=== PATIENT | male | born 1950 | race Caucasian/White ===

== ENCOUNTER 2016-11-30 13:07 | Inpatient (IN) | payer MEDICARE, OTHER ==
[~2016-11-30] VITALS: Ht 180.3 cm; Wt 185.7 kg
[~2016-11-30 13:07] MED LIST: CYCL10TA2 PO; HYDR-2680 PO; LEVO175T5 PO; LEVO200T5 PO; TRAM50TA PO
[2016-11-30 13:43] LABS: BASE EXCESS COOX 5 mmol/L (-3-3); CARBON MONOXIDE 0.2 % (0.0-1.9); HCO3 COOX 26 mmol/L (21-28); METHEMOGLOBIN 0.3 % (0.0-1.9); OXYHEMOGLOBIN 94.1 %; PCO2 COOX 29 mmHg (35-46); PO2 COOX 69 mmHg (65-108); SAT O2 COOX 95 % (92-99)
--- NOTE | 2016-11-30 14:03 | RAD ---
Portable chest, 2017: History: Shortness of breath, hypoxia The heart size and pulmonary vascularity are normal. The lungs are clear. There is no evidence of pleural fluid. IMPRESSION: No acute cardiopulmonary abnormality is detected.
[2016-11-30] MEDS ORDERED: fentaNYL PF VIAL 100 MCG/2 ML VIAL IV PRN ×2 (14:15→18:00)
[2016-11-30 14:27] LABS: PH COOX 7.57 (7.35-7.45)
[2016-11-30 14:28] LABS: FIO2 COOX 40
[2016-11-30 14:44] LABS: BASO % 0 % (0-3); EOS % 1 % (0-3); HEMATOCRIT 45.5 % (39.0-53.0); HEMOGLOBIN 15.1 g/dL (13.0-17.5); LYMPH # 1.4 x10^3/uL (1.0-4.8); LYMPH % 15 % (24-48); MEAN CORPUSCULAR HEMOGLOBIN 32 pg (25-35); MEAN CORPUSCULAR HGB CONC 33 g/dL (31-37); MEAN CORPUSCULAR VOLUME 97 fL (79-100); MONO % 7 % (0-9); NEUT % 77 % (31-73); PLATELET COUNT 182 x10^3/uL (140-400); RED BLOOD COUNT 4.67 x10^6/uL (4.30-5.70); RED CELL DISTRIBUTION WIDTH 14.4 % (11.5-14.5); WHITE BLOOD COUNT 8.8 x10^3/uL (4.0-11.0)
[2016-11-30 14:46] LABS: CALCIUM 9.2 mg/dL (8.5-10.1); CREATININE 1.4 mg/dL (0.7-1.3); GFR 50.9; POTASSIUM 3.5 mmol/L (3.5-5.1)
[2016-11-30 14:52] LABS: ALBUMIN/GLOBULIN RATIO 0.8 (1.0-1.7); TOTAL BILIRUBIN 0.4 mg/dL (0.2-1.0); TOTAL PROTEIN 6.8 g/dL (6.4-8.2)
[2016-11-30 14:57] LABS: INR 1.2 (0.8-1.1); PROTHROMBIN TIME PATIENT 14.5 SEC (11.7-14.0)
[2016-11-30] MEDS ORDERED: CONTRAST GIVEN MC PRN (15:00)
[2016-11-30] MEDS ORDERED: IOHEXOL 300 MG/ML 75 ML VIAL IV ONE (15:00)
--- NOTE | 2016-11-30 15:47 | EKG ---
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
--- NOTE | 2016-11-30 17:09 | RAD ---
Bilateral lower extremity venous ultrasound, 11/30/2016: History: Shortness of breath, leg swelling Duplex evaluation of the deep veins in the lower extremities was performed including grayscale, color-flow and spectral Doppler analysis. This study was partially compromised by the patient's body habitus with suboptimal delineation of the distal superficial femoral veins and the calf veins. The femoral and popliteal veins demonstrate normal compressibility and normal responses to distal augmentation maneuvers. Color imaging of those vessels shows no evidence of intraluminal clot. The visualized deep veins in both calves are patent. IMPRESSION: There is no sonographic evidence of deep vein thrombosis in either lower extremity.
[2016-11-30] MEDS ORDERED: SULFUR HEXAFLUORIDE MICROSPHR 25 MG VIAL. IVP ONE (17:12)
[2016-11-30] MEDS ORDERED: FUROSEMIDE 40 MG/4 ML VIAL. IVP ONE (17:15)
[2016-11-30] MEDS ORDERED: ASPIRIN 325 MG TABLET PO ONE (17:15)
--- NOTE | 2016-11-30 17:19 | PDOC2 ---
JF LARA RESEARCH AND DEVELOPMENT ENGINEER 11/30/16 1719: CARDIAC CONSULT DATE OF CONSULT Date of Consult DATE: 11/30/16 TIME: 16:54 REASON FOR CONSULT Reason for Consult: Shortness of breath REFERRING PHYSICIAN Referring Physician: Dr. Leonard SOURCE Source: Chart review, Patient HISTORY OF PRESENT ILLNESS HISTORY OF PRESENT ILLNESS This is a 66 yo male who presented with complaints of shortness of breath. Began approximately week ago. Saw PCP this past . Diagnosed with bronchitis and started on Cipro. SOA significantly worse over the past two day. Associated with orthopnea. Called EMS. Oxygen saturation noted to be in the 70' s upon their arrival. Placed on BiPAP, which he was unable to tolerate. Presently on NC with mild distress. Denies any chest pain, palpitations, dizziness, diaphoresis, or nausea/vomiting. CXR without vascular congestion. Initial labs notable for trop 0.11 and NT Pro BNP 3286. D-dimer 11.26. Has h/o chronic AFIB not on anticoagulation therapy/ ASA. States he was previously placed on warfarin but did not tolerate \\; experienced nausea/vomiting and bleeding. Does not recall ASA being recommended. PCP is Dr. Alarcon. No h/o CHF or previous cardiac workup to his knowledge. PAST MEDICAL HISTORY Cardiovascular: AFIB, Other (chronic bi LE lympedema ) Pulmonary: No pertinent hx GI: GERD Heme/Onc: No pertinent hx Hepatobiliary: No pertinent hx Psych: No pertinent hx Musculoskeletal: Osteoarthritis Infectious disease: No pertinent hx ENT: No pertinent hx Renal/: No pertinent hx Endocrine: Diabetes ("pre"), Hypothyroidism, Other (obesity ) Dermatology: No pertinent hx PAST SURGICAL HISTORY Past Surgical History: No pertinent history FAMILY HISTORY Family History: Coronary Artery Disease, Heart Disease, Hypertension SOCIAL HISTORY Smoke: No ALCOHOL: rare Drugs: None Lives: with Family ALLERGIES ALLERGIES: Coded Allergies: No Known Drug Allergies (Unverified , 11/08/13) ROS Review of System 14 point ROS conducted with pertinent positives noted above in HPI PHYSICAL EXAM General: Alert, Oriented X3, Cooperative, mild distress HEENT: Atraumatic, Mucous membr. moist/pink Lungs: Other (diminished throughout. ) Heart: Normal S1, Normal S2, Other (IRRR: AFIB) Abdomen: Soft, No tenderness, Other (obese ) Extremities: Normal pulses, Other (significant bi LE lymphedema ) Skin: No breakdown, No significant lesion Neuro: Normal speech, Sensation intact Psych/Mental Status: Mental status NL, Mood NL MUSCULOSKELETAL: Osteoarthritic changes both hands VITALS VITALS Vital Signs Date Time Temp Pulse Resp B/P (MAP) Pulse Ox O2 Delivery O2 Flow Rate FiO2 11/30/16 14:34 110 24 103/83 (90) 98 NonRebreather Mask 15.0 LABS Lab: Laboratory Tests Test 11/30/16 13:35 11/30/16 14:25 O2 Saturation 95 % (92-99) Arterial Blood pH 7.57 (7.35-7.45) Arterial Blood pCO2 at Patient Temp 29 mmHg (35-46) Arterial Blood pO2 at Patient Temp 69 mmHg (65-108) Arterial Blood HCO3 26 mmol/L (21-28) Arterial Blood Base Excess 5 mmol/L (-3-3) Oxyhemoglobin 94.1 % Methemoglobin 0.3 % (0.0-1.9) Carbon Monoxide, Quantitative 0.2 % (0.0-1.9) FiO2 40 White Blood Count 8.8 x10^3/uL (4.0-11.0) Red Blood Count 4.67 x10^6/uL (4.30-5.70) Hemoglobin 15.1 g/dL (13.0-17.5) Hematocrit 45.5 % (39.0-53.0) Mean Corpuscular Volume 97 fL (79-100) Mean Corpuscular Hemoglobin 32 pg (25-35) Mean Corpuscular Hemoglobin Concent 33 g/dL (31-37) Red Cell Distribution Width 14.4 % (11.5-14.5) Platelet Count 182 x10^3/uL (140-400) Neutrophils (%) (Auto) 77 % (31-73) Lymphocytes (%) (Auto) 15 % (24-48) Monocytes (%) (Auto) 7 % (0-9) Eosinophils (%) (Auto) 1 % (0-3) Basophils (%) (Auto) 0 % (0-3) Neutrophils # (Auto) 6.8 x10^3uL (1.8-7.7) Lymphocytes # (Auto) 1.4 x10^3/uL (1.0-4.8) Monocytes # (Auto) 0.6 x10^3/uL (0.0-1.1) Eosinophils # (Auto) 0.1 x10^3/uL (0.0-0.7) Basophils # (Auto) 0.0 x10^3/uL (0.0-0.2) Prothrombin Time 14.5 SEC (11.7-14.0) Prothromb Time International Ratio 1.2 (0.8-1.1) Activated Partial Thromboplast Time 29 SEC (24-38) D-Dimer (Chela) 11.27 ug/mlFEU (0.00-0.50) Sodium Level 138 mmol/L (136-145) Potassium Level 3.5 mmol/L (3.5-5.1) Chloride Level 99 mmol/L (98-107) Carbon Dioxide Level 28 mmol/L (21-32) Anion Gap 11 (6-14) Blood Urea Nitrogen 28 mg/dL (8-26) Creatinine 1.4 mg/dL (0.7-1.3) Estimated GFR (Cockcroft-Gault) 50.9 BUN/Creatinine Ratio 20 (6-20) Glucose Level 169 mg/dL (70-99) Lactic Acid Level 2.3 mmol/L (0.4-2.0) Calcium Level 9.2 mg/dL (8.5-10.1) Total Bilirubin 0.4 mg/dL (0.2-1.0) Aspartate Amino Transf (AST/SGOT) 25 U/L (15-37) Alanine Aminotransferase (ALT/SGPT) 23 U/L (16-63) Alkaline Phosphatase 47 U/L (46-116) Troponin I Quantitative 0.110 ng/mL (0.000-0.055) OI-Rxt-O-Type Natriuretic Peptide 3286 pg/mL (0-124) Total Protein 6.8 g/dL (6.4-8.2) Albumin 3.0 g/dL (3.4-5.0) Albumin/Globulin Ratio 0.8 (1.0-1.7) ASSESSMENT/PLAN ASSESSMENT/PLAN 1. Acute hypoxic respiratory failure 2. Acute suspected diastolic heart failure 3. Mild troponin elevation 4. Chronic AFIB 5. FIGUEROA 6. Elevated d-dimer 7. Hypothyroidism 8. Chronic LE lymphedema Recommendations Check echo to evaluate LV function. ? chronic diastolic HF Diuresis with monitoring of renal function Trend troponin although suspect mild elevation is type II, demand ischemia secondary to hypoxia Check lipids [id number] score 2 correlating with a 2.2% risk for stroke. Consider OAC. Add ASA for now Further recommendations pending diagnostics. Problems: ROGER CURRIE MD 11/30/162030: CARDIAC CONSULT ALLERGIES ALLERGIES: Coded Allergies: No Known Drug Allergies (Unverified , 11/08/13) ASSESSMENT/PLAN ASSESSMENT/PLAN Pt. seen and examined. 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 66 y.o morbidly obese man presenting for acute on chronic diastolic HF. On exam he has tachypnea, severe bilateral 4+ pitting edema. Needs aggressive diuresis. May need cardioversion. Supportive care. Poor prognosis. Discussed with . Problems: JF LARA APRN Nov 30, 2016 17:19 ROGER CURRIE MD Nov 30, 2016 20:31
--- NOTE | 2016-11-30 17:35 | ED.ADGEN ---
Past Medical History Past Medical History: A-Fib, Hypothyroid Additional Past Medical Histor: lymphedema Past Surgical History: Other Additional Past Surgical Histo: jaw Alcohol Use: Occasionally Drug Use: None Adult General Chief Complaint Chief Complaint: SHORTNESS OF BREATH HPI HPI Patient is a 66 year old woman, history of atrial fibrillation, lymphedema, who presents to the emergency department via EMS in respiratory failure. Patient states that he was seen by his primary care provider earlier this week, was diagnosed with bronchitis. States worsening shortness breath the past 2 days , acutely worsened today, EMS was contacted and found the patient to be hypoxic with an oxygen saturation of 76%, respiratory rate in the 30s. Patient noted to be in respiratory failure upon arrival to the emergency department, oxygen saturation in the mid 90s on nonrebreather. Patient was transitioned to BiPAP. Patient denies any chest pain, denies any change in his lymphedema and chronic wounds, any fevers or chills, any recent travel or surgery, and history of DVT or PE, any nausea or vomiting. States that he has not been coughing over the past several days. Denies any travel, any focal weakness, numbness, tingling, headache or other complaints. Review of Systems Review of Systems Constitutional: Denies fever or chills. [] Eyes: Denies change in visual acuity. [] HENT: Denies nasal congestion or sore throat. [] Respiratory: Worsening shortness of breath, nonproductive cough for the past several days. Cardiovascular: Denies chest pain, has unchanged chronic lymphedema. GI: Denies abdominal pain, nausea, vomiting, bloody stools or diarrhea. [] : Denies dysuria. [] Musculoskeletal: Denies back pain or joint pain. [] Integument: Denies rash. [] Neurologic: Denies headache, focal weakness or sensory changes. [] Endocrine: Denies polyuria or polydipsia. [] Lymphatic: Denies swollen glands. [] Psychiatric: Denies depression or anxiety. [] Current Medications Current Medications Current Medications Medications (Trade) Dose Ordered Sig/Melyssa Start Time Stop Time Status Last Admin Dose Admin Fentanyl Citrate (Fentanyl 2ml Vial) 25 mcg PRN Q15MIN PRN 11/30/16 14:15 12/01/16 14:14 Info (Do NOT chart on this entry -- for MONITORING) 1 each PRN DAILY PRN 11/30/16 15:00 12/02/16 14:59 Iohexol (Omnipaque 300 Mg/ml) 75 ml 1X ONCE 11/30/16 15:00 11/30/16 15:03 DC Allergies Allergies Allergies Coded Allergies Type Severity Reaction Last Updated Verified No Known Drug Allergies 11/08/13 No Physical Exam Physical Exam Constitutional: Well developed, well nourished, significant respiratory distress , non-toxic appearance. [] HENT: Normocephalic, atraumatic, bilateral external ears normal, oropharynx moist, no oral exudates, nose normal. [] Eyes: PERRLA, EOMI, conjunctiva normal, no discharge. [] Neck: Normal range of motion, no tenderness, supple, no stridor. [] Cardiovascular: Tachycardic, regular, S1, S2, no rubs or gallops. [] Lungs & Thorax: Diminished breath sounds based bilaterally, limited secondary to body habitus and patient compliance. No significant rales or rhonchi identified, no lesions, no tenderness to palpation. [] Abdomen: Bowel sounds normal, obese, soft, no tenderness, no masses, no pulsatile masses. [] Skin: Warm, dry, no erythema, no rash. [] Back: No tenderness, no CVA tenderness. [] Extremities: No tenderness, no cyanosis, no clubbing, ROM intact, patient with chronic and severe lymphedema, with chronic skin changes noted, mild tenderness throughout bilateral lower extremities, area of chronic wounds, but no evidence of active infection or inflammation, no evidence of abscess formation or induration. No acute injuries identified. Neurologic: Alert and oriented X 3, normal motor function, normal sensory function, no focal deficits noted. [] Psychologic: Affect normal, judgement normal, mood normal. [] Current Patient Data Vital Signs Vital Signs Date Time Temp Pulse Resp B/P (MAP) Pulse Ox O2 Delivery O2 Flow Rate FiO2 11/30/16 16:14 110 20 140/95 (110) 94 Nasal Cannula 3.0 Lab Values Laboratory Tests Test 11/30/16 13:35 11/30/16 14:25 O2 Saturation 95 % (92-99) Arterial Blood pH 7.57 (7.35-7.45) *H Arterial Blood pCO2 at Patient Temp 29 mmHg (35-46) L Arterial Blood pO2 at Patient Temp 69 mmHg (65-108) Arterial Blood HCO3 26 mmol/L (21-28) Arterial Blood Base Excess 5 mmol/L (-3-3) H Oxyhemoglobin 94.1 % Methemoglobin 0.3 % (0.0-1.9) Carbon Monoxide, Quantitative 0.2 % (0.0-1.9) FiO2 40 White Blood Count 8.8 x10^3/uL (4.0-11.0) Red Blood Count 4.67 x10^6/uL (4.30-5.70) Hemoglobin 15.1 g/dL (13.0-17.5) Hematocrit 45.5 % (39.0-53.0) Mean Corpuscular Volume 97 fL (79-100) Mean Corpuscular Hemoglobin 32 pg (25-35) Mean Corpuscular Hemoglobin Concent 33 g/dL (31-37) Red Cell Distribution Width 14.4 % (11.5-14.5) Platelet Count 182 x10^3/uL (140-400) Neutrophils (%) (Auto) 77 % (31-73) H Lymphocytes (%) (Auto) 15 % (24-48) L Monocytes (%) (Auto) 7 % (0-9) Eosinophils (%) (Auto) 1 % (0-3) Basophils (%) (Auto) 0 % (0-3) Neutrophils # (Auto) 6.8 x10^3uL (1.8-7.7) Lymphocytes # (Auto) 1.4 x10^3/uL (1.0-4.8) Monocytes # (Auto) 0.6 x10^3/uL (0.0-1.1) Eosinophils # (Auto) 0.1 x10^3/uL (0.0-0.7) Basophils # (Auto) 0.0 x10^3/uL (0.0-0.2) Prothrombin Time 14.5 SEC (11.7-14.0) H Prothrombin Time INR 1.2 (0.8-1.1) H PTT 29 SEC (24-38) D-Dimer (Chela) 11.27 ug/mlFEU (0.00-0.50) H Sodium Level 138 mmol/L (136-145) Potassium Level 3.5 mmol/L (3.5-5.1) Chloride Level 99 mmol/L (98-107) Carbon Dioxide Level 28 mmol/L (21-32) Anion Gap 11 (6-14) Blood Urea Nitrogen 28 mg/dL (8-26) H Creatinine 1.4 mg/dL (0.7-1.3) H Estimated GFR (Cockcroft-Gault) 50.9 BUN/Creatinine Ratio 20 (6-20) Glucose Level 169 mg/dL (70-99) H Lactic Acid Level 2.3 mmol/L (0.4-2.0) H Calcium Level 9.2 mg/dL (8.5-10.1) Total Bilirubin 0.4 mg/dL (0.2-1.0) Aspartate Amino Transferase (AST) 25 U/L (15-37) Alanine Aminotransferase (ALT) 23 U/L (16-63) Alkaline Phosphatase 47 U/L (46-116) Troponin I Quantitative 0.110 ng/mL (0.000-0.055) ZO-Uzm-M-Type Natriuretic Peptide 3286 pg/mL (0-124) H Total Protein 6.8 g/dL (6.4-8.2) Albumin 3.0 g/dL (3.4-5.0) L Albumin/Globulin Ratio 0.8 (1.0-1.7) L Laboratory Tests 11/30/16 14:25 Laboratory Tests 11/30/16 14:25 EKG EKG ECG: Irregular rhythm, atrial fibrillation, heart rate 113 bpm, no ST elevations or depressions, abnormal ECG, does not meet STEMI criteria. As interpreted by me. [] Radiology/Procedures Radiology/Procedures [][facility] [address] [place], [place] [id number] IMAGING REPORT Signed PATIENT: TELMA EID ACCOUNT: [id number] : 1950 LOCATION: ER AGE: 66 SEX: M EXAM STATUS: REG ER ORD. PHYSICIAN: EVELINA MARIE DO REASON: SOB/Hypoxia PROCEDURE: PORTABLE CHEST 1V Portable chest, 2016: History: Shortness of breath, hypoxia The heart size and pulmonary vascularity are normal. The lungs are clear. There is no evidence of pleural fluid. IMPRESSION: No acute cardiopulmonary abnormality is detected. DICTATED and SIGNED BY: ANIL RETANA MD DATE: 11/30/16 1400 CC: EVELINA MARIE DO; ANALIA NANCE MD ~ Impressions: [facility] [address] [place] [address] IMAGING REPORT Signed PATIENT: TELMA EID ACCOUNT: [id number] : 1950 LOCATION: ER AGE: 66 SEX: M EXAM STATUS: REG ER ORD. PHYSICIAN: EVELINA MARIE DO REASON: Swelling b/l, SOB PROCEDURE: VENOUS LOWER EXT BILATERAL Bilateral lower extremity venous ultrasound, 11/30/2016: History: Shortness of breath, leg swelling Duplex evaluation of the deep veins in the lower extremities was performed including grayscale, color-flow and spectral Doppler analysis. This study was partially compromised by the patient's body habitus with suboptimal delineation of the distal superficial femoral veins and the calf veins. The femoral and popliteal veins demonstrate normal compressibility and normal responses to distal augmentation maneuvers. Color imaging of those vessels shows no evidence of intraluminal clot. The visualized deep veins in both calves are patent. IMPRESSION: There is no sonographic evidence of deep vein thrombosis in either lower extremity. DICTATED and SIGNED BY: ANIL RETANA MD DATE: 11/30/16 1705 CC: EVELINA MARIE DO; ANALIA NANCE MD ~ Course & Med Decision Making Course & Med Decision Making Pertinent Labs and Imaging studies reviewed. (See chart for details) Patient placed on BiPAP, oxygen saturations improved 100%, with improvement of work of breathing, however patient wasn't able tolerate BiPAP after initial improvement and was transitioned to 3 L nasal cannula, oxygen saturations are in the low to mid 90s, he had still some increased work of breathing but is tolerating this much better than BiPAP. Initial ABG was consistent with patient' s presentation of hyperventilation, with a pH of 7.57, PCO2 of 28, PO2 of 68, and bicarbonate of 26. Patient's troponin positive at 0.110, with a proBNP just over 3000, chest x-ray does not reveal evidence of vascular congestion or other concerning findings. O2 saturation as stated is improved, as is his work of breathing, I did attempt to obtain CT of the patient's chest for further evaluation of his symptoms, however the patient was unable to lie flat after multiple attempts. I did speak with Dr. Kidd of pulmonary critical care, who requested that a stat echo the patient's heart be obtained to rule out pericardial effusion as expiration for patient's symptoms, patient was evaluated at bedside by Dr. Moe santos of cardiology, with stat echo obtained, does not reveal evidence of large pleural effusion other concerning findings. Ultrasound of the patient's lower extremities reveal no evidence of DVT, d-dimer was positive at 11.26. Dr. Kidd updated, a V/Q study ordered after discussion, it is pending at this time, but with hypoxia, history of atrial fibrillation, without any contraindications, he requests the patient is fully anticoagulated with heparin. I did discuss this with patient and at bedside , patient is more comfortable at this time, blood pressure remains 1 teens over 80s, patient remains in atrial fibrillation heart rate between 90s to 1 teens, oxygen saturation 92% on 3 L nasal cannula, with work of breathing significantly improved. Again he states he has no contraindication to receiving heparin, is agreeable plan to receive heparin full dose for potential PE, and understands the implications of the positive troponin, although I believe this is likely positive secondary to hypoxia as opposed to an obstructive lesion. Patient receiving Lasix for diuresis. Patient will have further evaluation with cardiology as stated, serial enzymes ordered. All questions answered to patient and family satisfaction at this time. Dragon Disclaimer Dragon Disclaimer This electronic medical record was generated, in whole or in part, using a voice recognition dictation system. Departure Impression: Primary Impression: Hypoxia Additional Impression: Congestive heart failure Disposition: ADMITTED INPATIENT Admitting Physician: Other Condition: IMPROVED Critical Care Time Critical care time was 20 minutes exclusive of procedures. Problem Qualifiers EVELINA MARIE DO Nov 30, 2016 17:35
[2016-11-30] MEDS ORDERED: HEPARIN for IV BOLUS 10,000 UNIT/10 ML VIAL. IV ONE (17:45)
[2016-11-30] MEDS ORDERED: HEPARIN for IV BOLUS 10,000 UNIT/10 ML VIAL. IV PRN ×2 (17:45)
[2016-11-30] MEDS ORDERED: NITROGLYCERIN SUBLINGUAL 0.4 MG BOTTLE OF 25. SL PRN (18:00)
[2016-11-30] MEDS ORDERED: ACETAMINOPHEN 325 MG TABLET. PO PRN (18:00)
[2016-11-30] MEDS ORDERED: ONDANSETRON PF 4 MG/2 ML VIAL. IV PRN (18:00)
[2016-11-30] MEDS: HEPARIN 25,000UTS/500ML PREMIX 500 ML IV PRN (18:25)
--- NOTE | 2016-11-30 18:38 | PDOC1 ---
History and Physical Date of Admission Date of Admission DATE: 11/30/16 TIME: 18:37 Identification/Chief Complaint Chief Complaint SOB Problems: Source Source: Patient History of Present Illness History of Present Illness Mr Coto is a 66 yo male who presented to [facility] ER with shortness of breath. He states that he started having breathing difficulties when he "dislocated a rib" Wednesday 1 week ago. He went to his chiropractor who took care of the rib, but his breathing did not improve, on the contrary, he became worse, with mostly unproductive cough. With beginning to have sx as well, they both went to their PCP and were diagnosed with bronchitis and received cipro. She improved, he got worse, to the point where this AM he was unable to get up and EMS were called. He was found with pOx in he 70s. He denied any CP, palpitations, diaphoresis or GI symptoms. He has no significant heart history except an episode of Afib which apparently was attributed to a central catheter being advanced into [facility]. In the ER, he was started on BiPAP, which he only tolerated for a brief period. CXR was clear, but troponin was elevated at 0.11 , proBNP at 3286 and DDimer at 11.26. VQ scan is pending. He is admitted to the [facility] for further monitoring and work up. Past Medical History Cardiovascular: AFIB, Other (chronic bi LE lympedema ) Pulmonary: No pertinent hx GI: GERD Heme/Onc: No pertinent hx Musculoskeletal: Osteoarthritis, Other (chronic LE lymphedema x8+ years) Endocrine: Diabetes ("pre"), Hypothyroidism, Other (obesity ) Past Surgical History Past Surgical History: No pertinent history Family History Family History: Coronary Artery Disease, Heart Disease, Hypertension Social History Smoke: No ALCOHOL: rare Drugs: None Current Medications Current Medications Current Medications Fentanyl Citrate (Fentanyl 2ml Vial) 25 mcg PRN Q15MIN PRN IV PAIN GREATER THAN 3/10; Start 11/30/16 at 14:15; Stop 12/01/16 at 14:14 Iohexol (Omnipaque 300 Mg/ml) 75 ml 1X ONCE IV ; Start 11/30/16 at 15:00; Stop 11/30/16 at 15:03; Status DC Info (Do NOT chart on this entry -- for MONITORING) 1 each PRN DAILY PRN MC SEE COMMENTS; Start 11/30/16 at 15:00; Stop 12/02/16 at 14:59 Furosemide (Lasix) 40 mg 1X ONCE IVP Last administered on 11/30/16 17:39; Start 11/30/16 at 17:15; Stop 11/30/16 at 17:16; Status DC Sulfur Hexafluoride Microspheres (Lumason) 25 mg STK-MED ONCE IVP ; Start at 17:12; Stop 11/30/16 at 17:13; Status DC Aspirin (Georgette Aspirin) 325 mg 1X ONCE PO Last administered on 11/30/16 17:38 ; Start 11/30/16 at 17:15; Stop 11/30/16 at 17:17; Status DC Aspirin (Ecotrin) 325 mg DAILYWBKFT PO ; Start 12/01/16 at 08:00 Heparin Sodium (Porcine) (Heparin Sodium) 10,000 unit 1X ONCE IV Last administered on 11/30/16 18:20; Start 11/30/16 at 17:45; Stop 11/30/16 at 17:46 ; Status DC Heparin Sodium/ Dextrose 500 ml @ 0 mls/hr CONT PRN IV SEE I/O RECORD Last administered on 11/30/16 18:25; Start 11/30/16 at 17:45 Heparin Sodium (Porcine) (Heparin Sodium) 5,500 unit PRN Q6HRS PRN IV FOR UFH LEVEL LESS THAN 0.2; Start 11/30/16 at 17:45 Heparin Sodium (Porcine) (Heparin Sodium) 2,750 unit PRN Q6HRS PRN IV FOR UFH LEVEL 0.2 - 0.29; Start 11/30/16 at 17:45 Ondansetron HCl (Zofran) 4 mg PRN Q8HRS PRN IV NAUSEA/VOMITING; Start 11/30/16 at 18:00; Stop 12/01/16 at 17:59 Fentanyl Citrate (Fentanyl 2ml Vial) 50 mcg PRN Q1HR PRN IV PAIN; Start at 18:00; Stop 12/01/16 at 17:59 Acetaminophen (Tylenol) 650 mg PRN Q4HRS PRN PO FEVER; Start 11/30/16 at 18:00 ; Stop 12/01/16 at 17:59 Nitroglycerin (Nitrostat) 0.4 mg PRN Q5MIN PRN SL CHEST PAIN; Start 11/30/16 at 18:00; Stop 12/01/16 at 17:59 Active Scripts Active Cyclobenzaprine Hcl 10 Mg Tablet 10 Mg PO TID PRN 30 Days Reported Tramadol Hcl 50 Mg Tablet 50 Mg PO Q6H PRN Lortab 10-325 mg Tablet (Hydrocodone/Acetaminophen) 1 Each Tablet 1 Tab PO PRN Q4HRS PRN Levothyroxine Sodium 200 Mcg Tablet 225 Mcg PO DAILYAC Levothyroxine Sodium 175 Mcg Tablet 175 Mcg PO DAILYAC Allergies Allergies: Coded Allergies: No Known Drug Allergies (Unverified , 11/08/13) ROS General: No: Chills PSYCHOLOGICAL ROS: No: Anxiety Eyes: No Blurry vision HEENT: No: Heacaches ALLERGY AND IMMUNOLOGY: No: Nasal Congestion Hematological and Lymphatic: No: Bleeding Problems Respiratory: YES: Shortness of breath, SOB with excertion, No: Hemoptysis, Orthopnea, Pleuritic Pain Cardiovascular: No Chest Pain, No Palpitations Gastrointestinal: No Nausea Genitourinary: No Dysuria Musculoskeletal: Yes Joint Pain Neurological: No Headaches Skin: Yes Dry Skin Physical Exam General: Alert, Oriented X3, Cooperative, No acute distress HEENT: Atraumatic Lungs: Clear to auscultation Heart: RRR Abdomen: Normal bowel sounds, Soft, No tenderness Extremities: Other (massive woody and pitting edema bilat LE) Skin: No rashes Neuro: Normal speech Psych/Mental Status: Mood NL Vitals Vitals Vital Signs Date Time Temp Pulse Resp B/P (MAP) Pulse Ox O2 Delivery O2 Flow Rate FiO2 11/30/16 16:44 104 18 106/64 (78) 94 Nasal Cannula 3.0 Labs Labs Laboratory Tests Test 11/30/16 13:35 11/30/16 14:25 O2 Saturation 95 % (92-99) Arterial Blood pH 7.57 (7.35-7.45) Arterial Blood pCO2 at Patient Temp 29 mmHg (35-46) Arterial Blood pO2 at Patient Temp 69 mmHg (65-108) Arterial Blood HCO3 26 mmol/L (21-28) Arterial Blood Base Excess 5 mmol/L (-3-3) Oxyhemoglobin 94.1 % Methemoglobin 0.3 % (0.0-1.9) Carbon Monoxide, Quantitative 0.2 % (0.0-1.9) FiO2 40 White Blood Count 8.8 x10^3/uL (4.0-11.0) Red Blood Count 4.67 x10^6/uL (4.30-5.70) Hemoglobin 15.1 g/dL (13.0-17.5) Hematocrit 45.5 % (39.0-53.0) Mean Corpuscular Volume 97 fL (79-100) Mean Corpuscular Hemoglobin 32 pg (25-35) Mean Corpuscular Hemoglobin Concent 33 g/dL (31-37) Red Cell Distribution Width 14.4 % (11.5-14.5) Platelet Count 182 x10^3/uL (140-400) Neutrophils (%) (Auto) 77 % (31-73) Lymphocytes (%) (Auto) 15 % (24-48) Monocytes (%) (Auto) 7 % (0-9) Eosinophils (%) (Auto) 1 % (0-3) Basophils (%) (Auto) 0 % (0-3) Neutrophils # (Auto) 6.8 x10^3uL (1.8-7.7) Lymphocytes # (Auto) 1.4 x10^3/uL (1.0-4.8) Monocytes # (Auto) 0.6 x10^3/uL (0.0-1.1) Eosinophils # (Auto) 0.1 x10^3/uL (0.0-0.7) Basophils # (Auto) 0.0 x10^3/uL (0.0-0.2) Prothrombin Time 14.5 SEC (11.7-14.0) Prothromb Time International Ratio 1.2 (0.8-1.1) Activated Partial Thromboplast Time 29 SEC (24-38) D-Dimer (Chela) 11.27 ug/mlFEU (0.00-0.50) Sodium Level 138 mmol/L (136-145) Potassium Level 3.5 mmol/L (3.5-5.1) Chloride Level 99 mmol/L (98-107) Carbon Dioxide Level 28 mmol/L (21-32) Anion Gap 11 (6-14) Blood Urea Nitrogen 28 mg/dL (8-26) Creatinine 1.4 mg/dL (0.7-1.3) Estimated GFR (Cockcroft-Gault) 50.9 BUN/Creatinine Ratio 20 (6-20) Glucose Level 169 mg/dL (70-99) Lactic Acid Level 2.3 mmol/L (0.4-2.0) Calcium Level 9.2 mg/dL (8.5-10.1) Total Bilirubin 0.4 mg/dL (0.2-1.0) Aspartate Amino Transf (AST/SGOT) 25 U/L (15-37) Alanine Aminotransferase (ALT/SGPT) 23 U/L (16-63) Alkaline Phosphatase 47 U/L (46-116) Troponin I Quantitative 0.110 ng/mL (0.000-0.055) NK-Qwk-X-Type Natriuretic Peptide 3286 pg/mL (0-124) Total Protein 6.8 g/dL (6.4-8.2) Albumin 3.0 g/dL (3.4-5.0) Albumin/Globulin Ratio 0.8 (1.0-1.7) Laboratory Tests Test 11/30/16 13:35 11/30/16 14:25 O2 Saturation 95 % (92-99) Arterial Blood pH 7.57 (7.35-7.45) Arterial Blood pCO2 at Patient Temp 29 mmHg (35-46) Arterial Blood pO2 at Patient Temp 69 mmHg (65-108) Arterial Blood HCO3 26 mmol/L (21-28) Arterial Blood Base Excess 5 mmol/L (-3-3) Oxyhemoglobin 94.1 % Methemoglobin 0.3 % (0.0-1.9) Carbon Monoxide, Quantitative 0.2 % (0.0-1.9) FiO2 40 White Blood Count 8.8 x10^3/uL (4.0-11.0) Red Blood Count 4.67 x10^6/uL (4.30-5.70) Hemoglobin 15.1 g/dL (13.0-17.5) Hematocrit 45.5 % (39.0-53.0) Mean Corpuscular Volume 97 fL (79-100) Mean Corpuscular Hemoglobin 32 pg (25-35) Mean Corpuscular Hemoglobin Concent 33 g/dL (31-37) Red Cell Distribution Width 14.4 % (11.5-14.5) Platelet Count 182 x10^3/uL (140-400) Neutrophils (%) (Auto) 77 % (31-73) Lymphocytes (%) (Auto) 15 % (24-48) Monocytes (%) (Auto) 7 % (0-9) Eosinophils (%) (Auto) 1 % (0-3) Basophils (%) (Auto) 0 % (0-3) Neutrophils # (Auto) 6.8 x10^3uL (1.8-7.7) Lymphocytes # (Auto) 1.4 x10^3/uL (1.0-4.8) Monocytes # (Auto) 0.6 x10^3/uL (0.0-1.1) Eosinophils # (Auto) 0.1 x10^3/uL (0.0-0.7) Basophils # (Auto) 0.0 x10^3/uL (0.0-0.2) Prothrombin Time 14.5 SEC (11.7-14.0) Prothromb Time International Ratio 1.2 (0.8-1.1) Activated Partial Thromboplast Time 29 SEC (24-38) D-Dimer (Chela) 11.27 ug/mlFEU (0.00-0.50) Sodium Level 138 mmol/L (136-145) Potassium Level 3.5 mmol/L (3.5-5.1) Chloride Level 99 mmol/L (98-107) Carbon Dioxide Level 28 mmol/L (21-32) Anion Gap 11 (6-14) Blood Urea Nitrogen 28 mg/dL (8-26) Creatinine 1.4 mg/dL (0.7-1.3) Estimated GFR (Cockcroft-Gault) 50.9 BUN/Creatinine Ratio 20 (6-20) Glucose Level 169 mg/dL (70-99) Lactic Acid Level 2.3 mmol/L (0.4-2.0) Calcium Level 9.2 mg/dL (8.5-10.1) Total Bilirubin 0.4 mg/dL (0.2-1.0) Aspartate Amino Transf (AST/SGOT) 25 U/L (15-37) Alanine Aminotransferase (ALT/SGPT) 23 U/L (16-63) Alkaline Phosphatase 47 U/L (46-116) Troponin I Quantitative 0.110 ng/mL (0.000-0.055) AU-Tuf-Z-Type Natriuretic Peptide 3286 pg/mL (0-124) Total Protein 6.8 g/dL (6.4-8.2) Albumin 3.0 g/dL (3.4-5.0) Albumin/Globulin Ratio 0.8 (1.0-1.7) VTE Prophylaxis Ordered VTE Prophylaxis Devices: No VTE Pharmacological Prophylaxi: Yes Assessment/Plan Assessment/Plan Mr Coto is a 66 y/o morbidly obese man with worsening SOB over the past week and signs and symptoms of CHF exacerbation. He is admitted to the [facility] for further observation and work up. His breathing currently is fairly stable. continue suppl O2 by nasal cannula. VQ scan is pending to rule out PE, given the significantly elevated DDimer. IV heparin has beens started. Cardiology has been consulted already and echo has been obtained, with results pending. will await further recommendations. The suspected diagnosis was discussed with him and his family. all questions were answered. Cardiac enzymes and tele will be obtained to rule out ACS. He will undergo further testing for other cardiac risk factor testing, incl HgbA1c and lipid profile. Home medications have been reviewed and restarted. WAQAR IBANEZ MD Nov 30, 2016 18:38
[2016-11-30 19:25] VITALS: BP 102/67
[2016-11-30 19:47] LABS: BILIRUBIN,URINE NEGATIVE (NEG); GLUCOSE,URINE NEGATIVE (NEG); NITRITE,URINE NEGATIVE (NEG); PH,URINE 5.5; PROTEIN,URINE NEGATIVE (NEG-TRACE); UROBILINOGEN,URINE 0.2 mg/dL (0.2 mg/dL)
[2016-11-30 19:55] LABS: BACTERIA,URINE 0 /HPF (0-FEW); RBC,URINE 0 /HPF (0-2); WBC,URINE OCC /HPF (0-4)
[2016-11-30 19:56] LABS: SQUAMOUS EPITHELIAL CELL,UR OCC /LPF
[2016-11-30] MEDS ORDERED: traMADol 50 MG TABLET PO PRN (20:15)
[2016-11-30] MEDS ORDERED: CYCLOBENZAPRINE 10 MG TABLET. PO PRN (20:15)
[2016-11-30 23:53] VITALS: BP 109/67
--- NOTE | 2016-12-01 00:03 | ACF ---
Admission Forms Criteria HEART FAILURE: COMMON COMPLICATIONS (Place 'X' for any and all applicable criteria): Ongoing inpatient care may be indicated for heart failure with 1 or more of the following (1)(2)(3)(4)(5)(6)(7)(8): [ ]I. New-onset heart failure [ ]II. Acute cardiac ischemia causing or associated with failure [ ]III. Ongoing need for care for primary condition requiring frequent therapy adjustments because of changes in cardiac function (eg, drug dosage changes for drugs that are renally metabolized) [X]IV. Complications of heart failure, including 1 or more of the following: [ ]a) Hemodynamic instability [ ]b) Pericardial effusion [ ]c) Symptomatic pleural effusion [ ]d) Hypoxemia [ ]e) Tachypnea [X]f) Dyspnea [ ]g) Syncope [ ]h) Altered mental status [ ]i) Acute renal insufficiency that is severe (reduction of more than 50% in estimated glomerular filtration rate from baseline) or progressive reduction of more than 25% in estimated glomerular filtration rate from baseline, with creatinine continuing to rise) [ ]j) Debilitating anasarca (eg tissue breakdown with infection, inability to void due to edema) (E) [ ]k) Clinically significant metabolic abnormalities due to heart failure (eg, new-onset metabolic acidosis) Extended stay may be needed until ALL of the following are present (1)(3)(18)(41 )(55) [ ]a) Hemodynamic stability [ ]b) Stable and effective diuretic regimen established (or patient on stable dialysis regimen if in chronic renal failure) [ ]c) Volume status acceptable on oral medication [ ]d) Breathing comfortably at rest [ ]e) Saturation of arterial oxygen greater than 90% or at acceptable baseline [ ]f) Pulmonary edema absent or improved [ ]g) Peripheral or sacral edema absent or improved [ ]h) Renal function stable and manageable at a lower level of care [ ]i) Complications (eg, pleural effusion) resolved or manageable at a lower level of care [ ]g) Patient or caregiver has received written discharge instructions or educational material addressing activity level, diet, discharge medications, follow-up appointment, weight monitoring, and what to do if symptoms worsen.(25)(26) The original [facility] [employer] content created by [employer] has been revised. The portions of the content which have been revised are identified through the use of italic text, and [facility] has neither reviewed nor approved the modified material.All other unmodified content is copyright [facility]. Please see references footnoted in the original [facility] edition 2015 Admission Criteria Met?: Yes ROSS DAVIS Dec 01, 2016 00:03
[2016-12-01 00:33] LABS: BASO # 0.1 x10^3/uL (0.0-0.2); BASO % 1 % (0-3); EOS % 1 % (0-3); HEMATOCRIT 45.6 % (39.0-53.0); HEMOGLOBIN 15.3 g/dL (13.0-17.5); LYMPH # 2.7 x10^3/uL (1.0-4.8); LYMPH % 30 % (24-48); MEAN CORPUSCULAR HEMOGLOBIN 33 pg (25-35); MEAN CORPUSCULAR HGB CONC 34 g/dL (31-37); MEAN CORPUSCULAR VOLUME 97 fL (79-100); MONO % 9 % (0-9); NEUT % 60 % (31-73); PLATELET COUNT 188 x10^3/uL (140-400); RED BLOOD COUNT 4.69 x10^6/uL (4.30-5.70); RED CELL DISTRIBUTION WIDTH 14.2 % (11.5-14.5); WHITE BLOOD COUNT 9.1 x10^3/uL (4.0-11.0)
[2016-12-01 00:47] LABS: CREATININE 1.2 mg/dL (0.7-1.3); GFR 60.8; POTASSIUM 3.2 mmol/L (3.5-5.1)
[2016-12-01 01:18] LABS: CHOLESTEROL/HDL RATIO 5.1
[2016-12-01 02:40] VITALS: BP 105/72
[2016-12-01] MEDS: HEPARIN 25,000UTS/500ML PREMIX 500 ML IV PRN ×3 (02:43→17:00)
[2016-12-01] MEDS: HYDROcodone/APAP 10/325 1 TAB TABLET PO PRN ×3 (02:47→21:31)
[2016-12-01 07:00] VITALS: BP 103/77
--- NOTE | 2016-12-01 09:01 | PDOC2 ---
CONSULT Date of Consult Date of Consult DATE: 12/01/16 TIME: 08:51 Reason for Consult Reason for Consult: RF/HYPOXIA Identification/Chief Complaint Chief Complaint soa Problems: History of Present Illness Reason for Visit: Patient is a 66 year old woman, history of atrial fibrillation, lymphedema, who presents to the emergency department via EMS in respiratory failure. Patient states that he was seen by his primary care provider earlier this week, was diagnosed with bronchitis. States worsening shortness breath the past 2 days , acutely worsened yesterday, EMS was contacted and found the patient to be hypoxic with an oxygen saturation of 76%, respiratory rate in the 30s. Patient noted to be in respiratory failure upon arrival to the emergency department, oxygen saturation in the mid 90s on nonrebreather. Patient was transitioned to BiPAP. Patient denies any chest pain, denies any change in his lymphedema and chronic wounds, any fevers or chills, any recent travel or surgery, and history of DVT or PE, any nausea or vomiting. States that he has not been coughing over the past several days.His had similar symptoms. Denies any travel, any focal weakness, numbness, tingling, headache or other complaints. He says his left rib was dislocated recently and chiropracter popped it back. no imaging studies done.He has been deny V/Q or CTA chest as he cannot lay flat and insist that its his bronchitis that's causing all symptoms Past Medical History Cardiovascular: AFIB, Other (chronic bi LE lympedema ) Pulmonary: No pertinent hx GI: GERD Heme/Onc: No pertinent hx Musculoskeletal: Osteoarthritis, Other (chronic LE lymphedema x8+ years) Endocrine: Diabetes ("pre"), Hypothyroidism, Other (obesity ) Past Surgical History Past Surgical History: No pertinent history Family History Family History: Coronary Artery Disease, Heart Disease, Hypertension, Other ( no h/o PE/DVT) Social History No ALCOHOL: rare Drugs: None Lives: with Family Current Problem List Problem List Problems Medical Problems: (1) Congestive heart failure Status: Acute (2) Hypoxia Status: Acute Current Medications Current Medications Current Medications Fentanyl Citrate (Fentanyl 2ml Vial) 25 mcg PRN Q15MIN PRN IV PAIN GREATER THAN 3/10; Start 11/30/16 at 14:15; Stop 11/30/16 at 20:05; Status DC Iohexol (Omnipaque 300 Mg/ml) 75 ml 1X ONCE IV ; Start 11/30/16 at 15:00; Stop 11/30/16 at 15:03; Status DC Info (Do NOT chart on this entry -- for MONITORING) 1 each PRN DAILY PRN MC SEE COMMENTS; Start 11/30/16 at 15:00; Stop 12/02/16 at 14:59 Furosemide (Lasix) 40 mg 1X ONCE IVP Last administered on 11/30/16 17:39; Start 11/30/16 at 17:15; Stop 11/30/16 at 17:16; Status DC Sulfur Hexafluoride Microspheres (Lumason) 25 mg STK-MED ONCE IVP ; Start at 17:12; Stop 11/30/16 at 17:13; Status DC Aspirin (Georgette Aspirin) 325 mg 1X ONCE PO Last administered on 11/30/16 17:38 ; Start 11/30/16 at 17:15; Stop 11/30/16 at 17:17; Status DC Aspirin (Ecotrin) 325 mg DAILYWBKFT PO ; Start 12/01/16 at 08:00 Heparin Sodium (Porcine) (Heparin Sodium) 10,000 unit 1X ONCE IV Last administered on 11/30/16 18:20; Start 11/30/16 at 17:45; Stop 11/30/16 at 17:46 ; Status DC Heparin Sodium/ Dextrose 500 ml @ 0 mls/hr CONT PRN IV SEE I/O RECORD Last administered on 12/01/16 02:43; Start 11/30/16 at 17:45 Heparin Sodium (Porcine) (Heparin Sodium) 5,500 unit PRN Q6HRS PRN IV FOR UFH LEVEL LESS THAN 0.2; Start 11/30/16 at 17:45 Heparin Sodium (Porcine) (Heparin Sodium) 2,750 unit PRN Q6HRS PRN IV FOR UFH LEVEL 0.2 - 0.29; Start 11/30/16 at 17:45 Ondansetron HCl (Zofran) 4 mg PRN Q8HRS PRN IV NAUSEA/VOMITING; Start 11/30/16 at 18:00; Stop 12/01/16 at 17:59 Fentanyl Citrate (Fentanyl 2ml Vial) 50 mcg PRN Q1HR PRN IV PAIN; Start at 18:00; Stop 11/30/16 at 20:05; Status DC Acetaminophen (Tylenol) 650 mg PRN Q4HRS PRN PO FEVER; Start 11/30/16 at 18:00 ; Stop 12/01/16 at 17:59 Nitroglycerin (Nitrostat) 0.4 mg PRN Q5MIN PRN SL CHEST PAIN; Start 11/30/16 at 18:00; Stop 12/01/16 at 17:59 Cyclobenzaprine HCl (Flexeril) 10 mg PRN TID PRN PO BREAKTHROUGH MUSCLE PAIN; Start 11/30/16 at 20:15 Acetaminophen/ Hydrocodone Bitart (Lortab 10/325) 1 tab PRN Q4HRS PRN PO PAIN Last administered on 12/01/16t 02:47; Start 11/30/16 at 20:15 Levothyroxine Sodium (Synthroid) 175 mcg DAILYAC PO ; Start 12/01/16 at 07:30 Tramadol HCl (Ultram) 50 mg PRN Q6HRS PRN PO PAIN; Start 11/30/16 at 20:15 Active Scripts Active Cyclobenzaprine Hcl 10 Mg Tablet 10 Mg PO TID PRN 30 Days Reported Tramadol Hcl 50 Mg Tablet 50 Mg PO Q6H PRN Lortab 10-325 mg Tablet (Hydrocodone/Acetaminophen) 1 Each Tablet 1 Tab PO PRN Q4HRS PRN Levothyroxine Sodium 200 Mcg Tablet 225 Mcg PO DAILYAC Levothyroxine Sodium 175 Mcg Tablet 175 Mcg PO DAILYAC Allergies Allergies: Coded Allergies: No Known Drug Allergies (Unverified , 11/08/13) ROS Review of System Review of Systems Review of Systems Constitutional: Denies fever or chills. [] Eyes: Denies change in visual acuity. [] HENT: Denies nasal congestion or sore throat. [] Respiratory: Worsening shortness of breath, nonproductive cough for the past several days. Cardiovascular: Denies chest pain, has unchanged chronic lymphedema. GI: Denies abdominal pain, nausea, vomiting, bloody stools or diarrhea. [] : Denies dysuria. [] Musculoskeletal: Denies back pain or joint pain. [] Integument: Denies rash. [] Neurologic: Denies headache, focal weakness or sensory changes. [] Endocrine: Denies polyuria or polydipsia. [] Lymphatic: Denies swollen glands. [] Psychiatric: Denies depression or anxiety. [] Physical Exam General: Alert, Oriented X3 HEENT: Atraumatic Lungs: Clear to auscultation Heart: Other (Irregular) Abdomen: Normal bowel sounds, Soft, No tenderness, No hepatosplenomegaly, No masses, Other (obese) Extremities: Other (lymphedema) Psych/Mental Status: Mental status NL, Mood NL Vitals VITALS Vital Signs Date Time Temp Pulse Resp B/P (MAP) Pulse Ox O2 Delivery O2 Flow Rate FiO2 12/01/16 07:00 97.8 84 22 103/77 (86) 92 Nasal Cannula 3.0 97.8 Labs Labs Laboratory Tests Test 11/30/16 13:35 11/30/16 14:25 11/30/16 19:10 11/30/16 19:30 O2 Saturation 95 % (92-99) Arterial Blood pH 7.57 (7.35-7.45) Arterial Blood pCO2 at Patient Temp 29 mmHg (35-46) Arterial Blood pO2 at Patient Temp 69 mmHg (65-108) Arterial Blood HCO3 26 mmol/L (21-28) Arterial Blood Base Excess 5 mmol/L (-3-3) Oxyhemoglobin 94.1 % Methemoglobin 0.3 % (0.0-1.9) Carbon Monoxide, Quantitative 0.2 % (0.0-1.9) FiO2 40 White Blood Count 8.8 x10^3/uL (4.0-11.0) Red Blood Count 4.67 x10^6/uL (4.30-5.70) Hemoglobin 15.1 g/dL (13.0-17.5) Hematocrit 45.5 % (39.0-53.0) Mean Corpuscular Volume 97 fL (79-100) Mean Corpuscular Hemoglobin 32 pg (25-35) Mean Corpuscular Hemoglobin Concent 33 g/dL (31-37) Red Cell Distribution Width 14.4 % (11.5-14.5) Platelet Count 182 x10^3/uL (140-400) Neutrophils (%) (Auto) 77 % (31-73) Lymphocytes (%) (Auto) 15 % (24-48) Monocytes (%) (Auto) 7 % (0-9) Eosinophils (%) (Auto) 1 % (0-3) Basophils (%) (Auto) 0 % (0-3) Neutrophils # (Auto) 6.8 x10^3uL (1.8-7.7) Lymphocytes # (Auto) 1.4 x10^3/uL (1.0-4.8) Monocytes # (Auto) 0.6 x10^3/uL (0.0-1.1) Eosinophils # (Auto) 0.1 x10^3/uL (0.0-0.7) Basophils # (Auto) 0.0 x10^3/uL (0.0-0.2) Prothrombin Time 14.5 SEC (11.7-14.0) Prothromb Time International Ratio 1.2 (0.8-1.1) Activated Partial Thromboplast Time 29 SEC (24-38) D-Dimer (Chela) 11.27 ug/mlFEU (0.00-0.50) Sodium Level 138 mmol/L (136-145) Potassium Level 3.5 mmol/L (3.5-5.1) Chloride Level 99 mmol/L (98-107) Carbon Dioxide Level 28 mmol/L (21-32) Anion Gap 11 (6-14) Blood Urea Nitrogen 28 mg/dL (8-26) Creatinine 1.4 mg/dL (0.7-1.3) Estimated GFR (Cockcroft-Gault) 50.9 BUN/Creatinine Ratio 20 (6-20) Glucose Level 169 mg/dL (70-99) Lactic Acid Level 2.3 mmol/L (0.4-2.0) 1.8 mmol/L (0.4-2.0) Calcium Level 9.2 mg/dL (8.5-10.1) Total Bilirubin 0.4 mg/dL (0.2-1.0) Aspartate Amino Transf (AST/SGOT) 25 U/L (15-37) Alanine Aminotransferase (ALT/SGPT) 23 U/L (16-63) Alkaline Phosphatase 47 U/L (46-116) Troponin I Quantitative 0.110 ng/mL (0.000-0.055) 0.188 ng/mL (0.000-0.055) AO-Vnz-L-Type Natriuretic Peptide 3286 pg/mL (0-124) Total Protein 6.8 g/dL (6.4-8.2) Albumin 3.0 g/dL (3.4-5.0) Albumin/Globulin Ratio 0.8 (1.0-1.7) Urine Color Yellow Urine Clarity Clear Urine pH 5.5 Urine Specific [place] 1.010 Urine Protein Negative mg/dL (NEG-TRACE) Urine Glucose (UA) Negative mg/dL (NEG) Urine Ketones (Stick) Negative mg/dL (NEG) Urine Blood Negative (NEG) Urine Nitrite Negative (NEG) Urine Bilirubin Negative (NEG) Urine Urobilinogen Dipstick 0.2 mg/dL (0.2 mg/dL) Urine Leukocyte Esterase Negative (NEG) Urine RBC 0 /HPF (0-2) Urine WBC Occ /HPF (0-4) Urine Squamous Epithelial Cells Occ /LPF Urine Bacteria 0 /HPF (0-FEW) Urine Hyaline Casts Occasional /HPF Urine Mucus Slight /LPF Test 11/30/16 23:05 12/01/16 00:30 Heparin Anti-Xa Act, Unfractionated 1.06 IU/mL (0.30-0.70) White Blood Count 9.1 x10^3/uL (4.0-11.0) Red Blood Count 4.69 x10^6/uL (4.30-5.70) Hemoglobin 15.3 g/dL (13.0-17.5) Hematocrit 45.6 % (39.0-53.0) Mean Corpuscular Volume 97 fL (79-100) Mean Corpuscular Hemoglobin 33 pg (25-35) Mean Corpuscular Hemoglobin Concent 34 g/dL (31-37) Red Cell Distribution Width 14.2 % (11.5-14.5) Platelet Count 188 x10^3/uL (140-400) Neutrophils (%) (Auto) 60 % (31-73) Lymphocytes (%) (Auto) 30 % (24-48) Monocytes (%) (Auto) 9 % (0-9) Eosinophils (%) (Auto) 1 % (0-3) Basophils (%) (Auto) 1 % (0-3) Neutrophils # (Auto) 5.4 x10^3uL (1.8-7.7) Lymphocytes # (Auto) 2.7 x10^3/uL (1.0-4.8) Monocytes # (Auto) 0.8 x10^3/uL (0.0-1.1) Eosinophils # (Auto) 0.1 x10^3/uL (0.0-0.7) Basophils # (Auto) 0.1 x10^3/uL (0.0-0.2) Sodium Level 139 mmol/L (136-145) Potassium Level 3.2 mmol/L (3.5-5.1) Chloride Level 98 mmol/L (98-107) Carbon Dioxide Level 32 mmol/L (21-32) Anion Gap 9 (6-14) Blood Urea Nitrogen 26 mg/dL (8-26) Creatinine 1.2 mg/dL (0.7-1.3) Estimated GFR (Cockcroft-Gault) 60.8 Glucose Level 129 mg/dL (70-99) Calcium Level 9.0 mg/dL (8.5-10.1) Troponin I Quantitative 0.106 ng/mL (0.000-0.055) Triglycerides Level 99 mg/dL (0-150) Cholesterol Level 185 mg/dL (0-200) LDL Cholesterol, Calculated 129 mg/dL (0-100) VLDL Cholesterol, Calculated 20 mg/dL (0-40) Non-HDL Cholesterol Calculated 149 mg/dL (0-129) HDL Cholesterol 36 mg/dL (40-60) Cholesterol/HDL Ratio 5.1 Laboratory Tests Test 11/30/16 13:35 11/30/16 14:25 11/30/16 19:10 11/30/16 19:30 O2 Saturation 95 % (92-99) Arterial Blood pH 7.57 (7.35-7.45) Arterial Blood pCO2 at Patient Temp 29 mmHg (35-46) Arterial Blood pO2 at Patient Temp 69 mmHg (65-108) Arterial Blood HCO3 26 mmol/L (21-28) Arterial Blood Base Excess 5 mmol/L (-3-3) Oxyhemoglobin 94.1 % Methemoglobin 0.3 % (0.0-1.9) Carbon Monoxide, Quantitative 0.2 % (0.0-1.9) FiO2 40 White Blood Count 8.8 x10^3/uL (4.0-11.0) Red Blood Count 4.67 x10^6/uL (4.30-5.70) Hemoglobin 15.1 g/dL (13.0-17.5) Hematocrit 45.5 % (39.0-53.0) Mean Corpuscular Volume 97 fL (79-100) Mean Corpuscular Hemoglobin 32 pg (25-35) Mean Corpuscular Hemoglobin Concent 33 g/dL (31-37) Red Cell Distribution Width 14.4 % (11.5-14.5) Platelet Count 182 x10^3/uL (140-400) Neutrophils (%) (Auto) 77 % (31-73) Lymphocytes (%) (Auto) 15 % (24-48) Monocytes (%) (Auto) 7 % (0-9) Eosinophils (%) (Auto) 1 % (0-3) Basophils (%) (Auto) 0 % (0-3) Neutrophils # (Auto) 6.8 x10^3uL (1.8-7.7) Lymphocytes # (Auto) 1.4 x10^3/uL (1.0-4.8) Monocytes # (Auto) 0.6 x10^3/uL (0.0-1.1) Eosinophils # (Auto) 0.1 x10^3/uL (0.0-0.7) Basophils # (Auto) 0.0 x10^3/uL (0.0-0.2) Prothrombin Time 14.5 SEC (11.7-14.0) Prothromb Time International Ratio 1.2 (0.8-1.1) Activated Partial Thromboplast Time 29 SEC (24-38) D-Dimer (Chela) 11.27 ug/mlFEU (0.00-0.50) Sodium Level 138 mmol/L (136-145) Potassium Level 3.5 mmol/L (3.5-5.1) Chloride Level 99 mmol/L (98-107) Carbon Dioxide Level 28 mmol/L (21-32) Anion Gap 11 (6-14) Blood Urea Nitrogen 28 mg/dL (8-26) Creatinine 1.4 mg/dL (0.7-1.3) Estimated GFR (Cockcroft-Gault) 50.9 BUN/Creatinine Ratio 20 (6-20) Glucose Level 169 mg/dL (70-99) Lactic Acid Level 2.3 mmol/L (0.4-2.0) 1.8 mmol/L (0.4-2.0) Calcium Level 9.2 mg/dL (8.5-10.1) Total Bilirubin 0.4 mg/dL (0.2-1.0) Aspartate Amino Transf (AST/SGOT) 25 U/L (15-37) Alanine Aminotransferase (ALT/SGPT) 23 U/L (16-63) Alkaline Phosphatase 47 U/L (46-116) Troponin I Quantitative 0.110 ng/mL (0.000-0.055) 0.188 ng/mL (0.000-0.055) FB-Omv-B-Type Natriuretic Peptide 3286 pg/mL (0-124) Total Protein 6.8 g/dL (6.4-8.2) Albumin 3.0 g/dL (3.4-5.0) Albumin/Globulin Ratio 0.8 (1.0-1.7) Urine Color Yellow Urine Clarity Clear Urine pH 5.5 Urine Specific [place] 1.010 Urine Protein Negative mg/dL (NEG-TRACE) Urine Glucose (UA) Negative mg/dL (NEG) Urine Ketones (Stick) Negative mg/dL (NEG) Urine Blood Negative (NEG) Urine Nitrite Negative (NEG) Urine Bilirubin Negative (NEG) Urine Urobilinogen Dipstick 0.2 mg/dL (0.2 mg/dL) Urine Leukocyte Esterase Negative (NEG) Urine RBC 0 /HPF (0-2) Urine WBC Occ /HPF (0-4) Urine Squamous Epithelial Cells Occ /LPF Urine Bacteria 0 /HPF (0-FEW) Urine Hyaline Casts Occasional /HPF Urine Mucus Slight /LPF Test 11/30/16 23:05 12/01/16 00:30 Heparin Anti-Xa Act, Unfractionated 1.06 IU/mL (0.30-0.70) White Blood Count 9.1 x10^3/uL (4.0-11.0) Red Blood Count 4.69 x10^6/uL (4.30-5.70) Hemoglobin 15.3 g/dL (13.0-17.5) Hematocrit 45.6 % (39.0-53.0) Mean Corpuscular Volume 97 fL (79-100) Mean Corpuscular Hemoglobin 33 pg (25-35) Mean Corpuscular Hemoglobin Concent 34 g/dL (31-37) Red Cell Distribution Width 14.2 % (11.5-14.5) Platelet Count 188 x10^3/uL (140-400) Neutrophils (%) (Auto) 60 % (31-73) Lymphocytes (%) (Auto) 30 % (24-48) Monocytes (%) (Auto) 9 % (0-9) Eosinophils (%) (Auto) 1 % (0-3) Basophils (%) (Auto) 1 % (0-3) Neutrophils # (Auto) 5.4 x10^3uL (1.8-7.7) Lymphocytes # (Auto) 2.7 x10^3/uL (1.0-4.8) Monocytes # (Auto) 0.8 x10^3/uL (0.0-1.1) Eosinophils # (Auto) 0.1 x10^3/uL (0.0-0.7) Basophils # (Auto) 0.1 x10^3/uL (0.0-0.2) Sodium Level 139 mmol/L (136-145) Potassium Level 3.2 mmol/L (3.5-5.1) Chloride Level 98 mmol/L (98-107) Carbon Dioxide Level 32 mmol/L (21-32) Anion Gap 9 (6-14) Blood Urea Nitrogen 26 mg/dL (8-26) Creatinine 1.2 mg/dL (0.7-1.3) Estimated GFR (Cockcroft-Gault) 60.8 Glucose Level 129 mg/dL (70-99) Calcium Level 9.0 mg/dL (8.5-10.1) Troponin I Quantitative 0.106 ng/mL (0.000-0.055) Triglycerides Level 99 mg/dL (0-150) Cholesterol Level 185 mg/dL (0-200) LDL Cholesterol, Calculated 129 mg/dL (0-100) VLDL Cholesterol, Calculated 20 mg/dL (0-40) Non-HDL Cholesterol Calculated 149 mg/dL (0-129) HDL Cholesterol 36 mg/dL (40-60) Cholesterol/HDL Ratio 5.1 Assessment/Plan Assessment/Plan 1. Acute hypoxic RF in a patient who is obese and had recent left rib sprain vs ? PE and URI, now presents with worsening hypoxic RF with markedly elevated D- Dimer. Highly suspect PE 2. Recent Acute Bronchitis 3. Recent left rib sprain/ suspect may had a PE and was mistaken as rib pain. 4. Morbid obesity, denies s/ of SKYE 5. A-fib PLAN. 1. Continue with empiric heparin for suspect PE until ruled out( patient has refused it this am) 2. Obtain CTA chest. I had to convince him that we need that test. 3. Dopplers negative 4. A-Fib per cardiology 5. Further recommendations to follow Addend: Pt continues to decline imaging study to r/o PE. Very difficult to treat and diagnose underlying cause for hypoxia. Cannot leave him on AC for unclear reason. D-Dimer can be non-specific.He also understands that he can if PE is not diagnosed and treated. d/w PCP. ABDI SMITH MD Dec 01, 2016 09:01
[2016-12-01] MEDS ORDERED: IOHEXOL 350 MG/ML 100 ML VIAL. IV ONE (09:30)
--- NOTE | 2016-12-01 10:39 | CARD ---
APPROVED REPORT EXAM: LIMITED Two-dimensional echocardiogram. Other Information Quality : Technically Limited Rhythm : Atrial FibrillationTechnically limited study due to body habitus. INDICATION hypoxia, elevated troponin level LEFT VENTRICLE The left ventricle is normal size. There is normal left ventricular wall thickness. The left ventricu lar systolic function is normal and the ejection fraction is within normal range. The Ejection Fracti on is 50-55%. Septal motion consistent with conduction abnormality. RIGHT VENTRICLE The right ventricle appears dilated. Systolic function appears grossly normal. ATRIA The left atrium size is normal. The right atrium appears dilated. GREAT VESSELS Not well visualized. PERICARDIAL EFFUSION There is no evidence of significant pericardial effusion. Critical Notification Critical Value: No <Conclusion> The left ventricular systolic function is normal and the ejection fraction is within normal range. Th e Ejection Fraction is 50-55%. The right ventricle appears dilated. Systolic function appears grossly normal. There is no evidence of significant pericardial effusion. Technically very difficult study due to morbid obesity.
--- NOTE | 2016-12-01 10:54 | PDOC ---
JF LARA [employer] 12/01/16 1053: CARDIO Progress Notes Date and Time Date of Service 12/01/16 Time of Evaluation 1015 Subjective Subjective: No Chest Pain, No Palpitations, No Dizziness, Other (c/o SOA) Comments: angry- wanting antibiotic for bronchitis so he can go home. Vitals Vitals Vital Signs Date Time Temp Pulse Resp B/P (MAP) Pulse Ox O2 Delivery O2 Flow Rate FiO2 12/01/16 07:00 97.8 84 22 103/77 (86) 92 Nasal Cannula 3.0 97.8 Weight Weight [ ] Input and Output Intake and Output Intake and Output 12/01/16 07:00 Intake Total 1379.94 ml Output Total 1075 ml Balance 304.94 ml Intake Oral 800 ml IV Total 579.94 ml Output Urine Total 1075 ml Laboratory Labs Laboratory Tests Test 11/30/16 13:35 11/30/16 14:25 11/30/16 19:10 11/30/16 19:30 O2 Saturation 95 % (92-99) Arterial Blood pH 7.57 (7.35-7.45) Arterial Blood pCO2 at Patient Temp 29 mmHg (35-46) Arterial Blood pO2 at Patient Temp 69 mmHg (65-108) Arterial Blood HCO3 26 mmol/L (21-28) Arterial Blood Base Excess 5 mmol/L (-3-3) Oxyhemoglobin 94.1 % Methemoglobin 0.3 % (0.0-1.9) Carbon Monoxide, Quantitative 0.2 % (0.0-1.9) FiO2 40 White Blood Count 8.8 x10^3/uL (4.0-11.0) Red Blood Count 4.67 x10^6/uL (4.30-5.70) Hemoglobin 15.1 g/dL (13.0-17.5) Hematocrit 45.5 % (39.0-53.0) Mean Corpuscular Volume 97 fL (79-100) Mean Corpuscular Hemoglobin 32 pg (25-35) Mean Corpuscular Hemoglobin Concent 33 g/dL (31-37) Red Cell Distribution Width 14.4 % (11.5-14.5) Platelet Count 182 x10^3/uL (140-400) Neutrophils (%) (Auto) 77 % (31-73) Lymphocytes (%) (Auto) 15 % (24-48) Monocytes (%) (Auto) 7 % (0-9) Eosinophils (%) (Auto) 1 % (0-3) Basophils (%) (Auto) 0 % (0-3) Neutrophils # (Auto) 6.8 x10^3uL (1.8-7.7) Lymphocytes # (Auto) 1.4 x10^3/uL (1.0-4.8) Monocytes # (Auto) 0.6 x10^3/uL (0.0-1.1) Eosinophils # (Auto) 0.1 x10^3/uL (0.0-0.7) Basophils # (Auto) 0.0 x10^3/uL (0.0-0.2) Prothrombin Time 14.5 SEC (11.7-14.0) Prothromb Time International Ratio 1.2 (0.8-1.1) Activated Partial Thromboplast Time 29 SEC (24-38) D-Dimer (Chela) 11.27 ug/mlFEU (0.00-0.50) Sodium Level 138 mmol/L (136-145) Potassium Level 3.5 mmol/L (3.5-5.1) Chloride Level 99 mmol/L (98-107) Carbon Dioxide Level 28 mmol/L (21-32) Anion Gap 11 (6-14) Blood Urea Nitrogen 28 mg/dL (8-26) Creatinine 1.4 mg/dL (0.7-1.3) Estimated GFR (Cockcroft-Gault) 50.9 BUN/Creatinine Ratio 20 (6-20) Glucose Level 169 mg/dL (70-99) Lactic Acid Level 2.3 mmol/L (0.4-2.0) 1.8 mmol/L (0.4-2.0) Calcium Level 9.2 mg/dL (8.5-10.1) Total Bilirubin 0.4 mg/dL (0.2-1.0) Aspartate Amino Transf (AST/SGOT) 25 U/L (15-37) Alanine Aminotransferase (ALT/SGPT) 23 U/L (16-63) Alkaline Phosphatase 47 U/L (46-116) Troponin I Quantitative 0.110 ng/mL (0.000-0.055) 0.188 ng/mL (0.000-0.055) LV-Ckr-L-Type Natriuretic Peptide 3286 pg/mL (0-124) Total Protein 6.8 g/dL (6.4-8.2) Albumin 3.0 g/dL (3.4-5.0) Albumin/Globulin Ratio 0.8 (1.0-1.7) Urine Color Yellow Urine Clarity Clear Urine pH 5.5 Urine Specific [place] 1.010 Urine Protein Negative mg/dL (NEG-TRACE) Urine Glucose (UA) Negative mg/dL (NEG) Urine Ketones (Stick) Negative mg/dL (NEG) Urine Blood Negative (NEG) Urine Nitrite Negative (NEG) Urine Bilirubin Negative (NEG) Urine Urobilinogen Dipstick 0.2 mg/dL (0.2 mg/dL) Urine Leukocyte Esterase Negative (NEG) Urine RBC 0 /HPF (0-2) Urine WBC Occ /HPF (0-4) Urine Squamous Epithelial Cells Occ /LPF Urine Bacteria 0 /HPF (0-FEW) Urine Hyaline Casts Occasional /HPF Urine Mucus Slight /LPF Test 11/30/16 23:05 12/01/16 00:30 Heparin Anti-Xa Act, Unfractionated 1.06 IU/mL (0.30-0.70) White Blood Count 9.1 x10^3/uL (4.0-11.0) Red Blood Count 4.69 x10^6/uL (4.30-5.70) Hemoglobin 15.3 g/dL (13.0-17.5) Hematocrit 45.6 % (39.0-53.0) Mean Corpuscular Volume 97 fL (79-100) Mean Corpuscular Hemoglobin 33 pg (25-35) Mean Corpuscular Hemoglobin Concent 34 g/dL (31-37) Red Cell Distribution Width 14.2 % (11.5-14.5) Platelet Count 188 x10^3/uL (140-400) Neutrophils (%) (Auto) 60 % (31-73) Lymphocytes (%) (Auto) 30 % (24-48) Monocytes (%) (Auto) 9 % (0-9) Eosinophils (%) (Auto) 1 % (0-3) Basophils (%) (Auto) 1 % (0-3) Neutrophils # (Auto) 5.4 x10^3uL (1.8-7.7) Lymphocytes # (Auto) 2.7 x10^3/uL (1.0-4.8) Monocytes # (Auto) 0.8 x10^3/uL (0.0-1.1) Eosinophils # (Auto) 0.1 x10^3/uL (0.0-0.7) Basophils # (Auto) 0.1 x10^3/uL (0.0-0.2) Sodium Level 139 mmol/L (136-145) Potassium Level 3.2 mmol/L (3.5-5.1) Chloride Level 98 mmol/L (98-107) Carbon Dioxide Level 32 mmol/L (21-32) Anion Gap 9 (6-14) Blood Urea Nitrogen 26 mg/dL (8-26) Creatinine 1.2 mg/dL (0.7-1.3) Estimated GFR (Cockcroft-Gault) 60.8 Glucose Level 129 mg/dL (70-99) Calcium Level 9.0 mg/dL (8.5-10.1) Troponin I Quantitative 0.106 ng/mL (0.000-0.055) Triglycerides Level 99 mg/dL (0-150) Cholesterol Level 185 mg/dL (0-200) LDL Cholesterol, Calculated 129 mg/dL (0-100) VLDL Cholesterol, Calculated 20 mg/dL (0-40) Non-HDL Cholesterol Calculated 149 mg/dL (0-129) HDL Cholesterol 36 mg/dL (40-60) Cholesterol/HDL Ratio 5.1 Physical Exam HEENT: Neck Supple W Full Motion Chest: Symmetric LUNGS: Other (diminished bases) Heart: RRR, irregularly irregular (tele: AFIB) Abdomen: Other (obese ) Extremities: Other (4+ bilateral LE edema ) Neurology: alert, oriented, follow commands Assessment Assessment 1. Acute hypoxic respiratory failure; ?PE 2. Acute and chronic diastolic heart failure 3. Mild troponin elevation; peal 0.188 4. Chronic AFIB 5. FIGUEROA 6. Elevated d-dimer 7. Hypothyroidism 8. Chronic LE lymphedema Recommendations Continue aggressive diuresis as patient will allow- refusing multiple therapies. Refusing CTA. On heparin due to PE concern Recommend long-term OAC- d/w patient, not interested at this time. Discussed possibility of cardioversion- patient declined any further cardiac workup/treatment as he has had AFIB for 10 years and is doing "just fine" Supportive care ROGER CURRIE MD 12/01/16 2139: CARDIO Progress Notes Plan Plan Pt. seen and examined. Agree with above PL SQL DEVELOPER note. No acute events overnight. Good diuresis. Feels better. Getting abx. He is in denial of his cardiac issues. Continue diuresis. He agrees to lasix. Will follow along. JF LARA APRN Dec 01, 2016 10:53 ROGER CURRIE MD Dec 01, 2016 21:39
[2016-12-01 11:00] VITALS: BP 118/72
[2016-12-01] MEDS ORDERED: METO2.5T PO (11:23)
[2016-12-01] MEDS: FUROSEMIDE 40 MG/4 ML VIAL. IVP SCH ×2 (12:12→16:51)
[2016-12-01] MEDS: ASPIRIN ENTERIC COATED 325 MG TABLET.DR. PO SCH (12:12)
[2016-12-01] MEDS: LEVOTHYROXINE 175 MCG TABLET PO SCH (12:12)
--- NOTE | 2016-12-01 13:40 | PDOC ---
PROGRESS NOTES Chief Complaint Chief Complaint SOB ASSESSMENT AND PLAN: 1. acute respir failure: stable; on suppl O2. etiology is unclear and pt is declining appropriate W/U: 2. ? PE: high suspicion with D/Dimer and focal pain of "dislocated rib" and severe hypoxia. empirically on IV heparin now, but he declines V/Q scan or CTA 3. CHF: mild diastolic dysfxn on technically difficult study due to body habitus. 4. NSTEMI: mild troponin leak prob 2/2 above. according to pt, his "heart is fine". declines further W/U 5. Afib: chronic. declines cardioversion as d/w cardiology 6. OAC: has been on warferin in the past, but stopped himself (causes him to feel unwell and weak). 8. Hyperlipidemia: mild abn. statin would be useful, but with him declining life-saving meds and interventions... 9. Chronic lymphedema: declines lymphedema treatment or wraps 10. Morbid obesity: BMI 57.5 11. Dispo: He is very high risk for having had a PE and thus further thromboembolic dz. He is tolerating IV heparin for now. will try and convince him to have scan done RONALD; however, negative scan after 24h of anticoagulation may be meaningless. Discussed the issue with him, and he is willing to take oral OAC for suspected PE...as long as he gets his cipro for his "tracheal bronchitis", which had been dx.ed empirically by his PCP last . plan for D/C on eliquis in AM History of Present Illness History of Present Illness no c/o, but is tired of having to "argue with every single doctor who came in this morning" Vitals Vitals Vital Signs Date Time Temp Pulse Resp B/P (MAP) Pulse Ox O2 Delivery O2 Flow Rate FiO2 12/01/16 11:00 97.4 97 20 118/72 (87) 94 Nasal Cannula 3.0 97.4 Physical Exam General: Alert, Oriented X3 Heart: Other (Irregular) Lungs: Clear Abdomen: Normal bowel sounds, Soft, No tenderness, No hepatosplenomegaly, No masses, Other (obese) Extremities: Other (lymphedema) Skin: No rashes Labs LABS Laboratory Tests Test 11/30/16 13:35 11/30/16 14:25 11/30/16 19:10 11/30/16 19:30 O2 Saturation 95 % (92-99) Arterial Blood pH 7.57 (7.35-7.45) Arterial Blood pCO2 at Patient Temp 29 mmHg (35-46) Arterial Blood pO2 at Patient Temp 69 mmHg (65-108) Arterial Blood HCO3 26 mmol/L (21-28) Arterial Blood Base Excess 5 mmol/L (-3-3) Oxyhemoglobin 94.1 % Methemoglobin 0.3 % (0.0-1.9) Carbon Monoxide, Quantitative 0.2 % (0.0-1.9) FiO2 40 White Blood Count 8.8 x10^3/uL (4.0-11.0) Red Blood Count 4.67 x10^6/uL (4.30-5.70) Hemoglobin 15.1 g/dL (13.0-17.5) Hematocrit 45.5 % (39.0-53.0) Mean Corpuscular Volume 97 fL (79-100) Mean Corpuscular Hemoglobin 32 pg (25-35) Mean Corpuscular Hemoglobin Concent 33 g/dL (31-37) Red Cell Distribution Width 14.4 % (11.5-14.5) Platelet Count 182 x10^3/uL (140-400) Neutrophils (%) (Auto) 77 % (31-73) Lymphocytes (%) (Auto) 15 % (24-48) Monocytes (%) (Auto) 7 % (0-9) Eosinophils (%) (Auto) 1 % (0-3) Basophils (%) (Auto) 0 % (0-3) Neutrophils # (Auto) 6.8 x10^3uL (1.8-7.7) Lymphocytes # (Auto) 1.4 x10^3/uL (1.0-4.8) Monocytes # (Auto) 0.6 x10^3/uL (0.0-1.1) Eosinophils # (Auto) 0.1 x10^3/uL (0.0-0.7) Basophils # (Auto) 0.0 x10^3/uL (0.0-0.2) Prothrombin Time 14.5 SEC (11.7-14.0) Prothromb Time International Ratio 1.2 (0.8-1.1) Activated Partial Thromboplast Time 29 SEC (24-38) D-Dimer (Chela) 11.27 ug/mlFEU (0.00-0.50) Sodium Level 138 mmol/L (136-145) Potassium Level 3.5 mmol/L (3.5-5.1) Chloride Level 99 mmol/L (98-107) Carbon Dioxide Level 28 mmol/L (21-32) Anion Gap 11 (6-14) Blood Urea Nitrogen 28 mg/dL (8-26) Creatinine 1.4 mg/dL (0.7-1.3) Estimated GFR (Cockcroft-Gault) 50.9 BUN/Creatinine Ratio 20 (6-20) Glucose Level 169 mg/dL (70-99) Lactic Acid Level 2.3 mmol/L (0.4-2.0) 1.8 mmol/L (0.4-2.0) Calcium Level 9.2 mg/dL (8.5-10.1) Total Bilirubin 0.4 mg/dL (0.2-1.0) Aspartate Amino Transf (AST/SGOT) 25 U/L (15-37) Alanine Aminotransferase (ALT/SGPT) 23 U/L (16-63) Alkaline Phosphatase 47 U/L (46-116) Troponin I Quantitative 0.110 ng/mL (0.000-0.055) 0.188 ng/mL (0.000-0.055) ZE-Ooz-J-Type Natriuretic Peptide 3286 pg/mL (0-124) Total Protein 6.8 g/dL (6.4-8.2) Albumin 3.0 g/dL (3.4-5.0) Albumin/Globulin Ratio 0.8 (1.0-1.7) Urine Color Yellow Urine Clarity Clear Urine pH 5.5 Urine Specific [place] 1.010 Urine Protein Negative mg/dL (NEG-TRACE) Urine Glucose (UA) Negative mg/dL (NEG) Urine Ketones (Stick) Negative mg/dL (NEG) Urine Blood Negative (NEG) Urine Nitrite Negative (NEG) Urine Bilirubin Negative (NEG) Urine Urobilinogen Dipstick 0.2 mg/dL (0.2 mg/dL) Urine Leukocyte Esterase Negative (NEG) Urine RBC 0 /HPF (0-2) Urine WBC Occ /HPF (0-4) Urine Squamous Epithelial Cells Occ /LPF Urine Bacteria 0 /HPF (0-FEW) Urine Hyaline Casts Occasional /HPF Urine Mucus Slight /LPF Test 11/30/16 23:05 12/01/16 00:30 Heparin Anti-Xa Act, Unfractionated 1.06 IU/mL (0.30-0.70) White Blood Count 9.1 x10^3/uL (4.0-11.0) Red Blood Count 4.69 x10^6/uL (4.30-5.70) Hemoglobin 15.3 g/dL (13.0-17.5) Hematocrit 45.6 % (39.0-53.0) Mean Corpuscular Volume 97 fL (79-100) Mean Corpuscular Hemoglobin 33 pg (25-35) Mean Corpuscular Hemoglobin Concent 34 g/dL (31-37) Red Cell Distribution Width 14.2 % (11.5-14.5) Platelet Count 188 x10^3/uL (140-400) Neutrophils (%) (Auto) 60 % (31-73) Lymphocytes (%) (Auto) 30 % (24-48) Monocytes (%) (Auto) 9 % (0-9) Eosinophils (%) (Auto) 1 % (0-3) Basophils (%) (Auto) 1 % (0-3) Neutrophils # (Auto) 5.4 x10^3uL (1.8-7.7) Lymphocytes # (Auto) 2.7 x10^3/uL (1.0-4.8) Monocytes # (Auto) 0.8 x10^3/uL (0.0-1.1) Eosinophils # (Auto) 0.1 x10^3/uL (0.0-0.7) Basophils # (Auto) 0.1 x10^3/uL (0.0-0.2) Sodium Level 139 mmol/L (136-145) Potassium Level 3.2 mmol/L (3.5-5.1) Chloride Level 98 mmol/L (98-107) Carbon Dioxide Level 32 mmol/L (21-32) Anion Gap 9 (6-14) Blood Urea Nitrogen 26 mg/dL (8-26) Creatinine 1.2 mg/dL (0.7-1.3) Estimated GFR (Cockcroft-Gault) 60.8 Glucose Level 129 mg/dL (70-99) Calcium Level 9.0 mg/dL (8.5-10.1) Troponin I Quantitative 0.106 ng/mL (0.000-0.055) Triglycerides Level 99 mg/dL (0-150) Cholesterol Level 185 mg/dL (0-200) LDL Cholesterol, Calculated 129 mg/dL (0-100) VLDL Cholesterol, Calculated 20 mg/dL (0-40) Non-HDL Cholesterol Calculated 149 mg/dL (0-129) HDL Cholesterol 36 mg/dL (40-60) Cholesterol/HDL Ratio 5.1 WAQAR IBANEZ MD Dec 01, 2016 13:40
[2016-12-01 15:00] VITALS: BP 109/75
[2016-12-01 19:21] VITALS: BP 96/66
[2016-12-01 23:07] VITALS: BP 125/72
[2016-12-02] MEDS: HEPARIN 25,000UTS/500ML PREMIX 500 ML IV PRN ×3 (02:12→23:51)
[2016-12-02 02:43] VITALS: BP 113/85
[2016-12-02 07:00] VITALS: BP 115/79
[2016-12-02] MEDS: FUROSEMIDE 40 MG/4 ML VIAL. IVP SCH ×2 (08:51→16:30)
[2016-12-02] MEDS: ASPIRIN ENTERIC COATED 325 MG TABLET.DR. PO SCH (08:52)
[2016-12-02] MEDS: HYDROcodone/APAP 10/325 1 TAB TABLET PO PRN ×2 (08:52→21:34)
[2016-12-02] MEDS: LEVOTHYROXINE 175 MCG TABLET PO SCH (08:52)
[2016-12-02] MEDS ORDERED: POTASSIUM CHLORIDE 20 MEQ TABLET.ER. PO SCH (10:00)
[2016-12-02 11:00] VITALS: BP 125/70
--- NOTE | 2016-12-02 11:55 | PDOC ---
PULMONARY PROGRESS NOTES Subjective feels better Vitals Vital Signs Date Time Temp Pulse Resp B/P (MAP) Pulse Ox O2 Delivery O2 Flow Rate FiO2 12/02/16 09:50 20 96 Room Air 3.0 12/02/16 07:00 97.4 105 115/79 (91) 97.4 General: Alert, No acute distress Lungs: Clear Cardiovascular: S1 Abdomen: Soft, Other (obese) Neuro Exam: Alert Extremities: Other (lymphedema) Skin: Warm Labs Laboratory Tests Test 11/30/16 13:35 11/30/16 14:25 11/30/16 19:10 11/30/16 19:30 O2 Saturation 95 % (92-99) Arterial Blood pH 7.57 (7.35-7.45) Arterial Blood pCO2 at Patient Temp 29 mmHg (35-46) Arterial Blood pO2 at Patient Temp 69 mmHg (65-108) Arterial Blood HCO3 26 mmol/L (21-28) Arterial Blood Base Excess 5 mmol/L (-3-3) Oxyhemoglobin 94.1 % Methemoglobin 0.3 % (0.0-1.9) Carbon Monoxide, Quantitative 0.2 % (0.0-1.9) FiO2 40 White Blood Count 8.8 x10^3/uL (4.0-11.0) Red Blood Count 4.67 x10^6/uL (4.30-5.70) Hemoglobin 15.1 g/dL (13.0-17.5) Hematocrit 45.5 % (39.0-53.0) Mean Corpuscular Volume 97 fL (79-100) Mean Corpuscular Hemoglobin 32 pg (25-35) Mean Corpuscular Hemoglobin Concent 33 g/dL (31-37) Red Cell Distribution Width 14.4 % (11.5-14.5) Platelet Count 182 x10^3/uL (140-400) Neutrophils (%) (Auto) 77 % (31-73) Lymphocytes (%) (Auto) 15 % (24-48) Monocytes (%) (Auto) 7 % (0-9) Eosinophils (%) (Auto) 1 % (0-3) Basophils (%) (Auto) 0 % (0-3) Neutrophils # (Auto) 6.8 x10^3uL (1.8-7.7) Lymphocytes # (Auto) 1.4 x10^3/uL (1.0-4.8) Monocytes # (Auto) 0.6 x10^3/uL (0.0-1.1) Eosinophils # (Auto) 0.1 x10^3/uL (0.0-0.7) Basophils # (Auto) 0.0 x10^3/uL (0.0-0.2) Prothrombin Time 14.5 SEC (11.7-14.0) Prothromb Time International Ratio 1.2 (0.8-1.1) Activated Partial Thromboplast Time 29 SEC (24-38) D-Dimer (Chela) 11.27 ug/mlFEU (0.00-0.50) Sodium Level 138 mmol/L (136-145) Potassium Level 3.5 mmol/L (3.5-5.1) Chloride Level 99 mmol/L (98-107) Carbon Dioxide Level 28 mmol/L (21-32) Anion Gap 11 (6-14) Blood Urea Nitrogen 28 mg/dL (8-26) Creatinine 1.4 mg/dL (0.7-1.3) Estimated GFR (Cockcroft-Gault) 50.9 BUN/Creatinine Ratio 20 (6-20) Glucose Level 169 mg/dL (70-99) Lactic Acid Level 2.3 mmol/L (0.4-2.0) 1.8 mmol/L (0.4-2.0) Calcium Level 9.2 mg/dL (8.5-10.1) Total Bilirubin 0.4 mg/dL (0.2-1.0) Aspartate Amino Transf (AST/SGOT) 25 U/L (15-37) Alanine Aminotransferase (ALT/SGPT) 23 U/L (16-63) Alkaline Phosphatase 47 U/L (46-116) Troponin I Quantitative 0.110 ng/mL (0.000-0.055) 0.188 ng/mL (0.000-0.055) OT-Qrw-G-Type Natriuretic Peptide 3286 pg/mL (0-124) Total Protein 6.8 g/dL (6.4-8.2) Albumin 3.0 g/dL (3.4-5.0) Albumin/Globulin Ratio 0.8 (1.0-1.7) Urine Color Yellow Urine Clarity Clear Urine pH 5.5 Urine Specific [place] 1.010 Urine Protein Negative mg/dL (NEG-TRACE) Urine Glucose (UA) Negative mg/dL (NEG) Urine Ketones (Stick) Negative mg/dL (NEG) Urine Blood Negative (NEG) Urine Nitrite Negative (NEG) Urine Bilirubin Negative (NEG) Urine Urobilinogen Dipstick 0.2 mg/dL (0.2 mg/dL) Urine Leukocyte Esterase Negative (NEG) Urine RBC 0 /HPF (0-2) Urine WBC Occ /HPF (0-4) Urine Squamous Epithelial Cells Occ /LPF Urine Bacteria 0 /HPF (0-FEW) Urine Hyaline Casts Occasional /HPF Urine Mucus Slight /LPF Test 11/30/16 23:05 12/01/16 00:30 12/01/16 14:15 12/01/16 21:00 Heparin Anti-Xa Act, Unfractionated 1.06 IU/mL (0.30-0.70) 0.36 IU/mL (0.30-0.70) 0.36 IU/mL (0.30-0.70) White Blood Count 9.1 x10^3/uL (4.0-11.0) Red Blood Count 4.69 x10^6/uL (4.30-5.70) Hemoglobin 15.3 g/dL (13.0-17.5) Hematocrit 45.6 % (39.0-53.0) Mean Corpuscular Volume 97 fL (79-100) Mean Corpuscular Hemoglobin 33 pg (25-35) Mean Corpuscular Hemoglobin Concent 34 g/dL (31-37) Red Cell Distribution Width 14.2 % (11.5-14.5) Platelet Count 188 x10^3/uL (140-400) Neutrophils (%) (Auto) 60 % (31-73) Lymphocytes (%) (Auto) 30 % (24-48) Monocytes (%) (Auto) 9 % (0-9) Eosinophils (%) (Auto) 1 % (0-3) Basophils (%) (Auto) 1 % (0-3) Neutrophils # (Auto) 5.4 x10^3uL (1.8-7.7) Lymphocytes # (Auto) 2.7 x10^3/uL (1.0-4.8) Monocytes # (Auto) 0.8 x10^3/uL (0.0-1.1) Eosinophils # (Auto) 0.1 x10^3/uL (0.0-0.7) Basophils # (Auto) 0.1 x10^3/uL (0.0-0.2) Sodium Level 139 mmol/L (136-145) Potassium Level 3.2 mmol/L (3.5-5.1) Chloride Level 98 mmol/L (98-107) Carbon Dioxide Level 32 mmol/L (21-32) Anion Gap 9 (6-14) Blood Urea Nitrogen 26 mg/dL (8-26) Creatinine 1.2 mg/dL (0.7-1.3) Estimated GFR (Cockcroft-Gault) 60.8 Glucose Level 129 mg/dL (70-99) Calcium Level 9.0 mg/dL (8.5-10.1) Troponin I Quantitative 0.106 ng/mL (0.000-0.055) Triglycerides Level 99 mg/dL (0-150) Cholesterol Level 185 mg/dL (0-200) LDL Cholesterol, Calculated 129 mg/dL (0-100) VLDL Cholesterol, Calculated 20 mg/dL (0-40) Non-HDL Cholesterol Calculated 149 mg/dL (0-129) HDL Cholesterol 36 mg/dL (40-60) Cholesterol/HDL Ratio 5.1 Test 12/02/16 05:00 Heparin Anti-Xa Act, Unfractionated 0.52 IU/mL (0.30-0.70) Laboratory Tests Test 12/01/16 14:15 12/01/16 21:00 12/02/16 05:00 Heparin Anti-Xa Act, Unfractionated 0.36 IU/mL (0.30-0.70) 0.36 IU/mL (0.30-0.70) 0.52 IU/mL (0.30-0.70) Medications Active Scripts Medications Dose Route/Sig Max Daily Dose Days Date Category Metolazone 2.5 Mg Tablet 2.5 Mg PO QODAY 12/01/16 Reported Cyclobenzaprine Hcl 10 Mg Tablet 10 Mg PO TID PRN 30 11/09/13 Rx Tramadol Hcl 50 Mg Tablet 50 Mg PO Q6H PRN 11/09/13 Reported Lortab 10-325 mg Tablet (Hydrocodone/Acetaminophen) 1 Each Tablet 1 Tab PO PRN Q4HRS PRN 11/09/13 Reported Levothyroxine Sodium 200 Mcg Tablet 225 Mcg PO DAILYAC 11/09/13 Reported Levothyroxine Sodium 175 Mcg Tablet 175 Mcg PO DAILYAC 11/09/13 Reported Impression . 1. Acute hypoxic RF in a patient who is obese and had recent left rib sprain vs ? PE and URI, now presents with worsening hypoxic RF with markedly elevated D- Dimer. Highly suspect PE 2. Recent Acute Bronchitis 3. Recent left rib sprain/ suspect may had a PE and was mistaken as rib pain. 4. Morbid obesity, denies s/s of SKYE 5. A-fib, previously stopped coumadin due to SE Plan . 1. Continue with empiric heparin for suspect PE until ruled out( patient has refused it this am) 2. Obtain CTA chest. I had to convince him again with a long discussion of the need for CTA chest. d/w as well 3. Dopplers negative 4. A-Fib per cardiology 5. Further recommendations to follow after ct chest 6. d/w as well. she agrees for CTA ABDI SMITH MD Dec 02, 2016 11:55
[2016-12-02] MEDS ORDERED: IOHEXOL 300 MG/ML 75 ML VIAL IV ONE (12:30)
--- NOTE | 2016-12-02 13:13 | PDOC ---
CARDIO Progress Notes Date and Time Date of Service 12/02/16 Time of Evaluation 1040 Subjective Subjective: No Chest Pain, No Palpitations, No Dizziness, Other (more cooperative/pleasant today. concerned; wants to know if he has PE) Vitals Vitals Vital Signs Date Time Temp Pulse Resp B/P (MAP) Pulse Ox O2 Delivery O2 Flow Rate FiO2 12/02/16 11:00 98.2 103 17 125/70 (88) 94 Nasal Cannula 3.0 98.2 Weight Weight [ ] Input and Output Intake and Output Intake and Output 12/02/16 07:00 Intake Total 1910 ml Output Total 2325 ml Balance -415 ml Intake Oral 1360 ml IV Total 550 ml Output Urine Total 2325 ml Laboratory Labs Laboratory Tests Test 12/01/16 14:15 12/01/16 21:00 12/02/16 05:00 Heparin Anti-Xa Act, Unfractionated 0.36 IU/mL (0.30-0.70) 0.36 IU/mL (0.30-0.70) 0.52 IU/mL (0.30-0.70) Microbiology Micro Microbiology 11/30/16 Blood Culture - Preliminary, Resulted NO GROWTH AFTER 1 DAY Physical Exam HEENT: Neck Supple W Full Motion Chest: Symmetric LUNGS: Other (diminished bases) Heart: RRR, irregularly irregular (tele: AFIB) Abdomen: Other (obese ) Extremities: Other (4+ bilateral LE edema/lymphedema ) Neurology: alert, oriented, follow commands Assessment Assessment 1. Acute hypoxic respiratory failure; ?PE. per pulm 2. Acute and chronic diastolic heart failure; LVEF 50-55%. Improved with diuresis 3. Mild troponin elevation; peak 0.188 4. Chronic AFIB; presently heparinized. Rate intermittently elevated. 5. FIGUEROA- improved 6. Elevated d-dimer 7. Hypothyroidism 8. Chronic LE lymphedema 9. Dyslipidemia Recommendations Good UOP overnight; Continue diuresis Replace K, check Mg and replace as warranted Rate intermittent elevated. Will add low-dose BB for rate control On heparin due to concern/high risk for PE Given chronic AFIB and [id number] of 2, recommend OAC with Eliquis upon discharge from stroke prophylaxis Supportive care JF LARA APRN Dec 02, 2016 13:13
--- NOTE | 2016-12-02 13:22 | PDOC ---
PROGRESS NOTES Chief Complaint Chief Complaint SOB ASSESSMENT AND PLAN: 1. acute hypoxic resp failure: stable; on suppl O2. etiology is unclear and pt is declining appropriate W/U: 2. ? PE: high suspicion with D/Dimer and focal pain of "dislocated rib" and severe hypoxia. empirically on IV heparin now, but he declines V/Q scan or CTA 3. CHF: mild diastolic dysfxn on technically difficult study due to body habitus. 4. NSTEMI: mild troponin leak prob 2/2 above. according to pt, his "heart is fine". declines further W/U 5. Afib: chronic. declines cardioversion as d/w cardiology 6. OAC: has been on warferin in the past, but stopped himself (causes him to feel unwell and weak). 8. Hyperlipidemia: mild abn. statin would be useful, but with him declining life-saving meds and interventions... 9. Chronic lymphedema: declines lymphedema treatment or wraps 10. Morbid obesity: BMI 57.5 hypokalemia plan: fu with card, pulm will try CTA today to rule out PE on NC 3 L on heparin drip, need eliquis when dc for afib on lasix iv bid, add K po discussed with pt and at bedside. discussed with pulm. History of Present Illness History of Present Illness c/o more sob and chest pain, chest pain is pleuritic said cannot do CTA with sob lying down but ok to try if on mask, denies copd or smoking history Vitals Vitals Vital Signs Date Time Temp Pulse Resp B/P (MAP) Pulse Ox O2 Delivery O2 Flow Rate FiO2 12/02/16 11:00 98.2 103 17 125/70 (88) 94 Nasal Cannula 3.0 98.2 Physical Exam General: Alert, Oriented X3 Heart: Regular rate, Normal S1, Other (Irregular) Lungs: Clear Abdomen: Normal bowel sounds, Soft, No tenderness, No hepatosplenomegaly, No masses, Other (obese) Extremities: Other (lymphedema) Skin: No rashes Labs LABS Laboratory Tests Test 12/01/16 14:15 12/01/16 21:00 12/02/16 05:00 Heparin Anti-Xa Act, Unfractionated 0.36 IU/mL (0.30-0.70) 0.36 IU/mL (0.30-0.70) 0.52 IU/mL (0.30-0.70) Review of Systems Review of Systems no fever, chills, n/v Assessment and Plan Assessmemt and Plan Problems Medical Problems: (1) Congestive heart failure Status: Acute (2) Hypoxia Status: Acute Problems: Comment Review of Relevant I have reviewed the following items yuriy (where applicable) has been applied. Labs Laboratory Tests Test 11/30/16 13:35 11/30/16 14:25 11/30/16 19:10 11/30/16 19:30 O2 Saturation 95 % (92-99) Arterial Blood pH 7.57 (7.35-7.45) Arterial Blood pCO2 at Patient Temp 29 mmHg (35-46) Arterial Blood pO2 at Patient Temp 69 mmHg (65-108) Arterial Blood HCO3 26 mmol/L (21-28) Arterial Blood Base Excess 5 mmol/L (-3-3) Oxyhemoglobin 94.1 % Methemoglobin 0.3 % (0.0-1.9) Carbon Monoxide, Quantitative 0.2 % (0.0-1.9) FiO2 40 White Blood Count 8.8 x10^3/uL (4.0-11.0) Red Blood Count 4.67 x10^6/uL (4.30-5.70) Hemoglobin 15.1 g/dL (13.0-17.5) Hematocrit 45.5 % (39.0-53.0) Mean Corpuscular Volume 97 fL (79-100) Mean Corpuscular Hemoglobin 32 pg (25-35) Mean Corpuscular Hemoglobin Concent 33 g/dL (31-37) Red Cell Distribution Width 14.4 % (11.5-14.5) Platelet Count 182 x10^3/uL (140-400) Neutrophils (%) (Auto) 77 % (31-73) Lymphocytes (%) (Auto) 15 % (24-48) Monocytes (%) (Auto) 7 % (0-9) Eosinophils (%) (Auto) 1 % (0-3) Basophils (%) (Auto) 0 % (0-3) Neutrophils # (Auto) 6.8 x10^3uL (1.8-7.7) Lymphocytes # (Auto) 1.4 x10^3/uL (1.0-4.8) Monocytes # (Auto) 0.6 x10^3/uL (0.0-1.1) Eosinophils # (Auto) 0.1 x10^3/uL (0.0-0.7) Basophils # (Auto) 0.0 x10^3/uL (0.0-0.2) Prothrombin Time 14.5 SEC (11.7-14.0) Prothromb Time International Ratio 1.2 (0.8-1.1) Activated Partial Thromboplast Time 29 SEC (24-38) D-Dimer (Chela) 11.27 ug/mlFEU (0.00-0.50) Sodium Level 138 mmol/L (136-145) Potassium Level 3.5 mmol/L (3.5-5.1) Chloride Level 99 mmol/L (98-107) Carbon Dioxide Level 28 mmol/L (21-32) Anion Gap 11 (6-14) Blood Urea Nitrogen 28 mg/dL (8-26) Creatinine 1.4 mg/dL (0.7-1.3) Estimated GFR (Cockcroft-Gault) 50.9 BUN/Creatinine Ratio 20 (6-20) Glucose Level 169 mg/dL (70-99) Lactic Acid Level 2.3 mmol/L (0.4-2.0) 1.8 mmol/L (0.4-2.0) Calcium Level 9.2 mg/dL (8.5-10.1) Total Bilirubin 0.4 mg/dL (0.2-1.0) Aspartate Amino Transf (AST/SGOT) 25 U/L (15-37) Alanine Aminotransferase (ALT/SGPT) 23 U/L (16-63) Alkaline Phosphatase 47 U/L (46-116) Troponin I Quantitative 0.110 ng/mL (0.000-0.055) 0.188 ng/mL (0.000-0.055) BG-Baw-W-Type Natriuretic Peptide 3286 pg/mL (0-124) Total Protein 6.8 g/dL (6.4-8.2) Albumin 3.0 g/dL (3.4-5.0) Albumin/Globulin Ratio 0.8 (1.0-1.7) Urine Color Yellow Urine Clarity Clear Urine pH 5.5 Urine Specific [place] 1.010 Urine Protein Negative mg/dL (NEG-TRACE) Urine Glucose (UA) Negative mg/dL (NEG) Urine Ketones (Stick) Negative mg/dL (NEG) Urine Blood Negative (NEG) Urine Nitrite Negative (NEG) Urine Bilirubin Negative (NEG) Urine Urobilinogen Dipstick 0.2 mg/dL (0.2 mg/dL) Urine Leukocyte Esterase Negative (NEG) Urine RBC 0 /HPF (0-2) Urine WBC Occ /HPF (0-4) Urine Squamous Epithelial Cells Occ /LPF Urine Bacteria 0 /HPF (0-FEW) Urine Hyaline Casts Occasional /HPF Urine Mucus Slight /LPF Test 11/30/16 23:05 12/01/16 00:30 12/01/16 14:15 12/01/16 21:00 Heparin Anti-Xa Act, Unfractionated 1.06 IU/mL (0.30-0.70) 0.36 IU/mL (0.30-0.70) 0.36 IU/mL (0.30-0.70) White Blood Count 9.1 x10^3/uL (4.0-11.0) Red Blood Count 4.69 x10^6/uL (4.30-5.70) Hemoglobin 15.3 g/dL (13.0-17.5) Hematocrit 45.6 % (39.0-53.0) Mean Corpuscular Volume 97 fL (79-100) Mean Corpuscular Hemoglobin 33 pg (25-35) Mean Corpuscular Hemoglobin Concent 34 g/dL (31-37) Red Cell Distribution Width 14.2 % (11.5-14.5) Platelet Count 188 x10^3/uL (140-400) Neutrophils (%) (Auto) 60 % (31-73) Lymphocytes (%) (Auto) 30 % (24-48) Monocytes (%) (Auto) 9 % (0-9) Eosinophils (%) (Auto) 1 % (0-3) Basophils (%) (Auto) 1 % (0-3) Neutrophils # (Auto) 5.4 x10^3uL (1.8-7.7) Lymphocytes # (Auto) 2.7 x10^3/uL (1.0-4.8) Monocytes # (Auto) 0.8 x10^3/uL (0.0-1.1) Eosinophils # (Auto) 0.1 x10^3/uL (0.0-0.7) Basophils # (Auto) 0.1 x10^3/uL (0.0-0.2) Sodium Level 139 mmol/L (136-145) Potassium Level 3.2 mmol/L (3.5-5.1) Chloride Level 98 mmol/L (98-107) Carbon Dioxide Level 32 mmol/L (21-32) Anion Gap 9 (6-14) Blood Urea Nitrogen 26 mg/dL (8-26) Creatinine 1.2 mg/dL (0.7-1.3) Estimated GFR (Cockcroft-Gault) 60.8 Glucose Level 129 mg/dL (70-99) Calcium Level 9.0 mg/dL (8.5-10.1) Troponin I Quantitative 0.106 ng/mL (0.000-0.055) Triglycerides Level 99 mg/dL (0-150) Cholesterol Level 185 mg/dL (0-200) LDL Cholesterol, Calculated 129 mg/dL (0-100) VLDL Cholesterol, Calculated 20 mg/dL (0-40) Non-HDL Cholesterol Calculated 149 mg/dL (0-129) HDL Cholesterol 36 mg/dL (40-60) Cholesterol/HDL Ratio 5.1 Test 12/02/16 05:00 Heparin Anti-Xa Act, Unfractionated 0.52 IU/mL (0.30-0.70) Laboratory Tests Test 12/01/16 14:15 12/01/16 21:00 12/02/16 05:00 Heparin Anti-Xa Act, Unfractionated 0.36 IU/mL (0.30-0.70) 0.36 IU/mL (0.30-0.70) 0.52 IU/mL (0.30-0.70) Microbiology 11/30/16 Blood Culture - Preliminary, Resulted NO GROWTH AFTER 1 DAY Medications Current Medications Fentanyl Citrate (Fentanyl 2ml Vial) 25 mcg PRN Q15MIN PRN IV PAIN GREATER THAN 3/10; Start 11/30/16 at 14:15; Stop 11/30/16 at 20:05; Status DC Iohexol (Omnipaque 300 Mg/ml) 75 ml 1X ONCE IV ; Start 11/30/16 at 15:00; Stop 11/30/16 at 15:03; Status DC Info (Do NOT chart on this entry -- for MONITORING) 1 each PRN DAILY PRN MC SEE COMMENTS; Start 11/30/16 at 15:00; Stop 12/02/16 at 14:59 Furosemide (Lasix) 40 mg 1X ONCE IVP Last administered on 11/30/16 17:39; Start 11/30/16 at 17:15; Stop 11/30/16 at 17:16; Status DC Sulfur Hexafluoride Microspheres (Lumason) 25 mg STK-MED ONCE IVP ; Start at 17:12; Stop 11/30/16 at 17:13; Status DC Aspirin (Georgette Aspirin) 325 mg 1X ONCE PO Last administered on 11/30/16 17:38 ; Start 11/30/16 at 17:15; Stop 11/30/16 at 17:17; Status DC Aspirin (Ecotrin) 325 mg DAILYWBKFT PO Last administered on 12/02/16 08:52; Start 12/01/16 at 08:00 Heparin Sodium (Porcine) (Heparin Sodium) 10,000 unit 1X ONCE IV Last administered on 11/30/16 18:20; Start 11/30/16 at 17:45; Stop 11/30/16 at 17:46 ; Status DC Heparin Sodium/ Dextrose 500 ml @ 0 mls/hr CONT PRN IV SEE I/O RECORD Last administered on 12/02/16 02:12; Start 11/30/16 at 17:45 Heparin Sodium (Porcine) (Heparin Sodium) 5,500 unit PRN Q6HRS PRN IV FOR UFH LEVEL LESS THAN 0.2; Start 11/30/16 at 17:45 Heparin Sodium (Porcine) (Heparin Sodium) 2,750 unit PRN Q6HRS PRN IV FOR UFH LEVEL 0.2 - 0.29; Start 11/30/16 at 17:45 Ondansetron HCl (Zofran) 4 mg PRN Q8HRS PRN IV NAUSEA/VOMITING; Start 11/30/16 at 18:00; Stop 12/01/16 at 17:59; Status DC Fentanyl Citrate (Fentanyl 2ml Vial) 50 mcg PRN Q1HR PRN IV PAIN; Start at 18:00; Stop 11/30/16 at 20:05; Status DC Acetaminophen (Tylenol) 650 mg PRN Q4HRS PRN PO FEVER; Start 11/30/16 at 18:00 ; Stop 12/01/16 at 17:59; Status DC Nitroglycerin (Nitrostat) 0.4 mg PRN Q5MIN PRN SL CHEST PAIN; Start 11/30/16 at 18:00; Stop 12/01/16 at 17:59; Status DC Cyclobenzaprine HCl (Flexeril) 10 mg PRN TID PRN PO BREAKTHROUGH MUSCLE PAIN; Start 11/30/16 at 20:15 Acetaminophen/ Hydrocodone Bitart (Lortab 10/325) 1 tab PRN Q4HRS PRN PO PAIN Last administered on 12/02/16 08:52; Start 11/30/16 at 20:15 Levothyroxine Sodium (Synthroid) 175 mcg DAILYAC PO Last administered on 08:52; Start 12/01/16 at 07:30 Tramadol HCl (Ultram) 50 mg PRN Q6HRS PRN PO PAIN; Start 11/30/16 at 20:15 Ceftriaxone Sodium 1 gm/ Sodium Chloride 50 ml @ 100 mls/hr Q24H IV Last administered on 12/02/16 10:25; Start 12/01/16 at 09:00 Iohexol (Omnipaque 350 Mg/ml) 75 ml 1X ONCE IV ; Start 12/01/16 at 09:30; Stop 12/01/16 at 09:35; Status DC Furosemide (Lasix) 40 mg [id number] IVP Last administered on 12/02/16 08:51; Start 12/01/16 at 11:00 Potassium Chloride (Klor-Con) 20 meq DAILYWBKFT PO Last administered on 10:26; Start 12/02/16 at 10:00; Stop 12/02/16 at 13:16; Status DC Iohexol (Omnipaque 300 Mg/ml) 75 ml 1X ONCE IV ; Start 12/02/16 at 12:30; Stop 12/02/16 at 12:33; Status DC Metoprolol Tartrate (Lopressor) 25 mg BID PO ; Start 12/02/16 at 13:30 Potassium Chloride (Klor-Con) 20 meq BID PO ; Start 12/02/16 at 21:00; Status UNV Potassium Chloride (Klor-Con) 20 meq 1X ONCE PO ; Start 12/02/16 at 13:15; Stop 12/02/16 at 13:16; Status UNV Active Scripts Active Cyclobenzaprine Hcl 10 Mg Tablet 10 Mg PO TID PRN 30 Days Reported Metolazone 2.5 Mg Tablet 2.5 Mg PO QODAY Tramadol Hcl 50 Mg Tablet 50 Mg PO Q6H PRN Lortab 10-325 mg Tablet (Hydrocodone/Acetaminophen) 1 Each Tablet 1 Tab PO PRN Q4HRS PRN Levothyroxine Sodium 200 Mcg Tablet 225 Mcg PO DAILYAC Levothyroxine Sodium 175 Mcg Tablet 175 Mcg PO DAILYAC Vitals/I & O Vital Sign - Last 24 Hours 12/01/16 12/01/16 12/01/16 12/01/16 15:00 19:21 19:45 21:31 Temp 97.5 98.0 97.5 98.0 Pulse 104 104 Resp 18 18 B/P (MAP) 109/75 (86) 96/66 (76) Pulse Ox 91 91 96 O2 Delivery Room Air Nasal Cannula Room Air Nasal Cannula O2 Flow Rate 3.0 3.0 12/01/16 12/02/16 12/02/16 12/02/16 23:07 02:43 07:00 08:00 Temp 98.8 97.6 97.4 98.8 97.6 97.4 Pulse 63 99 105 Resp B/P (MAP) 125/72 (89) 113/85 (94) 115/79 (91) Pulse Ox 94 95 92 O2 Delivery Room Air Nasal Cannula Nasal Cannula Room Air O2 Flow Rate 3.0 3.0 3.0 12/02/16 12/02/16 12/02/16 12/02/16 08:52 09:27 09:50 11:00 Temp 98.2 98.2 Pulse 103 Resp B/P (MAP) 125/70 (88) Pulse Ox 92 96 96 94 O2 Delivery Room Air Nasal Cannula Room Air Nasal Cannula O2 Flow Rate 3.0 3.0 3.0 3.0 Intake and Output 12/01/16 12/01/16 12/02/16 15:00 23:00 07:00 Intake Total 120 ml 1290 ml 500 ml Output Total 2325 ml Balance 120 ml -1035 ml 500 ml VERONICA MCELROY MD Dec 02, 2016 13:22
[2016-12-02] MEDS ORDERED: POTASSIUM CHLORIDE 20 MEQ TABLET.ER. PO ONE (13:30)
[2016-12-02] MEDS: METOPROLOL TART IMMED RELEASE 25 MG TABLET. PO SCH ×2 (13:44→21:33)
[2016-12-02 15:00] VITALS: BP 99/75
--- NOTE | 2016-12-02 16:08 | RAD ---
CTA of the chest with contrast, 12/02/2016: History: Shortness of breath, chest pain Multidetector CT imaging was performed following an IV bolus injection of iodinated contrast material. Multiplanar reconstructions were produced including coronal MIP images. There are extensive filling defects in the pulmonary arteries bilaterally. On the right there is clot in the lateral aspect of the right pulmonary artery extending into the lobar and segmental branches in all 3 lobes. Many of the right lower lobe filling defects appear to be occlusive. On the left there is also thrombus in the lateral aspect of the left pulmonary artery extending into lobar and segmental branches in the upper and lower lobes. There is mild calcific plaquing of the thoracic aorta without evidence of aneurysm. Moderate coronary artery calcifications are present. No mediastinal adenopathy is seen. There is a calcified granuloma in the left upper lobe anteriorly. There are mild streaky linear opacities in both lung bases compatible with atelectasis. No consolidating infiltrate is seen. No significant volume of pleural fluid is evident. IMPRESSION: 1. Extensive bilateral pulmonary emboli. 2. Moderate coronary artery calcifications. Note: This critical result was called to the patient's nurse on the floor 4:00 PM on 12/02/2016. PQRS Compliance Statement: One or more of the following individualized dose reduction techniques were utilized for this examination: 1. Automated exposure control 2. Adjustment of the mA and/or kV according to patient size 3. Use of iterative reconstruction technique
[2016-12-02] MEDS: POTASSIUM CHLORIDE 20 MEQ TABLET.ER. PO SCH (18:34)
[2016-12-02 19:45] VITALS: BP 121/63
[2016-12-02] MEDS: ATORVASTATIN CALCIUM 10 MG TABLET. PO SCH (21:32)
[2016-12-02 23:00] VITALS: BP 115/70
[2016-12-03 03:40] VITALS: BP 106/70
[2016-12-03 05:25] LABS: BASO # 0.1 x10^3/uL (0.0-0.2); BASO % 1 % (0-3); EOS % 2 % (0-3); HEMATOCRIT 45.8 % (39.0-53.0); HEMOGLOBIN 15.2 g/dL (13.0-17.5); LYMPH # 2.4 x10^3/uL (1.0-4.8); LYMPH % 26 % (24-48); MEAN CORPUSCULAR HEMOGLOBIN 32 pg (25-35); MEAN CORPUSCULAR HGB CONC 33 g/dL (31-37); MEAN CORPUSCULAR VOLUME 98 fL (79-100); MONO % 9 % (0-9); NEUT % 63 % (31-73); PLATELET COUNT 215 x10^3/uL (140-400); RED BLOOD COUNT 4.69 x10^6/uL (4.30-5.70); RED CELL DISTRIBUTION WIDTH 14.7 % (11.5-14.5); WHITE BLOOD COUNT 9.2 x10^3/uL (4.0-11.0)
[2016-12-03 05:57] LABS: CALCIUM 7.8 mg/dL (8.5-10.1); CREATININE 1.1 mg/dL (0.7-1.3); GFR 67.2
[2016-12-03 05:59] LABS: POTASSIUM 2.9 mmol/L (3.5-5.1)
[2016-12-03] MEDS ORDERED: POTASSIUM CHLORIDE 20 MEQ TABLET.ER. PO ONE (06:45)
[2016-12-03] MEDS: LEVOTHYROXINE 175 MCG TABLET PO SCH (06:48)
[2016-12-03 07:04] VITALS: BP 101/67
[2016-12-03] MEDS: HYDROcodone/APAP 10/325 1 TAB TABLET PO PRN ×2 (08:02→11:57)
[2016-12-03] MEDS: ASPIRIN ENTERIC COATED 325 MG TABLET.DR. PO SCH (08:03)
[2016-12-03] MEDS: METOPROLOL TART IMMED RELEASE 25 MG TABLET. PO SCH ×2 (08:04→20:41)
[2016-12-03] MEDS: POTASSIUM CHLORIDE 20 MEQ TABLET.ER. PO SCH ×2 (08:06→18:46)
[2016-12-03] MEDS: FUROSEMIDE 40 MG/4 ML VIAL. IVP SCH ×2 (08:41→15:00)
[2016-12-03 11:00] VITALS: BP 110/73
--- NOTE | 2016-12-03 11:30 | PDOC ---
PULMONARY PROGRESS NOTES Subjective C/O RIGHT CP CT CHEST C/W EXTENSIVE BILATERAL PE Vitals Vital Signs Date Time Temp Pulse Resp B/P (MAP) Pulse Ox O2 Delivery O2 Flow Rate FiO2 12/03/16 09:04 18 95 Nasal Cannula 3.0 12/03/16 08:04 86 101/67 12/03/16 07:04 98.2 98.2 General: Alert, No acute distress Lungs: Clear Cardiovascular: S1 Abdomen: Soft, Other (obese) Neuro Exam: Alert Extremities: Other (lymphedema) Skin: Warm Labs Laboratory Tests Test 12/01/16 14:15 12/01/16 21:00 12/02/16 05:00 12/03/16 05:04 Heparin Anti-Xa Act, Unfractionated 0.36 IU/mL (0.30-0.70) 0.36 IU/mL (0.30-0.70) 0.52 IU/mL (0.30-0.70) 0.39 IU/mL (0.30-0.70) Magnesium Level 2.1 mg/dL (1.8-2.4) White Blood Count 9.2 x10^3/uL (4.0-11.0) Red Blood Count 4.69 x10^6/uL (4.30-5.70) Hemoglobin 15.2 g/dL (13.0-17.5) Hematocrit 45.8 % (39.0-53.0) Mean Corpuscular Volume 98 fL (79-100) Mean Corpuscular Hemoglobin 32 pg (25-35) Mean Corpuscular Hemoglobin Concent 33 g/dL (31-37) Red Cell Distribution Width 14.7 % (11.5-14.5) Platelet Count 215 x10^3/uL (140-400) Neutrophils (%) (Auto) 63 % (31-73) Lymphocytes (%) (Auto) 26 % (24-48) Monocytes (%) (Auto) 9 % (0-9) Eosinophils (%) (Auto) 2 % (0-3) Basophils (%) (Auto) 1 % (0-3) Neutrophils # (Auto) 5.8 x10^3uL (1.8-7.7) Lymphocytes # (Auto) 2.4 x10^3/uL (1.0-4.8) Monocytes # (Auto) 0.8 x10^3/uL (0.0-1.1) Eosinophils # (Auto) 0.2 x10^3/uL (0.0-0.7) Basophils # (Auto) 0.1 x10^3/uL (0.0-0.2) Sodium Level 141 mmol/L (136-145) Potassium Level 2.9 mmol/L (3.5-5.1) Chloride Level 100 mmol/L (98-107) Carbon Dioxide Level 33 mmol/L (21-32) Anion Gap 8 (6-14) Blood Urea Nitrogen 25 mg/dL (8-26) Creatinine 1.1 mg/dL (0.7-1.3) Estimated GFR (Cockcroft-Gault) 67.2 Glucose Level 124 mg/dL (70-99) Calcium Level 7.8 mg/dL (8.5-10.1) Laboratory Tests Test 12/03/16 05:04 White Blood Count 9.2 x10^3/uL (4.0-11.0) Red Blood Count 4.69 x10^6/uL (4.30-5.70) Hemoglobin 15.2 g/dL (13.0-17.5) Hematocrit 45.8 % (39.0-53.0) Mean Corpuscular Volume 98 fL (79-100) Mean Corpuscular Hemoglobin 32 pg (25-35) Mean Corpuscular Hemoglobin Concent 33 g/dL (31-37) Red Cell Distribution Width 14.7 % (11.5-14.5) Platelet Count 215 x10^3/uL (140-400) Neutrophils (%) (Auto) 63 % (31-73) Lymphocytes (%) (Auto) 26 % (24-48) Monocytes (%) (Auto) 9 % (0-9) Eosinophils (%) (Auto) 2 % (0-3) Basophils (%) (Auto) 1 % (0-3) Neutrophils # (Auto) 5.8 x10^3uL (1.8-7.7) Lymphocytes # (Auto) 2.4 x10^3/uL (1.0-4.8) Monocytes # (Auto) 0.8 x10^3/uL (0.0-1.1) Eosinophils # (Auto) 0.2 x10^3/uL (0.0-0.7) Basophils # (Auto) 0.1 x10^3/uL (0.0-0.2) Heparin Anti-Xa Act, Unfractionated 0.39 IU/mL (0.30-0.70) Sodium Level 141 mmol/L (136-145) Potassium Level 2.9 mmol/L (3.5-5.1) Chloride Level 100 mmol/L (98-107) Carbon Dioxide Level 33 mmol/L (21-32) Anion Gap 8 (6-14) Blood Urea Nitrogen 25 mg/dL (8-26) Creatinine 1.1 mg/dL (0.7-1.3) Estimated GFR (Cockcroft-Gault) 67.2 Glucose Level 124 mg/dL (70-99) Calcium Level 7.8 mg/dL (8.5-10.1) Medications Active Scripts Medications Dose Route/Sig Max Daily Dose Days Date Category Metolazone 2.5 Mg Tablet 2.5 Mg PO QODAY 12/01/16 Reported Cyclobenzaprine Hcl 10 Mg Tablet 10 Mg PO TID PRN 30 11/09/13 Rx Tramadol Hcl 50 Mg Tablet 50 Mg PO Q6H PRN 11/09/13 Reported Lortab 10-325 mg Tablet (Hydrocodone/Acetaminophen) 1 Each Tablet 1 Tab PO PRN Q4HRS PRN 11/09/13 Reported Levothyroxine Sodium 200 Mcg Tablet 225 Mcg PO DAILYAC 11/09/13 Reported Levothyroxine Sodium 175 Mcg Tablet 175 Mcg PO DAILYAC 11/09/13 Reported Impression . 1. Acute hypoxic RF in a patient who is obese and had recent left rib sprain which was most likely due to PE , now presents with worsening hypoxic RF with markedly elevated D-Dimer. Highly suspect PE/ He declined CTA initially, CTA done yesterday confirmed bilateral extensive PE 2. Recent Acute Bronchitis 3. Recent left rib sprain/ suspect may had a PE and was mistaken as rib pain. He saw chiropracter 4. Morbid obesity, denies s/s of SKYE 5. A-fib, previously stopped coumadin due to SE 6. Needs to r/o occult malignancy and hypercoagulable state. Underlying morbid obesity is an independent risk factor for PE 7. Increase troponin, suspect due to RV ischemia Plan . 1. On heparin for PE . Hemodynamically stable. He has not tolerated coumadin before. Will start Eliquis and dc heparin later 2. Hypercoagulable panel 3. Dopplers negative 4. A-Fib per cardiology 5. ct abdomen/pelvis to r/o occult GI malignancy 6. d/w and patient in detail 7. 3-6 months of anticoagulation 8. f/u ct chest in 4-6 weeks ABDI SMITH MD Dec 03, 2016 11:30
[2016-12-03] MEDS ORDERED: ANTI-COAG MONITOR BY PHARMACY. MC PRN (11:45)
[2016-12-03] MEDS: predniSONE 20 MG TABLET PO SCH (11:53)
[2016-12-03] MEDS: APIXABAN 5 MG TABLET. PO SCH ×2 (11:53→20:37)
[2016-12-03] MEDS ORDERED: IOHEXOL 300 MG/ML 75 ML VIAL IV ONE (12:15)
[2016-12-03] MEDS ORDERED: CONTRAST GIVEN MC PRN (12:15)
[2016-12-03] MEDS ORDERED: IOHEXOL 240 MG/ML 50ML VIAL. PO ONE (12:15)
--- NOTE | 2016-12-03 14:14 | PDOC ---
PROGRESS NOTES Chief Complaint Chief Complaint SOB ASSESSMENT AND PLAN: 1. acute hypoxic resp failure: BL PE 2. bl PE: 3. CHF: mild diastolic dysfxn on technically difficult study due to body habitus. 4. NSTEMI: mild troponin leak prob 2/2 above. according to pt, his "heart is fine". declines further W/U 5. Afib: chronic. declines cardioversion as d/w cardiology 6. OAC: has been on warferin in the past, but stopped himself (causes him to feel unwell and weak). 8. Hyperlipidemia: mild abn. statin would be useful, but with him declining life-saving meds and interventions... 9. Chronic lymphedema: declines lymphedema treatment or wraps 10. Morbid obesity: BMI 57.5 hypokalemia plan: fu with carderika on NC 3 L CHAnged to eliquis as per puleris, off heparin drip on lasix iv bid, add K po discussed with pt and at bedside. discussed with pulm. PTOT pt looks very weak, may benefit from rehab, but they refused at this time point History of Present Illness History of Present Illness c/o more sob and chest pain, chest pain is pleuritic CTA showed bl PE still on NC 3 L Vitals Vitals Vital Signs Date Time Temp Pulse Resp B/P (MAP) Pulse Ox O2 Delivery O2 Flow Rate FiO2 12/03/16 11:57 18 96 Room Air 3.0 12/03/16 11:00 98.1 82 110/73 (85) 98.1 Physical Exam General: Alert, Oriented X3 Heart: Regular rate, Normal S1, Other (Irregular) Lungs: Clear Abdomen: Normal bowel sounds, Soft, No tenderness, No hepatosplenomegaly, No masses, Other (obese) Extremities: Other (lymphedema) Skin: No rashes Labs LABS Laboratory Tests Test 12/03/16 05:04 White Blood Count 9.2 x10^3/uL (4.0-11.0) Red Blood Count 4.69 x10^6/uL (4.30-5.70) Hemoglobin 15.2 g/dL (13.0-17.5) Hematocrit 45.8 % (39.0-53.0) Mean Corpuscular Volume 98 fL (79-100) Mean Corpuscular Hemoglobin 32 pg (25-35) Mean Corpuscular Hemoglobin Concent 33 g/dL (31-37) Red Cell Distribution Width 14.7 % (11.5-14.5) Platelet Count 215 x10^3/uL (140-400) Neutrophils (%) (Auto) 63 % (31-73) Lymphocytes (%) (Auto) 26 % (24-48) Monocytes (%) (Auto) 9 % (0-9) Eosinophils (%) (Auto) 2 % (0-3) Basophils (%) (Auto) 1 % (0-3) Neutrophils # (Auto) 5.8 x10^3uL (1.8-7.7) Lymphocytes # (Auto) 2.4 x10^3/uL (1.0-4.8) Monocytes # (Auto) 0.8 x10^3/uL (0.0-1.1) Eosinophils # (Auto) 0.2 x10^3/uL (0.0-0.7) Basophils # (Auto) 0.1 x10^3/uL (0.0-0.2) Heparin Anti-Xa Act, Unfractionated 0.39 IU/mL (0.30-0.70) Sodium Level 141 mmol/L (136-145) Potassium Level 2.9 mmol/L (3.5-5.1) Chloride Level 100 mmol/L (98-107) Carbon Dioxide Level 33 mmol/L (21-32) Anion Gap 8 (6-14) Blood Urea Nitrogen 25 mg/dL (8-26) Creatinine 1.1 mg/dL (0.7-1.3) Estimated GFR (Cockcroft-Gault) 67.2 Glucose Level 124 mg/dL (70-99) Calcium Level 7.8 mg/dL (8.5-10.1) Review of Systems Review of Systems no fever, chills, chest pain Assessment and Plan Assessmemt and Plan Problems Medical Problems: (1) Congestive heart failure Status: Acute (2) Hypoxia Status: Acute Problems: Comment Review of Relevant I have reviewed the following items yuriy (where applicable) has been applied. Labs Laboratory Tests Test 12/01/16 14:15 12/01/16 21:00 12/02/16 05:00 12/03/16 05:04 Heparin Anti-Xa Act, Unfractionated 0.36 IU/mL (0.30-0.70) 0.36 IU/mL (0.30-0.70) 0.52 IU/mL (0.30-0.70) 0.39 IU/mL (0.30-0.70) Magnesium Level 2.1 mg/dL (1.8-2.4) White Blood Count 9.2 x10^3/uL (4.0-11.0) Red Blood Count 4.69 x10^6/uL (4.30-5.70) Hemoglobin 15.2 g/dL (13.0-17.5) Hematocrit 45.8 % (39.0-53.0) Mean Corpuscular Volume 98 fL (79-100) Mean Corpuscular Hemoglobin 32 pg (25-35) Mean Corpuscular Hemoglobin Concent 33 g/dL (31-37) Red Cell Distribution Width 14.7 % (11.5-14.5) Platelet Count 215 x10^3/uL (140-400) Neutrophils (%) (Auto) 63 % (31-73) Lymphocytes (%) (Auto) 26 % (24-48) Monocytes (%) (Auto) 9 % (0-9) Eosinophils (%) (Auto) 2 % (0-3) Basophils (%) (Auto) 1 % (0-3) Neutrophils # (Auto) 5.8 x10^3uL (1.8-7.7) Lymphocytes # (Auto) 2.4 x10^3/uL (1.0-4.8) Monocytes # (Auto) 0.8 x10^3/uL (0.0-1.1) Eosinophils # (Auto) 0.2 x10^3/uL (0.0-0.7) Basophils # (Auto) 0.1 x10^3/uL (0.0-0.2) Sodium Level 141 mmol/L (136-145) Potassium Level 2.9 mmol/L (3.5-5.1) Chloride Level 100 mmol/L (98-107) Carbon Dioxide Level 33 mmol/L (21-32) Anion Gap 8 (6-14) Blood Urea Nitrogen 25 mg/dL (8-26) Creatinine 1.1 mg/dL (0.7-1.3) Estimated GFR (Cockcroft-Gault) 67.2 Glucose Level 124 mg/dL (70-99) Calcium Level 7.8 mg/dL (8.5-10.1) Laboratory Tests Test 12/03/16 05:04 White Blood Count 9.2 x10^3/uL (4.0-11.0) Red Blood Count 4.69 x10^6/uL (4.30-5.70) Hemoglobin 15.2 g/dL (13.0-17.5) Hematocrit 45.8 % (39.0-53.0) Mean Corpuscular Volume 98 fL (79-100) Mean Corpuscular Hemoglobin 32 pg (25-35) Mean Corpuscular Hemoglobin Concent 33 g/dL (31-37) Red Cell Distribution Width 14.7 % (11.5-14.5) Platelet Count 215 x10^3/uL (140-400) Neutrophils (%) (Auto) 63 % (31-73) Lymphocytes (%) (Auto) 26 % (24-48) Monocytes (%) (Auto) 9 % (0-9) Eosinophils (%) (Auto) 2 % (0-3) Basophils (%) (Auto) 1 % (0-3) Neutrophils # (Auto) 5.8 x10^3uL (1.8-7.7) Lymphocytes # (Auto) 2.4 x10^3/uL (1.0-4.8) Monocytes # (Auto) 0.8 x10^3/uL (0.0-1.1) Eosinophils # (Auto) 0.2 x10^3/uL (0.0-0.7) Basophils # (Auto) 0.1 x10^3/uL (0.0-0.2) Heparin Anti-Xa Act, Unfractionated 0.39 IU/mL (0.30-0.70) Sodium Level 141 mmol/L (136-145) Potassium Level 2.9 mmol/L (3.5-5.1) Chloride Level 100 mmol/L (98-107) Carbon Dioxide Level 33 mmol/L (21-32) Anion Gap 8 (6-14) Blood Urea Nitrogen 25 mg/dL (8-26) Creatinine 1.1 mg/dL (0.7-1.3) Estimated GFR (Cockcroft-Gault) 67.2 Glucose Level 124 mg/dL (70-99) Calcium Level 7.8 mg/dL (8.5-10.1) Microbiology 11/30/16 Blood Culture - Preliminary, Resulted NO GROWTH AFTER 2 DAYS Medications Current Medications Fentanyl Citrate (Fentanyl 2ml Vial) 25 mcg PRN Q15MIN PRN IV PAIN GREATER THAN 3/10; Start 11/30/16 at 14:15; Stop 11/30/16 at 20:05; Status DC Iohexol (Omnipaque 300 Mg/ml) 75 ml 1X ONCE IV ; Start 11/30/16 at 15:00; Stop 11/30/16 at 15:03; Status DC Info (Do NOT chart on this entry -- for MONITORING) 1 each PRN DAILY PRN MC SEE COMMENTS; Start 11/30/16 at 15:00; Stop 12/02/16 at 14:59; Status DC Furosemide (Lasix) 40 mg 1X ONCE IVP Last administered on 11/30/16 17:39; Start 11/30/16 at 17:15; Stop 11/30/16 at 17:16; Status DC Sulfur Hexafluoride Microspheres (Lumason) 25 mg STK-MED ONCE IVP ; Start at 17:12; Stop 11/30/16 at 17:13; Status DC Aspirin (Georgette Aspirin) 325 mg 1X ONCE PO Last administered on 11/30/16 17:38 ; Start 11/30/16 at 17:15; Stop 11/30/16 at 17:17; Status DC Aspirin (Ecotrin) 325 mg DAILYWBKFT PO Last administered on 12/03/16 08:03; Start 12/01/16 at 08:00 Heparin Sodium (Porcine) (Heparin Sodium) 10,000 unit 1X ONCE IV Last administered on 11/30/16 18:20; Start 11/30/16 at 17:45; Stop 11/30/16 at 17:46 ; Status DC Heparin Sodium/ Dextrose 500 ml @ 0 mls/hr CONT PRN IV SEE I/O RECORD Last administered on 12/02/16 23:51; Start 11/30/16 at 17:45; Stop 12/03/16 at 13:30 ; Status DC Heparin Sodium (Porcine) (Heparin Sodium) 5,500 unit PRN Q6HRS PRN IV FOR UFH LEVEL LESS THAN 0.2; Start 11/30/16 at 17:45; Stop 12/03/16 at 11:33; Status DC Heparin Sodium (Porcine) (Heparin Sodium) 2,750 unit PRN Q6HRS PRN IV FOR UFH LEVEL 0.2 - 0.29; Start 11/30/16 at 17:45; Stop 12/03/16 at 11:33; Status DC Ondansetron HCl (Zofran) 4 mg PRN Q8HRS PRN IV NAUSEA/VOMITING; Start 11/30/16 at 18:00; Stop 12/01/16 at 17:59; Status DC Fentanyl Citrate (Fentanyl 2ml Vial) 50 mcg PRN Q1HR PRN IV PAIN; Start at 18:00; Stop 11/30/16 at 20:05; Status DC Acetaminophen (Tylenol) 650 mg PRN Q4HRS PRN PO FEVER; Start 11/30/16 at 18:00 ; Stop 12/01/16 at 17:59; Status DC Nitroglycerin (Nitrostat) 0.4 mg PRN Q5MIN PRN SL CHEST PAIN; Start 11/30/16 at 18:00; Stop 12/01/16 at 17:59; Status DC Cyclobenzaprine HCl (Flexeril) 10 mg PRN TID PRN PO BREAKTHROUGH MUSCLE PAIN Last administered on 12/03/16 08:03; Start 11/30/16 at 20:15 Acetaminophen/ Hydrocodone Bitart (Lortab 10/325) 1 tab PRN Q4HRS PRN PO PAIN Last administered on 12/03/16 11:57; Start 11/30/16 at 20:15 Levothyroxine Sodium (Synthroid) 175 mcg DAILYAC PO Last administered on 06:48; Start 12/01/16 at 07:30 Tramadol HCl (Ultram) 50 mg PRN Q6HRS PRN PO PAIN; Start 11/30/16 at 20:15 Ceftriaxone Sodium 1 gm/ Sodium Chloride 50 ml @ 100 mls/hr Q24H IV Last administered on 12/03/16 08:05; Start 12/01/16 at 09:00 Iohexol (Omnipaque 350 Mg/ml) 75 ml 1X ONCE IV ; Start 12/01/16 at 09:30; Stop 12/01/16 at 09:35; Status DC Furosemide (Lasix) 40 mg [id number] IVP Last administered on 12/02/16 16:30; Start 12/01/16 at 11:00 Potassium Chloride (Klor-Con) 20 meq DAILYWBKFT PO Last administered on 10:26; Start 12/02/16 at 10:00; Stop 12/02/16 at 13:16; Status DC Iohexol (Omnipaque 300 Mg/ml) 75 ml 1X ONCE IV Last administered on 12/02/16 14:14; Start 12/02/16 at 12:30; Stop 12/02/16 at 12:33; Status DC Metoprolol Tartrate (Lopressor) 25 mg BID PO Last administered on 12/03/16 08: 04; Start 12/02/16 at 13:30 Potassium Chloride (Klor-Con) 20 meq BIDWMEALS PO Last administered on 08:06; Start 12/02/16 at 17:00 Potassium Chloride (Klor-Con) 20 meq 1X ONCE PO Last administered on 13:44; Start 12/02/16 at 13:30; Stop 12/02/16 at 13:31; Status DC Atorvastatin Calcium (Lipitor) 10 mg QHS PO Last administered on 12/02/16 21: 32; Start 12/02/16 at 21:00 Potassium Chloride (Klor-Con) 40 meq 1X ONCE PO Last administered on 06:48; Start 12/03/16 at 06:45; Stop 12/03/16 at 06:46; Status DC Apixaban (Eliquis) 10 mg BID PO Last administered on 12/03/16 11:53; Start at 12:00 Info (Anti-Coagulation Monitoring By Pharmacy) 1 each PRN DAILY PRN MC SEE COMMENTS; Start 12/03/16 at 11:45 Prednisone (Prednisone) 20 mg DAILY PO Last administered on 12/03/16 11:53; Start 12/03/16 at 12:00 Iohexol (Omnipaque 300 Mg/ml) 75 ml 1X ONCE IV Last administered on 12/03/16 13:33; Start 12/03/16 at 12:15; Stop 12/03/16 at 12:16; Status DC Iohexol (Omnipaque 240 Mg/ml) 30 ml 1X ONCE PO Last administered on 12/03/16t 12:15; Start 12/03/16 at 12:15; Stop 12/03/16 at 12:16; Status DC Info (Do NOT chart on this entry -- for MONITORING) 1 each PRN DAILY PRN MC SEE COMMENTS; Start 12/03/16 at 12:15; Stop 12/05/16 at 12:14 Active Scripts Active Cyclobenzaprine Hcl 10 Mg Tablet 10 Mg PO TID PRN 30 Days Reported Metolazone 2.5 Mg Tablet 2.5 Mg PO QODAY Tramadol Hcl 50 Mg Tablet 50 Mg PO Q6H PRN Lortab 10-325 mg Tablet (Hydrocodone/Acetaminophen) 1 Each Tablet 1 Tab PO PRN Q4HRS PRN Levothyroxine Sodium 200 Mcg Tablet 225 Mcg PO DAILYAC Levothyroxine Sodium 175 Mcg Tablet 175 Mcg PO DAILYAC Vitals/I & O Vital Sign - Last 24 Hours 12/02/16 12/02/16 12/02/16 12/02/16 15:00 19:45 20:00 21:33 Temp 98.9 97.9 98.9 97.9 Pulse 85 92 92 Resp 16 14 B/P (MAP) 99/75 (83) 121/63 (82) 121/63 Pulse Ox 94 96 O2 Delivery Room Air Nasal Cannula Room Air O2 Flow Rate 3.0 12/02/16 12/02/16 12/03/16 12/03/16 21:34 23:00 03:40 07:04 Temp 98.2 98.3 98.2 98.2 98.3 98.2 Pulse 90 92 93 Resp 18 18 18 B/P (MAP) 115/70 (85) 106/70 (82) 101/67 (78) Pulse Ox 96 94 97 95 O2 Delivery Nasal Cannula Nasal Cannula Nasal Cannula Nasal Cannula O2 Flow Rate 3.0 3.0 3.0 3.0 12/03/16 12/03/16 12/03/16 12/03/16 08:02 08:04 09:04 11:00 Temp 98.1 98.1 Pulse 86 82 Resp 18 18 19 B/P (MAP) 101/67 110/73 (85) Pulse Ox 95 95 96 O2 Delivery Nasal Cannula Nasal Cannula Nasal Cannula O2 Flow Rate 3.0 3.0 3.0 12/03/16 11:57 Resp 18 Pulse Ox 96 O2 Delivery Room Air O2 Flow Rate 3.0 Intake and Output 12/02/16 12/02/16 12/03/16 15:00 23:00 07:00 Intake Total 950 ml 420 ml 650 ml Output Total 1600 ml 300 ml 600 ml Balance -650 ml 120 ml 50 ml VERONICA MCELROY MD Dec 03, 2016 14:14
[2016-12-03 15:00] VITALS: BP 103/72
--- NOTE | 2016-12-03 15:01 | RAD ---
CT abdomen/pelvis with contrast 12/03/2016 at 1332 hours Indication: Recent PE, rule out occult malignancy. Comparison: CT chest 12/02/2016, abdomen/pelvis 11/08/2013 Technique: Multiple axial CT images of the abdomen and pelvis were acquired with intravenous contrast. Oral contrast was administered. 74 mL's of Omnipaque 300 was administered intravenously. Coronal and sagittal reformats are provided. Findings: Bibasilar opacities may represent subsegmental atelectasis. Consolidation at the left lung base may represent developing pulmonary infarct. Heart size is within normal limits. The liver enhances homogenously without evidence for a focal mass lesion. The spleen is normal. Bilateral adrenal glands are normal. The gallbladder is present without adjacent inflammatory changes. Pancreas is normal in appearance without evidence for a focal mass. No pancreatic ductal dilatation. No peripancreatic inflammatory changes. No intrahepatic or extrahepatic biliary ductal dilatation. The abdominal aorta is normal in course and caliber. IVC is patent. There are no enlarged lymph nodes in the abdomen or pelvis. There is no free intraperitoneal air. No free fluid within the abdomen or pelvis. The kidneys enhance symmetrically. Previously described right renal calculus is not visualized on current examination and may have passed. There is no hydronephrosis. No contour deforming renal mass. Small and large bowel are normal in caliber. A normal appendix is visualized. No pericolonic inflammatory changes are present. The urinary bladder is normal in appearance. Prostate appears normal. No suspicious osseous lesions are identified. Levoconvex scoliosis of the lumbar spine centered at L4-L5. Moderate to advanced degenerative changes at L4-L5. Impression: 1. Bibasilar opacities with area of focal consolidation at the left lung base may represent developing pulmonary infarct given recent of pulmonary emboli. 2. No evidence for a solid or cystic mass in the abdomen or pelvis. 3. Previously described right-sided renal calculus is not visualized and may have passed in the interval since 11/08/2013. PQRS Compliance Statement: One or more of the following individualized dose reduction techniques were utilized for this examination: 1. Automated exposure control 2. Adjustment of the mA and/or kV according to patient size 3. Use of iterative reconstruction technique
[2016-12-03 19:45] VITALS: BP 126/83
[2016-12-03] MEDS: ATORVASTATIN CALCIUM 10 MG TABLET. PO SCH (20:37)
[2016-12-03 23:15] VITALS: BP 115/61
[2016-12-04 00:09] LABS: HOMOCYSTINE LEVEL 8.6 umol/L (0.0-15.0)
[2016-12-04] MEDS: HYDROcodone/APAP 10/325 1 TAB TABLET PO PRN (01:37)
[2016-12-04 03:45] VITALS: BP 113/67
[2016-12-04 06:48] LABS: CALCIUM 8.6 mg/dL (8.5-10.1); CREATININE 0.9 mg/dL (0.7-1.3); GFR 84.7; POTASSIUM 3.4 mmol/L (3.5-5.1)
[2016-12-04 07:00] VITALS: BP 132/81
[2016-12-04 07:59] LABS: BASO % 0 % (0-3); EOS % 1 % (0-3); HEMOGLOBIN 14.5 g/dL (13.0-17.5); LYMPH # 2.2 x10^3/uL (1.0-4.8); LYMPH % 27 % (24-48); MEAN CORPUSCULAR HEMOGLOBIN 33 pg (25-35); MEAN CORPUSCULAR HGB CONC 34 g/dL (31-37); MEAN CORPUSCULAR VOLUME 98 fL (79-100); MONO % 9 % (0-9); NEUT % 63 % (31-73); PLATELET COUNT 262 x10^3/uL (140-400); RED CELL DISTRIBUTION WIDTH 14.5 % (11.5-14.5)
[2016-12-04] MEDS: LEVOTHYROXINE 175 MCG TABLET PO SCH (08:18)
[2016-12-04] MEDS: FUROSEMIDE 40 MG/4 ML VIAL. IVP SCH (09:27)
[2016-12-04] MEDS: ASPIRIN ENTERIC COATED 325 MG TABLET.DR. PO SCH (09:27)
[2016-12-04] MEDS: METOPROLOL TART IMMED RELEASE 25 MG TABLET. PO SCH (09:28)
[2016-12-04] MEDS: APIXABAN 5 MG TABLET. PO SCH (09:28)
[2016-12-04] MEDS: predniSONE 20 MG TABLET PO SCH (09:28)
[2016-12-04] MEDS: POTASSIUM CHLORIDE 20 MEQ TABLET.ER. PO SCH (09:28)
--- NOTE | 2016-12-04 10:12 | PDOC ---
PULMONARY PROGRESS NOTES Subjective feels much better no soa Vitals Vital Signs Date Time Temp Pulse Resp B/P (MAP) Pulse Ox O2 Delivery O2 Flow Rate FiO2 12/04/16 09:28 81 132/81 12/04/16 07:00 97.7 18 97 Nasal Cannula 3.0 97.7 General: Alert, No acute distress Lungs: Clear Cardiovascular: S1 Abdomen: Soft, Other (obese) Neuro Exam: Alert Extremities: Other (lymphedema) Skin: Warm Labs Laboratory Tests Test 12/03/16 05:04 12/03/16 12:20 12/04/16 04:49 White Blood Count 9.2 x10^3/uL (4.0-11.0) 8.0 x10^3/uL (4.0-11.0) Red Blood Count 4.69 x10^6/uL (4.30-5.70) 4.40 x10^6/uL (4.30-5.70) Hemoglobin 15.2 g/dL (13.0-17.5) 14.5 g/dL (13.0-17.5) Hematocrit 45.8 % (39.0-53.0) 43.0 % (39.0-53.0) Mean Corpuscular Volume 98 fL (79-100) 98 fL (79-100) Mean Corpuscular Hemoglobin 32 pg (25-35) 33 pg (25-35) Mean Corpuscular Hemoglobin Concent 33 g/dL (31-37) 34 g/dL (31-37) Red Cell Distribution Width 14.7 % (11.5-14.5) 14.5 % (11.5-14.5) Platelet Count 215 x10^3/uL (140-400) 262 x10^3/uL (140-400) Neutrophils (%) (Auto) 63 % (31-73) 63 % (31-73) Lymphocytes (%) (Auto) 26 % (24-48) 27 % (24-48) Monocytes (%) (Auto) 9 % (0-9) 9 % (0-9) Eosinophils (%) (Auto) 2 % (0-3) 1 % (0-3) Basophils (%) (Auto) 1 % (0-3) 0 % (0-3) Neutrophils # (Auto) 5.8 x10^3uL (1.8-7.7) 5.1 x10^3uL (1.8-7.7) Lymphocytes # (Auto) 2.4 x10^3/uL (1.0-4.8) 2.2 x10^3/uL (1.0-4.8) Monocytes # (Auto) 0.8 x10^3/uL (0.0-1.1) 0.7 x10^3/uL (0.0-1.1) Eosinophils # (Auto) 0.2 x10^3/uL (0.0-0.7) 0.0 x10^3/uL (0.0-0.7) Basophils # (Auto) 0.1 x10^3/uL (0.0-0.2) 0.0 x10^3/uL (0.0-0.2) Heparin Anti-Xa Act, Unfractionated 0.39 IU/mL (0.30-0.70) > 1.10 IU/mL (0.30-0.70) Sodium Level 141 mmol/L (136-145) 139 mmol/L (136-145) Potassium Level 2.9 mmol/L (3.5-5.1) 3.4 mmol/L (3.5-5.1) Chloride Level 100 mmol/L (98-107) 100 mmol/L (98-107) Carbon Dioxide Level 33 mmol/L (21-32) 28 mmol/L (21-32) Anion Gap 8 (6-14) 11 (6-14) Blood Urea Nitrogen 25 mg/dL (8-26) 22 mg/dL (8-26) Creatinine 1.1 mg/dL (0.7-1.3) 0.9 mg/dL (0.7-1.3) Estimated GFR (Cockcroft-Gault) 67.2 84.7 Glucose Level 124 mg/dL (70-99) 112 mg/dL (70-99) Calcium Level 7.8 mg/dL (8.5-10.1) 8.6 mg/dL (8.5-10.1) Homocystine 8.6 umol/L (0.0-15.0) Laboratory Tests Test 12/03/16 12:20 12/04/16 04:49 Homocystine 8.6 umol/L (0.0-15.0) White Blood Count 8.0 x10^3/uL (4.0-11.0) Red Blood Count 4.40 x10^6/uL (4.30-5.70) Hemoglobin 14.5 g/dL (13.0-17.5) Hematocrit 43.0 % (39.0-53.0) Mean Corpuscular Volume 98 fL (79-100) Mean Corpuscular Hemoglobin 33 pg (25-35) Mean Corpuscular Hemoglobin Concent 34 g/dL (31-37) Red Cell Distribution Width 14.5 % (11.5-14.5) Platelet Count 262 x10^3/uL (140-400) Neutrophils (%) (Auto) 63 % (31-73) Lymphocytes (%) (Auto) 27 % (24-48) Monocytes (%) (Auto) 9 % (0-9) Eosinophils (%) (Auto) 1 % (0-3) Basophils (%) (Auto) 0 % (0-3) Neutrophils # (Auto) 5.1 x10^3uL (1.8-7.7) Lymphocytes # (Auto) 2.2 x10^3/uL (1.0-4.8) Monocytes # (Auto) 0.7 x10^3/uL (0.0-1.1) Eosinophils # (Auto) 0.0 x10^3/uL (0.0-0.7) Basophils # (Auto) 0.0 x10^3/uL (0.0-0.2) Heparin Anti-Xa Act, Unfractionated > 1.10 IU/mL (0.30-0.70) Sodium Level 139 mmol/L (136-145) Potassium Level 3.4 mmol/L (3.5-5.1) Chloride Level 100 mmol/L (98-107) Carbon Dioxide Level 28 mmol/L (21-32) Anion Gap 11 (6-14) Blood Urea Nitrogen 22 mg/dL (8-26) Creatinine 0.9 mg/dL (0.7-1.3) Estimated GFR (Cockcroft-Gault) 84.7 Glucose Level 112 mg/dL (70-99) Calcium Level 8.6 mg/dL (8.5-10.1) Medications Active Scripts Medications Dose Route/Sig Max Daily Dose Days Date Category Metolazone 2.5 Mg Tablet 2.5 Mg PO QODAY 12/01/16 Reported Cyclobenzaprine Hcl 10 Mg Tablet 10 Mg PO TID PRN 30 11/09/13 Rx Tramadol Hcl 50 Mg Tablet 50 Mg PO Q6H PRN 11/09/13 Reported Lortab 10-325 mg Tablet (Hydrocodone/Acetaminophen) 1 Each Tablet 1 Tab PO PRN Q4HRS PRN 11/09/13 Reported Levothyroxine Sodium 200 Mcg Tablet 225 Mcg PO DAILYAC 11/09/13 Reported Levothyroxine Sodium 175 Mcg Tablet 175 Mcg PO DAILYAC 11/09/13 Reported Impression . 1. Acute hypoxic RF in a patient who is obese and had recent left rib sprain which was most likely due to PE , now presents with worsening hypoxic RF with markedly elevated D-Dimer. Highly suspect PE/ He declined CTA initially, CTA done 12/02 confirmed bilateral extensive PE 2. Recent Acute Bronchitis 3. Recent left rib sprain/ suspect may had a PE and was mistaken as rib pain. He saw chiropracter 4. Morbid obesity, denies s/s of SKYE 5. A-fib, previously stopped coumadin due to SE 6. No occult malignancy by ct abdomen/pelvis. hypercoagulable state pending. Underlying morbid obesity is an independent risk factor for PE 7. Increase troponin, suspect due to RV ischemia Plan . 1. Eliquis 3-6 months unless cardiology wants it longer then that due to A- Fib. His obesity needs to improve before its safe to dc AC 2. Hypercoagulable panel 3. Dopplers negative 4. A-Fib per cardiology 5. ct abdomen/pelvis with no GI malignancy 6. d/w and patient in detail 7. 3-6 months of anticoagulation 8. f/u ct chest a week before f/u with me in office in jan 9. 6 min walk today 10.d/w pt and regarding all risks of AC ABDI SMITH MD Dec 04, 2016 10:12
[2016-12-04 11:00] VITALS: BP 108/65
[2016-12-04] MEDS ORDERED: APIX5TAB PO (12:28)
[2016-12-04] MEDS ORDERED: ATOR10TA60 PO (12:28)
[2016-12-04] MEDS ORDERED: POTASSIUM CHLORIDE 20 MEQ TABLET.ER. PO ONE (12:30)
[2016-12-04] MEDS ORDERED: METO25TA4 PO (12:33)
[2016-12-04] MEDS ORDERED: POTA20TA4 PO (12:33)
[2016-12-04] MEDS ORDERED: FURO40TA4 PO (12:33)
--- NOTE | 2016-12-04 14:32 | PDOC3 ---
Discharge Summary [facility] Date of Admission: Nov 30, 2016 Discharge Date: Dec 04, 2016 Admitting Diagnosis 1. acute hypoxic resp failure: BL PE 2. bl PE: 3. CHF: mild diastolic dysfxn on technically difficult study due to body habitus. 4. NSTEMI: mild troponin leak prob 2/2 above. according to pt, his "heart is fine". declines further W/U 5. Afib: chronic. declines cardioversion as d/w cardiology 6. OAC: has been on warferin in the past, but stopped himself (causes him to feel unwell and weak). 8. Hyperlipidemia: mild abn. statin would be useful, but with him declining life-saving meds and interventions... 9. Chronic lymphedema: declines lymphedema treatment or wraps 10. Morbid obesity: BMI 57.5 hypokalemia Problems: Final Diagnosis CONSULTS card Brief Hospital Course Mr. Coto is a 66 old m, MOrbid obesity, comes for sob, bl leg chronic lymphedema. He need NC 3L in hosp, passed 6min walk when dc. Echo basically normal with limited study. CTA showed bl PE. US ruled out dvt. pT WAS on heparin drip, still sob, chest pain pleuritic, tachycardia especially ambulation. today feels better, dc home with metoprolol 50mg bid, eliquis. fu with pulm. lasix 40mg daily. abd/pelvis CT neg. dc time 35min General: Alert, Oriented X3 Heart: Regular rate, Normal S1, Other (Irregular) Lungs: Clear Abdomen: Normal bowel sounds, Soft, No tenderness, No hepatosplenomegaly, No masses, Other (obese) Extremities: Other (lymphedema) Skin: No rashes Patient History: FH: COPD (chronic obstructive pulmonary disease) 32 MOTHER (COPD) FH: SD (myocardial infarction) G8 BROTHER (SD) 32 MOTHER ( OF SD) FH: emphysema 33 FATHER (EMPHYSEMA, COPD, HEART D.) FH: kidney disease G8 BROTHER (KIDNEY D.) Problems: Disposition home CONDITION AT DISCHARGE: Improved Diet cardiac Scheduled Apixaban (Eliquis), 10 MG PO BID Atorvastatin Calcium (Atorvastatin Calcium), 10 MG PO QHS Furosemide (Furosemide), 40 MG PO DAILY Levothyroxine Sodium (Levothyroxine Sodium), 175 MCG PO DAILYAC, (Reported) Metolazone (Metolazone), 2.5 MG PO QODAY, (Reported) Metoprolol Tartrate (Metoprolol Tartrate), 50 MG PO BID Potassium Chloride (Klor-Con M20), 20 MEQ PO DAILYWBKFT Scheduled PRN Cyclobenzaprine Hcl (Cyclobenzaprine Hcl), 10 MG PO TID PRN for BREAKTHROUGH PAIN Hydrocodone/Acetaminophen (Lortab 10-325 mg Tablet), 1 TAB PO PRN Q4HRS PRN for PAIN, (Reported) Tramadol Hcl (Tramadol Hcl), 50 MG PO Q6H PRN for PAIN, (Reported) Discontinued Medications Levothyroxine Sodium (Levothyroxine Sodium), 225 MCG PO DAILYAC, (Reported) Follow Up pulm in 2 weeks VERONICA MCELROY MD Dec 04, 2016 14:32
[2016-12-04] MEDS ORDERED: METOPROLOL TART IMMED RELEASE 25 MG TABLET. PO SCH (21:00)
[2016-12-05] MEDS ORDERED: POTASSIUM CHLORIDE 20 MEQ TABLET.ER. PO SCH (08:00)
[2016-12-05] MEDS ORDERED: FUROSEMIDE 40 MG TABLET. PO SCH ×2 (09:00)
[2016-12-10] MEDS ORDERED: APIXABAN 5 MG TABLET. PO SCH (09:00)
== END 2016-12-04 14:07 | disposition home or self-care (01) | DRG 280 ==
LOC: ER 13:07 → 2 NORTH 16:29
PROVIDERS: ADMIT Internal Medicine Hematology & Oncology; ATTEND Internal Medicine Hematology & Oncology
PROC: 5A09357 Assistance with Respiratory Ventilation, Less than 24 Consecutive Hours, Continuous Positive Airway Pressure (ICD-10-PCS; principal; 2016-11-30)
DX: I21.4 Non-ST elevation (NSTEMI) myocardial infarction (principal); I50.33 Acute on chronic diastolic (congestive) heart failure; J96.01 Acute respiratory failure with hypoxia; I26.99 Other pulmonary embolism without acute cor pulmonale; Z68.43 Body mass index [BMI] 50.0-59.9, adult; N17.9 Acute kidney failure, unspecified; E03.9 Hypothyroidism, unspecified; E66.01 Morbid (severe) obesity due to excess calories; E78.5 Hyperlipidemia, unspecified; E87.6 Hypokalemia; I48.2 Chronic atrial fibrillation; I89.0 Lymphedema, not elsewhere classified; J44.9 Chronic obstructive pulmonary disease, unspecified; K21.9 Gastro-esophageal reflux disease without esophagitis; M19.90 Unspecified osteoarthritis, unspecified site; R73.03 Prediabetes; Z82.49 Family history of ischemic heart disease and other diseases of the circulatory system; Z82.5 Family history of asthma and other chronic lower respiratory diseases
CPT/HCPCS: 36415; 36600; 71010; 71275; 74177; 80048; 80053; 80061; 81001; 82805; 83090; 83605; 83735; 83880; 84484; 85027; 85379; 85520; 85610; 85730; 86147; 87040; 93005; 93308; 93970; 94620; 94660; 94760; 96374; 96375; A6539; J0696; J1644; J1940; J7512; Q9966; Q9967; 99285-25

== ENCOUNTER → 2017-01-29 | Outpatient (CLI) | payer MEDICARE, OTHER ==
[~2017-01-29] MED LIST changes: +APIX5TAB PO; +ATOR10TA60 PO; +FURO40TA4 PO; +IOHEXOL 300 MG/ML 75 ML VIAL IV ONE; +METO2.5T PO; +METO25TA4 PO; +POTA20TA4 PO
--- NOTE | 2017-01-29 11:40 | RAD ---
CT angiography of the chest with contrast 01/29/2017 at 0839 hours Indication: Shortness of breath Comparison: None available Technique: Multiple axial CT images of the chest were obtained after the administration of 75 mL Omnipaque 300 intravenously. Coronal and sagittal reformats are provided. Maximum intensity projection images are provided. Findings: There is adequate opacification of the pulmonary arterial system. No filling defects are identified to suggest an acute pulmonary embolism. Heart size is within normal limits. Thoracic aorta is normal in course and caliber. Minor atherosclerotic ulceration is present. Three-vessel coronary artery vascular calcic dictation is noted. No pericardial effusion is present. There are no suspicious pulmonary nodules identified. No pulmonary infiltrates. There is a 9 mm calcified granuloma in the left upper lobe anteriorly. No pleural effusions, pulmonary vascular congestion or pneumothorax. No suspicious osseous lesions are identified.. Visualized portions of the upper abdomen are within normal limits. Impression: 1. No evidence for acute pulmonary embolism. 2. No suspicious pulmonary nodules or pulmonary infiltrates. PQRS Compliance Statement: One or more of the following individualized dose reduction techniques were utilized for this examination: 1. Automated exposure control 2. Adjustment of the mA and/or kV according to patient size 3. Use of iterative reconstruction technique
== END | disposition home or self-care (01) ==
LOC: CT 08:18
PROVIDERS: ATTEND Internal Medicine Critical Care Medicine
DX: J84.10 Pulmonary fibrosis, unspecified (principal); R06.02 Shortness of breath
CPT/HCPCS: 71275

== ENCOUNTER 2018-10-24 14:27 | Inpatient (IN) | payer MEDICARE, OTHER ==
[~2018-10-24] VITALS: Ht 180.3 cm; Wt 163.7 kg
[~2018-10-24 14:27] MED LIST changes: -IOHEXOL 300 MG/ML 75 ML VIAL IV ONE
--- NOTE | 2018-10-24 16:39 | PHYS DOC ---
Past Medical History Past Medical History: A-Fib, Arthritis, Hypothyroid Additional Past Medical Histor: lymphedema Past Surgical History: Other Additional Past Surgical Histo: jaw Alcohol Use: Occasionally Drug Use: None Adult General Chief Complaint Chief Complaint: ABNORMAL LABS HPI HPI 68-year-old male presents to ER via POV reporting he was sent to the ER by his primary care physicians for abnormal labs. He reports he had labs taken on Wednesday which showed increased potassium and renal functions. Patient states for the past 2 months he has had generalized fatigue and was inpatient at last month. Patient states he was provided with IV fluids and at time of discharge had no improvement in symptoms. He denies any pain. He reports he's had intermittent nausea denying vomiting or diarrhea episodes. Patient denies fever, urinary symptoms, chest pain, or palpitations. Pt does report some exertional SOA in past few wks- denies cough. Denies SOA currently. Pt has history of lymphedema denies any increased swelling. Pt reports he has been having regular bowel movements denies any urinary symptoms. Review of Systems Review of Systems Constitutional: Denies fever or chills. Reports generalized fatigue Eyes: Denies change in visual acuity, redness, or eye pain [] HENT: Denies nasal congestion or sore throat [] Respiratory: Denies cough. Reports exertional shortness of air currently denies Cardiovascular: Denies chest pain or palpitations GI: Denies abdominal pain, vomiting, bloody stools or diarrhea. Reports intermittent nausea denies currently : Denies dysuria or hematuria [] Musculoskeletal: Denies back pain or joint pain [] Integument: Denies rash or skin lesions [] Neurologic: Denies headache, focal weakness or sensory changes. Denies dizziness Endocrine: Denies polyuria or polydipsia [] All other systems were reviewed and found to be within normal limits, except as documented in this note. Allergies Allergies Allergies Coded Allergies Type Severity Reaction Last Updated Verified No Known Drug Allergies 10/24/18 No Physical Exam Physical Exam Constitutional: Well developed, well nourished, no acute distress, non-toxic appearance. [] HENT: Normocephalic, atraumatic, oropharynx moist, nose normal. [] Eyes: Pupils equal, conjunctiva normal, no discharge. [] Neck: Normal range of motion, no tenderness, supple, no stridor. [] Cardiovascular: Heart rate regular rhythm, no murmur [] Lungs & Thorax: Bilateral breath sounds clear to auscultation- resp. equal/nonlabored Abdomen: Bowel sounds normal, soft/obese, no tenderness Skin: Warm, dry Back: No tenderness, no CVA tenderness. [] Extremities: No tenderness, no cyanosis, no clubbing, ROM intact, 3+ edema lateral lower extremities- pt has wraps on bilateral lower legs Neurologic: Alert and oriented X 3, normal motor function, normal sensory function, no focal deficits noted. [] Psychologic: Affect normal, judgement normal, mood normal. [] Current Patient Data Vital Signs Vital Signs Date Time Temp Pulse Resp B/P (MAP) Pulse Ox O2 Delivery O2 Flow Rate FiO2 10/24/18 17:36 90 23 144/70 (94) 97 Room Air 10/24/18 15:34 97.5 97.5 Lab Values Laboratory Tests Test 10/24/18 16:30 White Blood Count 9.3 x10^3/uL (4.0-11.0) Red Blood Count 4.86 x10^6/uL (4.30-5.70) Hemoglobin 15.5 g/dL (13.0-17.5) Hematocrit 45.8 % (39.0-53.0) Mean Corpuscular Volume 94 fL (79-100) Mean Corpuscular Hemoglobin 32 pg (25-35) Mean Corpuscular Hemoglobin Concent 34 g/dL (31-37) Red Cell Distribution Width 15.3 % (11.5-14.5) H Platelet Count 361 x10^3/uL (140-400) Neutrophils (%) (Auto) 71 % (31-73) Lymphocytes (%) (Auto) 19 % (24-48) L Monocytes (%) (Auto) 9 % (0-9) Eosinophils (%) (Auto) 1 % (0-3) Basophils (%) (Auto) 0 % (0-3) Neutrophils # (Auto) 6.6 x10^3uL (1.8-7.7) Lymphocytes # (Auto) 1.7 x10^3/uL (1.0-4.8) Monocytes # (Auto) 0.8 x10^3/uL (0.0-1.1) Eosinophils # (Auto) 0.1 x10^3/uL (0.0-0.7) Basophils # (Auto) 0.0 x10^3/uL (0.0-0.2) Sodium Level 126 mmol/L (136-145) L Potassium Level 5.5 mmol/L (3.5-5.1) H Chloride Level 93 mmol/L (98-107) L Carbon Dioxide Level 20 mmol/L (21-32) L Anion Gap 13 (6-14) Blood Urea Nitrogen 68 mg/dL (8-26) H Creatinine 2.1 mg/dL (0.7-1.3) H Estimated GFR (Cockcroft-Gault) 31.7 BUN/Creatinine Ratio 32 (6-20) H Glucose Level 132 mg/dL (70-99) H Calcium Level 9.6 mg/dL (8.5-10.1) Magnesium Level 2.8 mg/dL (1.8-2.4) H Total Bilirubin 0.3 mg/dL (0.2-1.0) Aspartate Amino Transferase (AST) 24 U/L (15-37) Alanine Aminotransferase (ALT) 26 U/L (16-63) Alkaline Phosphatase 60 U/L (46-116) Creatine Kinase 49 U/L (39-308) Creatine Kinase MB (Mass) 1.0 ng/mL (0.0-3.6) Creatine Kinase MB Relative Index % (0-4) Troponin I Quantitative < 0.017 ng/mL (0.000-0.055) Total Protein 7.3 g/dL (6.4-8.2) Albumin 3.3 g/dL (3.4-5.0) L Albumin/Globulin Ratio 0.8 (1.0-1.7) L Laboratory Tests 10/24/18 16:30 Laboratory Tests 10/24/18 16:30 EKG EKG EKG obtained 10/24/18 at [address] Stone Radiology/Procedures Radiology/Procedures PROCEDURE: CHEST PA & LATERAL EXAM: Chest, 2 views. HISTORY: Dyspnea on exertion. COMPARISON: 01/29/2017 FINDINGS: 2 views of the chest are obtained. There is no infiltrate, pleural effusion or pneumothorax. The heart is normal in size. IMPRESSION: No acute pulmonary finding. Electronically signed by: Karen Chavze MD (10/24/2018 5:40 PM) [facility] DICTATED and SIGNED BY: KAREN CHAVEZ MD DATE: 10/24/18 1083 Course & Med Decision Making Course & Med Decision Making Pertinent Labs and Imaging studies reviewed. (See chart for details) 1807: Spoke with Dr. Mar, employee relations specialist physician for patient's primary care physician Dr. Mcclellan. Discussed patient's case and admit plan. Per his request will place order for normal saline at 80 mL per hour. 1822: RN reports patient provided further information on ongoing medical issues. Patient reports he has bilateral ulcerations and wounds on his lower extremities which he has been caring for at home and has not had evaluation for. With this finding will have wound nurse with admission. Went to discuss this further with patient as well as to perform exam on bilateral lower extremities as he had been sitting up one-sided bed during initial exam. Patient refused to have bilateral leg wraps removed and would not allow this provider to evaluate the wounds or his lower extremities. Pt states he will wait for wound nurse to evaluate them. Patient states he has had drainage from bilateral lower extremities- denies redness or bleeding currently. Dragon Disclaimer Dragon Disclaimer This electronic medical record was generated, in whole or in part, using a voice recognition dictation system. Departure Departure Impression: Primary Impression: Acute renal injury Additional Impressions: Electrolyte abnormality Fatigue Disposition: 09 ADMITTED INPATIENT Admitting Physician: Tim Mcclellan Referrals: TIM MCCLELLAN MD (PCP) Problem Qualifiers PROSPER YOUSIF APRN Oct 24, 2018 16:39
[2018-10-24 16:40] LABS: BASO % 0 % (0-3); EOS # 0.1 x10^3/uL (0.0-0.7); EOS % 1 % (0-3); HEMATOCRIT 45.8 % (39.0-53.0); HEMOGLOBIN 15.5 g/dL (13.0-17.5); LYMPH # 1.7 x10^3/uL (1.0-4.8); LYMPH % 19 % (24-48); MEAN CORPUSCULAR HEMOGLOBIN 32 pg (25-35); MEAN CORPUSCULAR HGB CONC 34 g/dL (31-37); MEAN CORPUSCULAR VOLUME 94 fL (79-100); MONO # 0.8 x10^3/uL (0.0-1.1); MONO % 9 % (0-9); NEUT # 6.6 x10^3uL (1.8-7.7); NEUT % 71 % (31-73); PLATELET COUNT 361 x10^3/uL (140-400); RED BLOOD COUNT 4.86 x10^6/uL (4.30-5.70); RED CELL DISTRIBUTION WIDTH 15.3 % (11.5-14.5); WHITE BLOOD COUNT 9.3 x10^3/uL (4.0-11.0)
[2018-10-24 16:57] LABS: CALCIUM 9.6 mg/dL (8.5-10.1); CREATININE 2.1 mg/dL (0.7-1.3); GFR 31.7; POTASSIUM 5.5 mmol/L (3.5-5.1)
[2018-10-24 17:04] LABS: ALBUMIN 3.3 g/dL (3.4-5.0); ALBUMIN/GLOBULIN RATIO 0.8 (1.0-1.7); MAGNESIUM 2.8 mg/dL (1.8-2.4); TOTAL BILIRUBIN 0.3 mg/dL (0.2-1.0); TOTAL PROTEIN 7.3 g/dL (6.4-8.2)
[2018-10-24 17:10] LABS: CREATINE KINASE 49 U/L (39-308)
--- NOTE | 2018-10-24 17:43 | RAD ---
EXAM: Chest, 2 views. HISTORY: Dyspnea on exertion. COMPARISON: 01/29/2017 FINDINGS: 2 views of the chest are obtained. There is no infiltrate, pleural effusion or pneumothorax. The heart is normal in size. IMPRESSION: No acute pulmonary finding. Electronically signed by: Karen Mccormick MD (10/24/2018 5:40 PM) [facility]
[2018-10-24] MEDS ORDERED: IV NORMAL SALINE 1000ML BAG 1,000 ML IV ONE (18:15)
--- NOTE | 2018-10-24 19:00 | NUR ---
The patient, TELMA EID, 68 y/o, M admitted by PIPER HERNANDEZ MD, was given written information regarding hospital policies, unit procedures and contact persons. Patient had gone to [facility] later part of last week and today the doctor office called patient and told him to go the ED at [place] due to labs ARF and electrolyte abnormalities. Admission assessment performed, admission information obtained. Consent for Echo and procedures performed at since 2018 obtained and faxed to . Wound pictures obtained, wound care consulted. RN will continue to monitor. Valuables were checked and patient has a cane, does not wear jewelry.
[2018-10-24 19:50] VITALS: BP 123/77
[2018-10-24 20:10] LABS: BILIRUBIN,URINE NEGATIVE (NEG); CLARITY,URINE CLEAR; COLOR,URINE YELLOW; NITRITE,URINE NEGATIVE (NEG); PROTEIN,URINE NEGATIVE (NEG-TRACE); UROBILINOGEN,URINE 0.2 mg/dL (0.2 mg/dL)
[2018-10-24 20:28] LABS: RBC,URINE 0 /HPF (0-2)
[2018-10-24 20:29] LABS: BACTERIA,URINE 0 /HPF (0-FEW); HYALINE CASTS, URINE OCCASIONAL /HPF; SQUAMOUS EPITHELIAL CELL,UR OCC /LPF
--- NOTE | 2018-10-24 22:30 | NUR ---
Patient denied pain on admission. Patient and did not bring medication list and did not know by memory what medications the patient takes at home. Mr. Coto stated he doesn't take a lot of medications only Levothyroxine but did not know dose. RN reviewed past history and attempted to secure information from [facility] where patient stated they fill prescriptions without success. RN printed past home medication list and gave to patient and his to identify what he takes at home. They selected 3 medications, Levothyroxine, Hydrocodone, as well as Metolazone that was just started. RN entered as reviewed with reconciliation of medications.
[2018-10-24 23:25] VITALS: BP 111/69
--- NOTE | 2018-10-24 23:55 | NUR ---
Patient stated he hasn't had any pain medicine for 12 hours and has complaints of pain in BLE that is off the chart. RN called hydro electric station operator Doctor Mar to start his home medication. Dr Mar did order what home medications the patient had as history as home medication. RN ordered to resume and sent to pharmacy. RN will continue to monitor.
[2018-10-25] MEDS: HYDROcodone/APAP 10/325 1 TAB TABLET PO PRN ×4 (00:36→18:08)
[2018-10-25 03:40] VITALS: BP 121/75
[2018-10-25] MEDS: LEVOTHYROXINE 175 MCG TABLET PO SCH (05:46)
--- NOTE | 2018-10-25 06:00 | EKG ---
[facility] [address] [place] [address] Test Date: 2018-10-24 Test Time: 15:47:57 Pat Name: TELMA EID Department: Room: Gender: M Loom Setter: : 1950 Requested By: PROSPER YOUSIF Order Number: [id number] Reading MD: Measurements Intervals Eckert Rate: 93 P: OR: QRS: -8 QRSD: 68 T: 26 QT: 322 QTc: 402 Interpretive Statements ATRIAL FIBRILLATION LEFTWARD AXIS QRS(T) CONTOUR ABNORMALITY CONSISTENT WITH INFERIOR INFARCT PROBABLY OLD ABNORMAL ECG No previous ECG available for comparison
[2018-10-25 06:13] LABS: BASO % 1 % (0-3); EOS # 0.1 x10^3/uL (0.0-0.7); EOS % 2 % (0-3); HEMATOCRIT 47.7 % (39.0-53.0); HEMOGLOBIN 15.9 g/dL (13.0-17.5); LYMPH # 2.1 x10^3/uL (1.0-4.8); LYMPH % 33 % (24-48); MEAN CORPUSCULAR HEMOGLOBIN 32 pg (25-35); MEAN CORPUSCULAR HGB CONC 33 g/dL (31-37); MEAN CORPUSCULAR VOLUME 95 fL (79-100); MONO # 0.8 x10^3/uL (0.0-1.1); MONO % 12 % (0-9); NEUT # 3.4 x10^3uL (1.8-7.7); NEUT % 53 % (31-73); PLATELET COUNT 349 x10^3/uL (140-400); RED CELL DISTRIBUTION WIDTH 15.4 % (11.5-14.5); WHITE BLOOD COUNT 6.4 x10^3/uL (4.0-11.0)
[2018-10-25 06:41] LABS: ALBUMIN 3.3 g/dL (3.4-5.0); ALBUMIN/GLOBULIN RATIO 0.7 (1.0-1.7); CALCIUM 9.8 mg/dL (8.5-10.1); CREATININE 1.8 mg/dL (0.7-1.3); GFR 37.8; TOTAL BILIRUBIN 0.7 mg/dL (0.2-1.0)
[2018-10-25 06:45] LABS: POTASSIUM 5.4 mmol/L (3.5-5.1)
[2018-10-25 07:39] VITALS: BP 115/71
[2018-10-25] MEDS ORDERED: IV NORMAL SALINE 1000ML BAG 1,000 ML IV SCH (09:30)
--- NOTE | 2018-10-25 09:37 | PDOC2 ---
JF LARA APPRENTICE PAINTER NECKTIES 10/25/18 0936: CARDIAC CONSULT DATE OF CONSULT Date of Consult DATE: 10/25/18 TIME: 09:33 REASON FOR CONSULT Reason for Consult: AFIB Hyperkalemia REFERRING PHYSICIAN Referring Physician: Dr. Ayers SOURCE Source: Chart review, Patient HISTORY OF PRESENT ILLNESS HISTORY OF PRESENT ILLNESS This is a 68 yo male, with a history of persistent AFIB, diastolic HF, and chronic lymphedema, who presented secondary to hyperkalemia. Had routine labs drawn last week with PCP; potassium noted to be elevated and patient was told to go to the ED for further evaluation and treatment. Recent admission at 09/19/18- for FIGUEROA/hyperkalemia. Was treated with IVFs. Has echo that showed preserved LV systolic function. History of persistent AFIB. Reports he was on anticoagulation therapy with both warfarin ad Eliquis at one time. States both made him "sick". Specifically, weak/tired. Was on metoprolol for rate control as well, but this caused him to be more weak/tired and rash. Does not follow with scene shifter. PAST MEDICAL HISTORY Cardiovascular: AFIB, CHF, Other (LE lymphedema ) GI: GERD Musculoskeletal: Osteoarthritis Endocrine: Hypothyroidism PAST SURGICAL HISTORY Past Surgical History: No pertinent history FAMILY HISTORY Family History: Heart Disease, Hypertension SOCIAL HISTORY Smoke: No ALCOHOL: none Drugs: None Lives: with Family CURRENT MEDICATIONS CURRENT MEDICATIONS Current Medications Medications (Trade) Dose Ordered Sig/Melyssa Route PRN Reason Start Time Stop Time Status Last Admin Dose Admin Sodium Chloride 1,000 ml @ 80 mls/hr 1X ONCE IV 10/24/18 18:15 10/25/18 06:44 DC 10/24/18 18:50 Levothyroxine Sodium (Synthroid) 175 mcg DAILY06 PO 10/25/18 06:00 10/25/18 05:46 Acetaminophen/ Hydrocodone Bitart (Lortab 10/325) 1 tab PRN Q4HRS PRN PO PAIN 10/25/18 00:00 10/25/18 09:13 DC 10/25/18 07:55 ALLERGIES ALLERGIES: Coded Allergies: No Known Drug Allergies (Unverified , 10/24/18) ROS Review of System 14 point ROS conducted with pertinent positives noted above in HPI. PHYSICAL EXAM PHYSICAL EXAM General: Alert, Oriented X3, Cooperative, mild distress HEENT: Atraumatic, Mucous membr. moist/pink Lungs: CTA, Other (diminished throughout) Heart: Normal S1, Normal S2, Other (IRRR: AFIB- rate near 90) Abdomen: Soft, No tenderness, Other (obese ) Extremities: Normal pulses, Other (significant bi LE lymphedema, stocking ) Skin: No breakdown, No significant lesion Neuro: Normal speech, Sensation intact Psych/Mental Status: Mental status NL, Mood NL MUSCULOSKELETAL: Osteoarthritic changes both hands VITALS VITALS Vital Signs Date Time Temp Pulse Resp B/P (MAP) Pulse Ox O2 Delivery O2 Flow Rate FiO2 10/25/18 08:56 Room Air 10/25/18 07:39 98.6 88 17 115/71 (86) 95 98.6 LABS Lab: Laboratory Tests Test 10/24/18 16:30 10/24/18 18:50 10/25/18 05:33 White Blood Count 9.3 x10^3/uL (4.0-11.0) 6.4 x10^3/uL (4.0-11.0) Red Blood Count 4.86 x10^6/uL (4.30-5.70) 5.00 x10^6/uL (4.30-5.70) Hemoglobin 15.5 g/dL (13.0-17.5) 15.9 g/dL (13.0-17.5) Hematocrit 45.8 % (39.0-53.0) 47.7 % (39.0-53.0) Mean Corpuscular Volume 94 fL (79-100) 95 fL (79-100) Mean Corpuscular Hemoglobin 32 pg (25-35) 32 pg (25-35) Mean Corpuscular Hemoglobin Concent 34 g/dL (31-37) 33 g/dL (31-37) Red Cell Distribution Width 15.3 % (11.5-14.5) 15.4 % (11.5-14.5) Platelet Count 361 x10^3/uL (140-400) 349 x10^3/uL (140-400) Neutrophils (%) (Auto) 71 % (31-73) 53 % (31-73) Lymphocytes (%) (Auto) 19 % (24-48) 33 % (24-48) Monocytes (%) (Auto) 9 % (0-9) 12 % (0-9) Eosinophils (%) (Auto) 1 % (0-3) 2 % (0-3) Basophils (%) (Auto) 0 % (0-3) 1 % (0-3) Neutrophils # (Auto) 6.6 x10^3uL (1.8-7.7) 3.4 x10^3uL (1.8-7.7) Lymphocytes # (Auto) 1.7 x10^3/uL (1.0-4.8) 2.1 x10^3/uL (1.0-4.8) Monocytes # (Auto) 0.8 x10^3/uL (0.0-1.1) 0.8 x10^3/uL (0.0-1.1) Eosinophils # (Auto) 0.1 x10^3/uL (0.0-0.7) 0.1 x10^3/uL (0.0-0.7) Basophils # (Auto) 0.0 x10^3/uL (0.0-0.2) 0.0 x10^3/uL (0.0-0.2) Sodium Level 126 mmol/L (136-145) 127 mmol/L (136-145) Potassium Level 5.5 mmol/L (3.5-5.1) 5.4 mmol/L (3.5-5.1) Chloride Level 93 mmol/L (98-107) 94 mmol/L (98-107) Carbon Dioxide Level 20 mmol/L (21-32) 20 mmol/L (21-32) Anion Gap 13 (6-14) 13 (6-14) Blood Urea Nitrogen 68 mg/dL (8-26) 59 mg/dL (8-26) Creatinine 2.1 mg/dL (0.7-1.3) 1.8 mg/dL (0.7-1.3) Estimated GFR (Cockcroft-Gault) 31.7 37.8 BUN/Creatinine Ratio 32 (6-20) 33 (6-20) Glucose Level 132 mg/dL (70-99) 118 mg/dL (70-99) Calcium Level 9.6 mg/dL (8.5-10.1) 9.8 mg/dL (8.5-10.1) Magnesium Level 2.8 mg/dL (1.8-2.4) Total Bilirubin 0.3 mg/dL (0.2-1.0) 0.7 mg/dL (0.2-1.0) Aspartate Amino Transf (AST/SGOT) 24 U/L (15-37) 25 U/L (15-37) Alanine Aminotransferase (ALT/SGPT) 26 U/L (16-63) 27 U/L (16-63) Alkaline Phosphatase 60 U/L (46-116) 47 U/L (46-116) Creatine Kinase 49 U/L (39-308) Creatine Kinase MB (Mass) 1.0 ng/mL (0.0-3.6) Creatine Kinase MB Relative Index % (0-4) Troponin I Quantitative < 0.017 ng/mL (0.000-0.055) Total Protein 7.3 g/dL (6.4-8.2) 8.0 g/dL (6.4-8.2) Albumin 3.3 g/dL (3.4-5.0) 3.3 g/dL (3.4-5.0) Albumin/Globulin Ratio 0.8 (1.0-1.7) 0.7 (1.0-1.7) Urine Color Yellow Urine Clarity Clear Urine pH 5.0 Urine Specific [place] 1.020 Urine Protein Negative mg/dL (NEG-TRACE) Urine Glucose (UA) Negative mg/dL (NEG) Urine Ketones (Stick) Negative mg/dL (NEG) Urine Blood Negative (NEG) Urine Nitrite Negative (NEG) Urine Bilirubin Negative (NEG) Urine Urobilinogen Dipstick 0.2 mg/dL (0.2 mg/dL) Urine Leukocyte Esterase Negative (NEG) Urine RBC 0 /HPF (0-2) Urine WBC 1-4 /HPF (0-4) Urine Squamous Epithelial Cells Occ /LPF Urine Bacteria 0 /HPF (0-FEW) Urine Hyaline Casts Occasional /HPF Urine Mucus Mod /LPF ECHOCARDIOGRAM ECHOCARDIOGRAM <Conclusion> The left ventricular systolic function is normal and the ejection fraction is within normal range. The Ejection Fraction is 50-55%. The right ventricle appears dilated. Systolic function appears grossly normal. There is no evidence of significant pericardial effusion. Technically very difficult study due to morbid obesity. DATE: 12/01/16 1038 Echo 08/3018 at Technically difficult study; i.v. transpulmonary contrast was used to define the endocardial borders. Normal left ventricular systolic function, estimated ejection fraction is 55%. The valvular structures are poorly visualized. Estimated Peak Systolic PA Pressure 36 mmHg The underlying rhythm is atrial fibrillation. ASSESSMENT/PLAN ASSESSMENT/PLAN 1. FIGUEROA 2. Hyperkalemia 4. Hyponatremia 5. Acute on chronic diastolic heart failure. Echo 09/09 with preserved LV systolic function 6. Persistent AFIB; on ASA for stroke prevention. No rate controlling agents or OAC as they make him "sick" 7. Hypothyroidism; on replacement 8. Chronic LE lymphedema Recommendations Continue ASA Monitor HR. Follow renal recs Consider RHC when renal function better ROGER AYERS MD 10/25/18 2242: CARDIAC CONSULT ASSESSMENT/PLAN ASSESSMENT/PLAN Pt. seen and examined. Agree with above HEEL TOP LIFT SPLITTER note with following comments/changes: 68 y.o chronically ill man with severe lymphedema that is refractory to prior compression therapy He has FIGUEROA. Likely needs diuresis but given his FIGUEROA, would be better served with a swan guided diuresis. Will discuss with nephrology, his BNP is likely low due to his obesity. Poor [facility] prognosis. Could also consider CT venogram to rule out central venous obstruction JF LARA APRN Oct 25, 2018 09:36 ROGER AYERS MD Oct 25, 2018 22:42
--- NOTE | 2018-10-25 10:00 | NUR ---
Patient in AFIB on monitor, noted to be chronic for patient. Rate fluctuates-occasionally going greater than 100. RN discussed with Dr. Mar, gave ok to put in cardiology consult.
[2018-10-25 10:43] VITALS: BP 118/78
[2018-10-25] MEDS: ASPIRIN CHEWABLE 81 MG TABLET. PO SCH (11:07)
--- NOTE | 2018-10-25 11:29 | PDOC1 ---
History and Physical Date of Admission Date of Admission 10/24/18 Identification/Chief Complaint Chief Complaint sent to ER by Dr. Mcclellan due to abnormal labs Source Source: Caregiver, Chart review, Patient History of Present Illness History of Present Illness He was recently hospitalized at ([place]) with leg wounds treated with Levaquin, low sodium and given Saline IV and improved, he has also been treated for ongoing leg wounds and he is now hyperkalemic, hyponatremic and in renal failure. He has a f/u 10/[address] Mcclellan and labs were drawn and she called him yesterday as they were abnormal as above and had him come to ER for reassessment of them and likely admission. He has also been in Afib but metoprolol caused a rash so he stopped it, blood thinners made him feel tired so he stopped them, he has a hx of hypothyroidism but not taken meds recently, he has narcotic dependency for chronic pain Past Medical History Cardiovascular: AFIB, CHF, Other (LE lymphedema ) Pulmonary: No pertinent hx GI: GERD Heme/Onc: No pertinent hx Rheumatologic: Other (OA) ENT: Other (ear infections) Endocrine: Hypothyroidism Past Surgical History Past Surgical History: Other (tumor removed from right cheek 1989) Family History Family History: Cancer (leukemia, throat cancer), Chronic Bronchitis, Heart Disease, Hypertension Social History Smoke: No ALCOHOL: rare Drugs: None Current Problem List Problem List Problems Medical Problems: (1) Acute renal injury Status: Acute (2) Electrolyte abnormality Status: Acute (3) Fatigue Status: Acute Current Medications Current Medications Current Medications Medications (Trade) Dose Ordered Sig/Melyssa Start Time Stop Time Status Last Admin Dose Admin Acetaminophen/ Hydrocodone Bitart (Lortab 10/325) 2 tab PRN Q4HRS PRN 10/25/18 09:15 Levothyroxine Sodium (Synthroid) 175 mcg DAILY06 10/25/18 06:00 10/25/18 05:46 175 MCG Metolazone (Zaroxolyn) 2.5 mg QODAY 10/26/18 09:00 Sodium Chloride 1,000 ml @ 100 mls/hr Q10H 10/25/18 09:30 10/25/18 09:41 100 MLS/HR Allergies Allergies Allergies Coded Allergies Type Severity Reaction Last Updated Verified No Known Drug Allergies 10/24/18 No ROS Review of System CONSTITUTIONAL: No fever or chills, positive for fatigue EYES: No recent changes SKIN: chronic lymphedema of lower extremities CARDIOVASCULAR: No chest pain, syncope, palpitations, or edema RESPIRATORY: No SOB or cough GASTROINTESTINAL: No nausea, vomiting or abdominal pain NEUROLOGICAL: No headaches or weakness but feels fatigued ENDOCRINE: No cold or heat intolerance GENITOURINARY: No urgency or frequency of urination MUSCULOSKELETAL: + generalized back and joint pain LYMPHATICS: No enlarged lymph nodes PSYCHIATRIC: No anxiety or depression Physical Exam Physical Exam GEN.: No apparent distress. Alert and oriented. HEENT: Head is normocephalic, atraumatic NECK: Supple. LUNGS: Clear to auscultation. HEART: irreg irreg, rate controlled, S1, S2 present. Peripheral pulses intact ABDOMEN: Soft, nontender. Positive bowel sounds. EXTREMITIES: bilateral lymphedema. NEUROLOGIC: Normal speech, normal tone PSYCHIATRIC: Normal affect, normal mood. SKIN: + LE ulcerations bandaged but weeping Vitals Vitals Vital Signs Date Time Temp Pulse Resp B/P (MAP) Pulse Ox O2 Delivery O2 Flow Rate FiO2 10/25/18 10:43 98.4 91 17 118/78 (91) 95 Room Air 98.4 Labs Labs Laboratory Tests Test 10/24/18 16:30 10/24/18 18:50 10/25/18 05:33 White Blood Count 9.3 x10^3/uL (4.0-11.0) 6.4 x10^3/uL (4.0-11.0) Red Blood Count 4.86 x10^6/uL (4.30-5.70) 5.00 x10^6/uL (4.30-5.70) Hemoglobin 15.5 g/dL (13.0-17.5) 15.9 g/dL (13.0-17.5) Hematocrit 45.8 % (39.0-53.0) 47.7 % (39.0-53.0) Mean Corpuscular Volume 94 fL (79-100) 95 fL (79-100) Mean Corpuscular Hemoglobin 32 pg (25-35) 32 pg (25-35) Mean Corpuscular Hemoglobin Concent 34 g/dL (31-37) 33 g/dL (31-37) Red Cell Distribution Width 15.3 % (11.5-14.5) 15.4 % (11.5-14.5) Platelet Count 361 x10^3/uL (140-400) 349 x10^3/uL (140-400) Neutrophils (%) (Auto) 71 % (31-73) 53 % (31-73) Lymphocytes (%) (Auto) 19 % (24-48) 33 % (24-48) Monocytes (%) (Auto) 9 % (0-9) 12 % (0-9) Eosinophils (%) (Auto) 1 % (0-3) 2 % (0-3) Basophils (%) (Auto) 0 % (0-3) 1 % (0-3) Neutrophils # (Auto) 6.6 x10^3uL (1.8-7.7) 3.4 x10^3uL (1.8-7.7) Lymphocytes # (Auto) 1.7 x10^3/uL (1.0-4.8) 2.1 x10^3/uL (1.0-4.8) Monocytes # (Auto) 0.8 x10^3/uL (0.0-1.1) 0.8 x10^3/uL (0.0-1.1) Eosinophils # (Auto) 0.1 x10^3/uL (0.0-0.7) 0.1 x10^3/uL (0.0-0.7) Basophils # (Auto) 0.0 x10^3/uL (0.0-0.2) 0.0 x10^3/uL (0.0-0.2) Sodium Level 126 mmol/L (136-145) 127 mmol/L (136-145) Potassium Level 5.5 mmol/L (3.5-5.1) 5.4 mmol/L (3.5-5.1) Chloride Level 93 mmol/L (98-107) 94 mmol/L (98-107) Carbon Dioxide Level 20 mmol/L (21-32) 20 mmol/L (21-32) Anion Gap 13 (6-14) 13 (6-14) Blood Urea Nitrogen 68 mg/dL (8-26) 59 mg/dL (8-26) Creatinine 2.1 mg/dL (0.7-1.3) 1.8 mg/dL (0.7-1.3) Estimated GFR (Cockcroft-Gault) 31.7 37.8 BUN/Creatinine Ratio 32 (6-20) 33 (6-20) Glucose Level 132 mg/dL (70-99) 118 mg/dL (70-99) Calcium Level 9.6 mg/dL (8.5-10.1) 9.8 mg/dL (8.5-10.1) Magnesium Level 2.8 mg/dL (1.8-2.4) Total Bilirubin 0.3 mg/dL (0.2-1.0) 0.7 mg/dL (0.2-1.0) Aspartate Amino Transf (AST/SGOT) 24 U/L (15-37) 25 U/L (15-37) Alanine Aminotransferase (ALT/SGPT) 26 U/L (16-63) 27 U/L (16-63) Alkaline Phosphatase 60 U/L (46-116) 47 U/L (46-116) Creatine Kinase 49 U/L (39-308) Creatine Kinase MB (Mass) 1.0 ng/mL (0.0-3.6) Creatine Kinase MB Relative Index % (0-4) Troponin I Quantitative < 0.017 ng/mL (0.000-0.055) Total Protein 7.3 g/dL (6.4-8.2) 8.0 g/dL (6.4-8.2) Albumin 3.3 g/dL (3.4-5.0) 3.3 g/dL (3.4-5.0) Albumin/Globulin Ratio 0.8 (1.0-1.7) 0.7 (1.0-1.7) Urine Color Yellow Urine Clarity Clear Urine pH 5.0 Urine Specific [place] 1.020 Urine Protein Negative mg/dL (NEG-TRACE) Urine Glucose (UA) Negative mg/dL (NEG) Urine Ketones (Stick) Negative mg/dL (NEG) Urine Blood Negative (NEG) Urine Nitrite Negative (NEG) Urine Bilirubin Negative (NEG) Urine Urobilinogen Dipstick 0.2 mg/dL (0.2 mg/dL) Urine Leukocyte Esterase Negative (NEG) Urine RBC 0 /HPF (0-2) Urine WBC 1-4 /HPF (0-4) Urine Squamous Epithelial Cells Occ /LPF Urine Bacteria 0 /HPF (0-FEW) Urine Hyaline Casts Occasional /HPF Urine Mucus Mod /LPF Laboratory Tests Test 10/24/18 16:30 10/24/18 18:50 10/25/18 05:33 White Blood Count 9.3 x10^3/uL (4.0-11.0) 6.4 x10^3/uL (4.0-11.0) Red Blood Count 4.86 x10^6/uL (4.30-5.70) 5.00 x10^6/uL (4.30-5.70) Hemoglobin 15.5 g/dL (13.0-17.5) 15.9 g/dL (13.0-17.5) Hematocrit 45.8 % (39.0-53.0) 47.7 % (39.0-53.0) Mean Corpuscular Volume 94 fL (79-100) 95 fL (79-100) Mean Corpuscular Hemoglobin 32 pg (25-35) 32 pg (25-35) Mean Corpuscular Hemoglobin Concent 34 g/dL (31-37) 33 g/dL (31-37) Red Cell Distribution Width 15.3 % (11.5-14.5) 15.4 % (11.5-14.5) Platelet Count 361 x10^3/uL (140-400) 349 x10^3/uL (140-400) Neutrophils (%) (Auto) 71 % (31-73) 53 % (31-73) Lymphocytes (%) (Auto) 19 % (24-48) 33 % (24-48) Monocytes (%) (Auto) 9 % (0-9) 12 % (0-9) Eosinophils (%) (Auto) 1 % (0-3) 2 % (0-3) Basophils (%) (Auto) 0 % (0-3) 1 % (0-3) Neutrophils # (Auto) 6.6 x10^3uL (1.8-7.7) 3.4 x10^3uL (1.8-7.7) Lymphocytes # (Auto) 1.7 x10^3/uL (1.0-4.8) 2.1 x10^3/uL (1.0-4.8) Monocytes # (Auto) 0.8 x10^3/uL (0.0-1.1) 0.8 x10^3/uL (0.0-1.1) Eosinophils # (Auto) 0.1 x10^3/uL (0.0-0.7) 0.1 x10^3/uL (0.0-0.7) Basophils # (Auto) 0.0 x10^3/uL (0.0-0.2) 0.0 x10^3/uL (0.0-0.2) Sodium Level 126 mmol/L (136-145) 127 mmol/L (136-145) Potassium Level 5.5 mmol/L (3.5-5.1) 5.4 mmol/L (3.5-5.1) Chloride Level 93 mmol/L (98-107) 94 mmol/L (98-107) Carbon Dioxide Level 20 mmol/L (21-32) 20 mmol/L (21-32) Anion Gap 13 (6-14) 13 (6-14) Blood Urea Nitrogen 68 mg/dL (8-26) 59 mg/dL (8-26) Creatinine 2.1 mg/dL (0.7-1.3) 1.8 mg/dL (0.7-1.3) Estimated GFR (Cockcroft-Gault) 31.7 37.8 BUN/Creatinine Ratio 32 (6-20) 33 (6-20) Glucose Level 132 mg/dL (70-99) 118 mg/dL (70-99) Calcium Level 9.6 mg/dL (8.5-10.1) 9.8 mg/dL (8.5-10.1) Magnesium Level 2.8 mg/dL (1.8-2.4) Total Bilirubin 0.3 mg/dL (0.2-1.0) 0.7 mg/dL (0.2-1.0) Aspartate Amino Transf (AST/SGOT) 24 U/L (15-37) 25 U/L (15-37) Alanine Aminotransferase (ALT/SGPT) 26 U/L (16-63) 27 U/L (16-63) Alkaline Phosphatase 60 U/L (46-116) 47 U/L (46-116) Creatine Kinase 49 U/L (39-308) Creatine Kinase MB (Mass) 1.0 ng/mL (0.0-3.6) Creatine Kinase MB Relative Index % (0-4) Troponin I Quantitative < 0.017 ng/mL (0.000-0.055) Total Protein 7.3 g/dL (6.4-8.2) 8.0 g/dL (6.4-8.2) Albumin 3.3 g/dL (3.4-5.0) 3.3 g/dL (3.4-5.0) Albumin/Globulin Ratio 0.8 (1.0-1.7) 0.7 (1.0-1.7) Urine Color Yellow Urine Clarity Clear Urine pH 5.0 Urine Specific [place] 1.020 Urine Protein Negative mg/dL (NEG-TRACE) Urine Glucose (UA) Negative mg/dL (NEG) Urine Ketones (Stick) Negative mg/dL (NEG) Urine Blood Negative (NEG) Urine Nitrite Negative (NEG) Urine Bilirubin Negative (NEG) Urine Urobilinogen Dipstick 0.2 mg/dL (0.2 mg/dL) Urine Leukocyte Esterase Negative (NEG) Urine RBC 0 /HPF (0-2) Urine WBC 1-4 /HPF (0-4) Urine Squamous Epithelial Cells Occ /LPF Urine Bacteria 0 /HPF (0-FEW) Urine Hyaline Casts Occasional /HPF Urine Mucus Mod /LPF Images Images EXAM: Chest, 2 views. HISTORY: Dyspnea on exertion. COMPARISON: 01/29/2017 FINDINGS: 2 views of the chest are obtained. There is no infiltrate, pleural effusion or pneumothorax. The heart is normal in size. IMPRESSION: No acute pulmonary finding. VTE Prophylaxis Ordered VTE Prophylaxis Devices: Contraindicated VTE Pharmacological Prophylaxi: Yes Assessment/Plan Assessment/Plan hyponatremia - IV saline, renal consult hyperkalemia - IV saline, renal consult chronic Afib - cardiology consult lymphedema of lower extremities - wound care consult bilateral leg ulcers without PAD per prior imaging at [facility] - wound care consult FIGUEROA vs CKD - renal consult hypothyroidism, currently untreated, reassess TSH OA with chronic pain and narcotic dependency Isa PITTS MD Oct 25, 2018 11:29
--- NOTE | 2018-10-25 11:46 | PDOC2 ---
CONSULT Date of Consult Date of Consult DATE: 10/25/18 TIME: 11:46 Reason for Consult Reason for Consult: Hyponatremia, FIGUEROA Identification/Chief Complaint Chief Complaint Denies any complaints History of Present Illness Reason for Visit: This is a 68 yo C male, with a history of persistent AFIB, diastolic HF, and chronic lymphedema, whos hospitalized due to abnormal labs with PCP Recent admission at 09/19/18- for FIGUEROA/hyperkalemia. Was treated with IVFs. Has echo that showed preserved LV systolic function. History of persistent AFIB. Reports he was on anticoagulation therapy with both warfarin ad Eliquis at one time. States both made him "sick". Specifically, weak/tired. Was on metoprolol for rate control as well, but this caused him to be more weak/tired and rash. 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 Currently he denies any symptoms. He adjusts his meds on his own as above. His Home med list shows Lasix, Metolazone, he doesnt take it. Denies Hx of CHF, No Liver failure. Reports has been on Levothyroxine for many years. Non Smoker. Denies any OTC meds. denies Polydipsia. No urinary complaints Past Medical History Cardiovascular: AFIB, CHF, Other (LE lymphedema ) Pulmonary: No pertinent hx GI: GERD Heme/Onc: No pertinent hx Musculoskeletal: Osteoarthritis Rheumatologic: Other (OA) ENT: Other (ear infections) Endocrine: Hypothyroidism Past Surgical History Past Surgical History: Other (tumor removed from right cheek 1989) Family History Family History: Cancer (leukemia, throat cancer), Chronic Bronchitis, Heart Disease, Hypertension Social History No ALCOHOL: rare Drugs: None Lives: with Family Current Problem List Problem List Problems Medical Problems: (1) Acute renal injury Status: Acute (2) Electrolyte abnormality Status: Acute (3) Fatigue Status: Acute Current Medications Current Medications Current Medications Sodium Chloride 1,000 ml @ 80 mls/hr 1X ONCE IV Last administered on 10/24/18at 18:50; Start 10/24/18 at 18:15; Stop 10/25/18 at 06:44; Status DC Levothyroxine Sodium (Synthroid) 175 mcg DAILY06 PO Last administered on 10/25/18at 05:46; Start 10/25/18 at 06:00 Acetaminophen/ Hydrocodone Bitart (Lortab 10/325) 1 tab PRN Q4HRS PRN PO PAIN Last administered on 10/25/18at 07:55; Start 10/25/18 at 00:00; Stop 10/25/18 at 09:13; Status DC Metolazone (Zaroxolyn) 2.5 mg QODAY PO ; Start 10/26/18 at 09:00 Sodium Chloride 1,000 ml @ 100 mls/hr Q10H IV Last administered on 10/25/18at 09:41; Start 10/25/18 at 09:30 Acetaminophen/ Hydrocodone Bitart (Lortab 10/325) 2 tab PRN Q4HRS PRN PO PAIN Last administered on 10/25/18at 11:08; Start 10/25/18 at 09:15 Aspirin (Children'S Aspirin) 81 mg DAILYWBKFT PO Last administered on 10/25/18at 11:07; Start 10/25/18 at 11:30 Active Scripts Active Klor-Con M20 (Potassium Chloride) 20 Meq Tab.er.prt 20 Meq PO DAILYWBKFT 30 Days Metoprolol Tartrate 25 Mg Tablet 50 Mg PO BID 30 Days Furosemide 40 Mg Tablet 40 Mg PO DAILY 30 Days Atorvastatin Calcium 10 Mg Tablet 10 Mg PO QHS 30 Days Eliquis (Apixaban) 5 Mg Tablet 10 Mg PO BID 30 Days Cyclobenzaprine Hcl 10 Mg Tablet 10 Mg PO TID PRN 30 Days Reported Metolazone 2.5 Mg Tablet 2.5 Mg PO QODAY Tramadol Hcl 50 Mg Tablet 50 Mg PO Q6H PRN Lortab 10-325 mg Tablet (Hydrocodone/Acetaminophen) 1 Each Tablet 1 Tab PO PRN Q4HRS PRN Levothyroxine Sodium 175 Mcg Tablet 175 Mcg PO DAILYAC Allergies Allergies: Coded Allergies: No Known Drug Allergies (Unverified , 10/24/18) ROS Review of System Per HPI Physical Exam Physical Exam GEN.: No apparent distress. Sitting up , Morbidly Obese HEENT: OM moist NECK: Supple. LUNGS: Clear to auscultation. HEART: irreg irreg, rate controlled, S1, S2 present. Peripheral pulses intact ABDOMEN: Soft, nontender. Positive bowel sounds. EXTREMITIES: bilateral lymphedema. NEUROLOGIC: Normal speech, normal tone PSYCHIATRIC: Normal affect, normal mood. SKIN: + LE ulcerations bandaged but weeping Vital Signs Vital Signs Date Time Temp Pulse Resp B/P (MAP) Pulse Ox O2 Delivery O2 Flow Rate FiO2 10/25/18 11:08 Room Air 10/25/18 10:43 98.4 91 17 118/78 (91) 95 98.4 Assessment & Plan FIGUEROA - Baseline Unknown , eGFR low during Hosp at [facility] 1 mo ago On IV NS since admission, Renal function stable Hyponatremia-asymptomatic TSH pending hold metolazone Check Ur Lytes, Ur and serum Osm Repeat labs with lose monitoring, If Na Low, will Hold IV NS Hyperkalemia-Mild, Monitor Acute on chronic diastolic heart failure. Echo 09/09 with preserved LV systolic function Persistent AFIB; on ASA for stroke prevention. Hypothyroidism; on replacement Chronic LE lymphedema Discussed with Pt, and RN Labs Labs Laboratory Tests Test 10/24/18 16:30 10/24/18 18:50 10/25/18 05:33 White Blood Count 9.3 x10^3/uL (4.0-11.0) 6.4 x10^3/uL (4.0-11.0) Red Blood Count 4.86 x10^6/uL (4.30-5.70) 5.00 x10^6/uL (4.30-5.70) Hemoglobin 15.5 g/dL (13.0-17.5) 15.9 g/dL (13.0-17.5) Hematocrit 45.8 % (39.0-53.0) 47.7 % (39.0-53.0) Mean Corpuscular Volume 94 fL (79-100) 95 fL (79-100) Mean Corpuscular Hemoglobin 32 pg (25-35) 32 pg (25-35) Mean Corpuscular Hemoglobin Concent 34 g/dL (31-37) 33 g/dL (31-37) Red Cell Distribution Width 15.3 % (11.5-14.5) 15.4 % (11.5-14.5) Platelet Count 361 x10^3/uL (140-400) 349 x10^3/uL (140-400) Neutrophils (%) (Auto) 71 % (31-73) 53 % (31-73) Lymphocytes (%) (Auto) 19 % (24-48) 33 % (24-48) Monocytes (%) (Auto) 9 % (0-9) 12 % (0-9) Eosinophils (%) (Auto) 1 % (0-3) 2 % (0-3) Basophils (%) (Auto) 0 % (0-3) 1 % (0-3) Neutrophils # (Auto) 6.6 x10^3uL (1.8-7.7) 3.4 x10^3uL (1.8-7.7) Lymphocytes # (Auto) 1.7 x10^3/uL (1.0-4.8) 2.1 x10^3/uL (1.0-4.8) Monocytes # (Auto) 0.8 x10^3/uL (0.0-1.1) 0.8 x10^3/uL (0.0-1.1) Eosinophils # (Auto) 0.1 x10^3/uL (0.0-0.7) 0.1 x10^3/uL (0.0-0.7) Basophils # (Auto) 0.0 x10^3/uL (0.0-0.2) 0.0 x10^3/uL (0.0-0.2) Sodium Level 126 mmol/L (136-145) 127 mmol/L (136-145) Potassium Level 5.5 mmol/L (3.5-5.1) 5.4 mmol/L (3.5-5.1) Chloride Level 93 mmol/L (98-107) 94 mmol/L (98-107) Carbon Dioxide Level 20 mmol/L (21-32) 20 mmol/L (21-32) Anion Gap 13 (6-14) 13 (6-14) Blood Urea Nitrogen 68 mg/dL (8-26) 59 mg/dL (8-26) Creatinine 2.1 mg/dL (0.7-1.3) 1.8 mg/dL (0.7-1.3) Estimated GFR (Cockcroft-Gault) 31.7 37.8 BUN/Creatinine Ratio 32 (6-20) 33 (6-20) Glucose Level 132 mg/dL (70-99) 118 mg/dL (70-99) Calcium Level 9.6 mg/dL (8.5-10.1) 9.8 mg/dL (8.5-10.1) Magnesium Level 2.8 mg/dL (1.8-2.4) Total Bilirubin 0.3 mg/dL (0.2-1.0) 0.7 mg/dL (0.2-1.0) Aspartate Amino Transf (AST/SGOT) 24 U/L (15-37) 25 U/L (15-37) Alanine Aminotransferase (ALT/SGPT) 26 U/L (16-63) 27 U/L (16-63) Alkaline Phosphatase 60 U/L (46-116) 47 U/L (46-116) Creatine Kinase 49 U/L (39-308) Creatine Kinase MB (Mass) 1.0 ng/mL (0.0-3.6) Creatine Kinase MB Relative Index % (0-4) Troponin I Quantitative < 0.017 ng/mL (0.000-0.055) Total Protein 7.3 g/dL (6.4-8.2) 8.0 g/dL (6.4-8.2) Albumin 3.3 g/dL (3.4-5.0) 3.3 g/dL (3.4-5.0) Albumin/Globulin Ratio 0.8 (1.0-1.7) 0.7 (1.0-1.7) Urine Color Yellow Urine Clarity Clear Urine pH 5.0 Urine Specific [place] 1.020 Urine Protein Negative mg/dL (NEG-TRACE) Urine Glucose (UA) Negative mg/dL (NEG) Urine Ketones (Stick) Negative mg/dL (NEG) Urine Blood Negative (NEG) Urine Nitrite Negative (NEG) Urine Bilirubin Negative (NEG) Urine Urobilinogen Dipstick 0.2 mg/dL (0.2 mg/dL) Urine Leukocyte Esterase Negative (NEG) Urine RBC 0 /HPF (0-2) Urine WBC 1-4 /HPF (0-4) Urine Squamous Epithelial Cells Occ /LPF Urine Bacteria 0 /HPF (0-FEW) Urine Hyaline Casts Occasional /HPF Urine Mucus Mod /LPF Laboratory Tests Test 10/24/18 16:30 10/24/18 18:50 10/25/18 05:33 White Blood Count 9.3 x10^3/uL (4.0-11.0) 6.4 x10^3/uL (4.0-11.0) Red Blood Count 4.86 x10^6/uL (4.30-5.70) 5.00 x10^6/uL (4.30-5.70) Hemoglobin 15.5 g/dL (13.0-17.5) 15.9 g/dL (13.0-17.5) Hematocrit 45.8 % (39.0-53.0) 47.7 % (39.0-53.0) Mean Corpuscular Volume 94 fL (79-100) 95 fL (79-100) Mean Corpuscular Hemoglobin 32 pg (25-35) 32 pg (25-35) Mean Corpuscular Hemoglobin Concent 34 g/dL (31-37) 33 g/dL (31-37) Red Cell Distribution Width 15.3 % (11.5-14.5) 15.4 % (11.5-14.5) Platelet Count 361 x10^3/uL (140-400) 349 x10^3/uL (140-400) Neutrophils (%) (Auto) 71 % (31-73) 53 % (31-73) Lymphocytes (%) (Auto) 19 % (24-48) 33 % (24-48) Monocytes (%) (Auto) 9 % (0-9) 12 % (0-9) Eosinophils (%) (Auto) 1 % (0-3) 2 % (0-3) Basophils (%) (Auto) 0 % (0-3) 1 % (0-3) Neutrophils # (Auto) 6.6 x10^3uL (1.8-7.7) 3.4 x10^3uL (1.8-7.7) Lymphocytes # (Auto) 1.7 x10^3/uL (1.0-4.8) 2.1 x10^3/uL (1.0-4.8) Monocytes # (Auto) 0.8 x10^3/uL (0.0-1.1) 0.8 x10^3/uL (0.0-1.1) Eosinophils # (Auto) 0.1 x10^3/uL (0.0-0.7) 0.1 x10^3/uL (0.0-0.7) Basophils # (Auto) 0.0 x10^3/uL (0.0-0.2) 0.0 x10^3/uL (0.0-0.2) Sodium Level 126 mmol/L (136-145) 127 mmol/L (136-145) Potassium Level 5.5 mmol/L (3.5-5.1) 5.4 mmol/L (3.5-5.1) Chloride Level 93 mmol/L (98-107) 94 mmol/L (98-107) Carbon Dioxide Level 20 mmol/L (21-32) 20 mmol/L (21-32) Anion Gap 13 (6-14) 13 (6-14) Blood Urea Nitrogen 68 mg/dL (8-26) 59 mg/dL (8-26) Creatinine 2.1 mg/dL (0.7-1.3) 1.8 mg/dL (0.7-1.3) Estimated GFR (Cockcroft-Gault) 31.7 37.8 BUN/Creatinine Ratio 32 (6-20) 33 (6-20) Glucose Level 132 mg/dL (70-99) 118 mg/dL (70-99) Calcium Level 9.6 mg/dL (8.5-10.1) 9.8 mg/dL (8.5-10.1) Magnesium Level 2.8 mg/dL (1.8-2.4) Total Bilirubin 0.3 mg/dL (0.2-1.0) 0.7 mg/dL (0.2-1.0) Aspartate Amino Transf (AST/SGOT) 24 U/L (15-37) 25 U/L (15-37) Alanine Aminotransferase (ALT/SGPT) 26 U/L (16-63) 27 U/L (16-63) Alkaline Phosphatase 60 U/L (46-116) 47 U/L (46-116) Creatine Kinase 49 U/L (39-308) Creatine Kinase MB (Mass) 1.0 ng/mL (0.0-3.6) Creatine Kinase MB Relative Index % (0-4) Troponin I Quantitative < 0.017 ng/mL (0.000-0.055) Total Protein 7.3 g/dL (6.4-8.2) 8.0 g/dL (6.4-8.2) Albumin 3.3 g/dL (3.4-5.0) 3.3 g/dL (3.4-5.0) Albumin/Globulin Ratio 0.8 (1.0-1.7) 0.7 (1.0-1.7) Urine Color Yellow Urine Clarity Clear Urine pH 5.0 Urine Specific [place] 1.020 Urine Protein Negative mg/dL (NEG-TRACE) Urine Glucose (UA) Negative mg/dL (NEG) Urine Ketones (Stick) Negative mg/dL (NEG) Urine Blood Negative (NEG) Urine Nitrite Negative (NEG) Urine Bilirubin Negative (NEG) Urine Urobilinogen Dipstick 0.2 mg/dL (0.2 mg/dL) Urine Leukocyte Esterase Negative (NEG) Urine RBC 0 /HPF (0-2) Urine WBC 1-4 /HPF (0-4) Urine Squamous Epithelial Cells Occ /LPF Urine Bacteria 0 /HPF (0-FEW) Urine Hyaline Casts Occasional /HPF Urine Mucus Mod /LPF Review All relevant outside records, renal labs, imaging studies, telemetry/EKG's were reviewed. Images Images No acute pulmonary finding. JEREMIAH LESLIE MD Oct 25, 2018 11:46
--- NOTE | 2018-10-25 12:18 | NUR ---
SS following for discharge planning. SS reviewed pt chart. Pt is from home with spouse and is currently on room air. No discharge needs noted at this time. SS will continue to follow for discharge planning.
[2018-10-25 14:51] VITALS: BP_SYST 105; BP_SYST 106; BP_DIAS 67; BP_DIAS 77
--- NOTE | 2018-10-25 15:52 | NUR ---
Wound Care Wound care consult for BLE wounds. Pt has multiple large areas of open wound over BLE. Cleansed wounds and applied Aquacel Ag, chux pad and Kerlix. Recommend to change daily and PRN. Pt unable to elevate legs due to breathing. Pt will need continued care after discharge, agreeable to follow up in [facility]. Pt denied any other wounds on skin. will continue to follow for possible changes.
[2018-10-25 16:35] LABS: CALCIUM 8.9 mg/dL (8.5-10.1); GFR 33.5; POTASSIUM 5.1 mmol/L (3.5-5.1)
[2018-10-25 19:35] VITALS: BP 113/74
[2018-10-25 22:11] LABS: CALCIUM 9.3 mg/dL (8.5-10.1); CREATININE 2.1 mg/dL (0.7-1.3); GFR 31.7
[2018-10-25 22:35] VITALS: BP 115/73
[2018-10-26 03:00] VITALS: BP 119/71
[2018-10-26 05:24] LABS: ALBUMIN 2.9 g/dL (3.4-5.0); ALBUMIN/GLOBULIN RATIO 0.7 (1.0-1.7); CALCIUM 9.5 mg/dL (8.5-10.1); CREATININE 1.9 mg/dL (0.7-1.3); GFR 35.5; POTASSIUM 5.2 mmol/L (3.5-5.1); TOTAL BILIRUBIN 0.5 mg/dL (0.2-1.0); TOTAL PROTEIN 7.2 g/dL (6.4-8.2)
[2018-10-26] MEDS: LEVOTHYROXINE 175 MCG TABLET PO SCH (05:35)
[2018-10-26] MEDS: HYDROcodone/APAP 10/325 1 TAB TABLET PO PRN ×3 (05:36→20:02)
[2018-10-26 07:24] VITALS: BP 136/77
[2018-10-26] MEDS ORDERED: metOLazone 2.5 MG TABLET PO SCH (09:00)
[2018-10-26] MEDS: ASPIRIN CHEWABLE 81 MG TABLET. PO SCH (09:02)
--- NOTE | 2018-10-26 09:21 | PDOC ---
PROGRESS NOTES Subjective No new overnight problems, labs about the same, requesting ID consult, considering [place] catheter to help manage fluid status Objective Afebrile General: up in chair with legs down Heart: irreg, tachy Lungs: normal resp effort Abd: morbidly obese Ext: 4+ edema, wraps on. erythema of legs K+: 5.2 Creat: 1.9 BUN 52 Na: 129 Vital Signs Vital Signs Date Time Temp Pulse Resp B/P (MAP) Pulse Ox O2 Delivery O2 Flow Rate FiO2 10/26/18 07:31 Room Air 10/26/18 07:24 97.6 91 18 136/77 (96) 98 97.6 I & O Intake and Output 10/26/18 07:00 Intake Total 2120 ml Output Total 1200 ml Balance 920 ml Intake Oral 1220 ml IV Total 900 ml Output Urine Total 1200 ml Assessment and Plan hyponatremia - now off IV saline, renal consult hyperkalemia - renal consult chronic Afib - cardiology consult, now tachy, he had a rash from metoprolol, he does not recall being on diltiazem lymphedema of lower extremities - wound care consult, add ID consult bilateral leg ulcers without PAD per prior imaging at [facility] - wound care consult FIGUEROA vs CKD - renal consult hypothyroidism, TSH normal OA with chronic pain and narcotic dependency morbid obesity - recommend bariatric surgery CHF, acute on chronic diastolic - consider Isa Huddleston MD Oct 26, 2018 09:21
--- NOTE | 2018-10-26 09:29 | PDOC ---
SUBJECTIVE ROS Stable, No complaints OBJECTIVE Vital Signs Vital Signs Date Time Temp Pulse Resp B/P (MAP) Pulse Ox O2 Delivery O2 Flow Rate FiO2 10/26/18 07:31 Room Air 10/26/18 07:24 97.6 91 18 136/77 (96) 98 97.6 I & 0 Intake and Output 10/26/18 06:59 Intake Total 2120 ml Output Total 1200 ml Balance 920 ml Intake Oral 1220 ml IV Total 900 ml Output Urine Total 1200 ml PHYSICAL EXAM Physical Exam GEN.: No apparent distress. Sitting up , Morbidly Obese HEENT: OM moist NECK: Supple. LUNGS: Clear to auscultation. HEART: irreg irreg, rate controlled, S1, S2 present. Peripheral pulses intact ABDOMEN: Soft, nontender. Positive bowel sounds. EXTREMITIES: bilateral lymphedema. NEUROLOGIC: Normal speech, normal tone PSYCHIATRIC: Normal affect, normal mood. SKIN: + LE ulcerations bandaged but weeping DIAGNOSIS/ASSESSMENT Assessment & Plan FIGUEROA - Baseline Unknown , eGFR low during Hosp at 1 mo ago IV NS since admission, held last evening as Na had dropped Renal function stable Please Obtain records from Hyponatremia-asymptomatic TSH normal, CtA in [address] [facility]- No lung mass hold metolazone Ur Lytes, Ur and serum Osm pending results Na improving after holding IV NS Hyperkalemia-Mild, Monitor Acute on chronic diastolic heart failure. Echo 09/09 with preserved LV systolic function Persistent AFIB; on ASA for stroke prevention. Hypothyroidism; on replacement Chronic LE lymphedema Discussed with Pt, and RN COMMENT/RELEVANT DATA Meds Current Medications Medications (Trade) Dose Ordered Sig/Melyssa Start Time Stop Time Status Last Admin Dose Admin Acetaminophen/ Hydrocodone Bitart (Lortab 10/325) 2 tab PRN Q4HRS PRN 10/25/18 09:15 10/26/18 05:36 2 TAB Aspirin (Children'S Aspirin) 81 mg DAILYWBKFT 10/25/18 11:30 10/26/18 09:02 81 MG Levothyroxine Sodium (Synthroid) 175 mcg DAILY06 10/25/18 06:00 10/26/18 05:35 175 MCG Metolazone (Zaroxolyn) 2.5 mg QODAY 10/26/18 09:00 10/26/18 09:00 DC Sodium Chloride 1,000 ml @ 100 mls/hr Q10H 10/25/18 09:30 10/25/18 18:29 DC 10/25/18 09:41 100 MLS/HR Lab Laboratory Tests Test 10/25/18 15:55 10/25/18 21:50 10/26/18 04:15 Sodium Level 124 mmol/L (136-145) 128 mmol/L (136-145) 129 mmol/L (136-145) Potassium Level 5.1 mmol/L (3.5-5.1) 5.0 mmol/L (3.5-5.1) 5.2 mmol/L (3.5-5.1) Chloride Level 95 mmol/L (98-107) 94 mmol/L (98-107) 97 mmol/L (98-107) Carbon Dioxide Level 16 mmol/L (21-32) 22 mmol/L (21-32) 21 mmol/L (21-32) Anion Gap 13 (6-14) 12 (6-14) 11 (6-14) Blood Urea Nitrogen 56 mg/dL (8-26) 56 mg/dL (8-26) 52 mg/dL (8-26) Creatinine 2.0 mg/dL (0.7-1.3) 2.1 mg/dL (0.7-1.3) 1.9 mg/dL (0.7-1.3) Estimated GFR (Cockcroft-Gault) 33.5 31.7 35.5 Glucose Level 120 mg/dL (70-99) 123 mg/dL (70-99) 113 mg/dL (70-99) Calcium Level 8.9 mg/dL (8.5-10.1) 9.3 mg/dL (8.5-10.1) 9.5 mg/dL (8.5-10.1) BUN/Creatinine Ratio 27 (6-20) Total Bilirubin 0.5 mg/dL (0.2-1.0) Aspartate Amino Transf (AST/SGOT) 21 U/L (15-37) Alanine Aminotransferase (ALT/SGPT) 25 U/L (16-63) Alkaline Phosphatase 43 U/L (46-116) Total Protein 7.2 g/dL (6.4-8.2) Albumin 2.9 g/dL (3.4-5.0) Albumin/Globulin Ratio 0.7 (1.0-1.7) Results All relevant outside records, renal labs, imaging studies, telemetry/EKG's were reviewed. Other CTA in 2017- There are no suspicious pulmonary nodules identified. No pulmonary infiltrates. There is a 9 mm calcified granuloma in the left upper lobe anteriorly. JEREMIAH LESLIE MD Oct 26, 2018 09:29
[2018-10-26 10:25] VITALS: BP 112/70
--- NOTE | 2018-10-26 11:32 | PDOC ---
EMETERIO JOEL SPORTS EQUIPMENT RACKER 10/26/18 1131: CARDIO Progress Notes Date and Time Date of Service 10/26/2018 Time of Evaluation 1110 Subjective Subjective: No Chest Pain, No shortness of breath, No Palpitations Vitals Vitals Vital Signs Date Time Temp Pulse Resp B/P (MAP) Pulse Ox O2 Delivery O2 Flow Rate FiO2 10/26/18 10:25 98.2 112 20 112/70 (84) 96 Room Air 98.2 Weight Weight [ ] Input and Output Intake and Output Intake and Output 10/26/18 07:00 Intake Total 2120 ml Output Total 1200 ml Balance 920 ml Intake Oral 1220 ml IV Total 900 ml Output Urine Total 1200 ml Laboratory Labs Laboratory Tests Test 10/25/18 15:55 10/25/18 21:50 10/26/18 04:15 Sodium Level 124 mmol/L (136-145) 128 mmol/L (136-145) 129 mmol/L (136-145) Potassium Level 5.1 mmol/L (3.5-5.1) 5.0 mmol/L (3.5-5.1) 5.2 mmol/L (3.5-5.1) Chloride Level 95 mmol/L (98-107) 94 mmol/L (98-107) 97 mmol/L (98-107) Carbon Dioxide Level 16 mmol/L (21-32) 22 mmol/L (21-32) 21 mmol/L (21-32) Anion Gap 13 (6-14) 12 (6-14) 11 (6-14) Blood Urea Nitrogen 56 mg/dL (8-26) 56 mg/dL (8-26) 52 mg/dL (8-26) Creatinine 2.0 mg/dL (0.7-1.3) 2.1 mg/dL (0.7-1.3) 1.9 mg/dL (0.7-1.3) Estimated GFR (Cockcroft-Gault) 33.5 31.7 35.5 Glucose Level 120 mg/dL (70-99) 123 mg/dL (70-99) 113 mg/dL (70-99) Calcium Level 8.9 mg/dL (8.5-10.1) 9.3 mg/dL (8.5-10.1) 9.5 mg/dL (8.5-10.1) BUN/Creatinine Ratio 27 (6-20) Total Bilirubin 0.5 mg/dL (0.2-1.0) Aspartate Amino Transf (AST/SGOT) 21 U/L (15-37) Alanine Aminotransferase (ALT/SGPT) 25 U/L (16-63) Alkaline Phosphatase 43 U/L (46-116) Total Protein 7.2 g/dL (6.4-8.2) Albumin 2.9 g/dL (3.4-5.0) Albumin/Globulin Ratio 0.7 (1.0-1.7) Physical Exam HEENT: Neck Supple W Full Motion Chest: Symmetric LUNGS: Clear to Auscultation Heart: irregularly irregular (AFIB) Abdomen: Soft N/T, Other (obese) Extremities: Other (severe LE lyphedema) Neurology: alert, oriented, follow commands Assessment Assessment 1. FIGUEROA/hyponatremia/hyperkalemia: nephrology following 2. Acute on chronic diastolic heart failure. Multifactorial with SKYE, morbid obesity and noncompliance. Echo 09/09 with preserved LV systolic function 6. Persistent AFIB; on ASA for stroke prevention. No rate controlling agents or OAC as they make him "sick" 7. Hypothyroidism; on replacement 8. Chronic severe LE lymphedema Recommendations 1. Defer diuresis to nephrology 2. Continue ASA for stroke prevention. anticoagulation is preferred but pt has nonadherence issues and refusing 3. I was able to convinced him to get started on cardizem IR and refusing metoprolol which may caused him to have rash 4. Poor jail prognosis. Could also consider CT venogram to rule out central venous obstruction ROGER CURRIE MD 10/26/18 1805: CARDIO Progress Notes Plan Plan Pt. seen and examined. Agree with above [employer] E[employer] Consultant note. Consider RHC prior to DC. Supportive care otherwise. Thanks. Will follow along. EMETERIO JOEL APRN Oct 26, 2018 11:31 ROGER CURRIE MD Oct 26, 2018 18:05
--- NOTE | 2018-10-26 12:03 | PDOC ---
Infectious Disease Note Vital Sign Vital Signs Vital Signs Date Time Temp Pulse Resp B/P (MAP) Pulse Ox O2 Delivery O2 Flow Rate FiO2 10/26/18 10:25 98.2 112 20 112/70 (84) 96 Room Air 98.2 Labs Lab Laboratory Tests Test 10/25/18 15:55 10/25/18 21:50 10/26/18 04:15 Sodium Level 124 mmol/L (136-145) 128 mmol/L (136-145) 129 mmol/L (136-145) Potassium Level 5.1 mmol/L (3.5-5.1) 5.0 mmol/L (3.5-5.1) 5.2 mmol/L (3.5-5.1) Chloride Level 95 mmol/L (98-107) 94 mmol/L (98-107) 97 mmol/L (98-107) Carbon Dioxide Level 16 mmol/L (21-32) 22 mmol/L (21-32) 21 mmol/L (21-32) Anion Gap 13 (6-14) 12 (6-14) 11 (6-14) Blood Urea Nitrogen 56 mg/dL (8-26) 56 mg/dL (8-26) 52 mg/dL (8-26) Creatinine 2.0 mg/dL (0.7-1.3) 2.1 mg/dL (0.7-1.3) 1.9 mg/dL (0.7-1.3) Estimated GFR (Cockcroft-Gault) 33.5 31.7 35.5 Glucose Level 120 mg/dL (70-99) 123 mg/dL (70-99) 113 mg/dL (70-99) Calcium Level 8.9 mg/dL (8.5-10.1) 9.3 mg/dL (8.5-10.1) 9.5 mg/dL (8.5-10.1) BUN/Creatinine Ratio 27 (6-20) Total Bilirubin 0.5 mg/dL (0.2-1.0) Aspartate Amino Transf (AST/SGOT) 21 U/L (15-37) Alanine Aminotransferase (ALT/SGPT) 25 U/L (16-63) Alkaline Phosphatase 43 U/L (46-116) Total Protein 7.2 g/dL (6.4-8.2) Albumin 2.9 g/dL (3.4-5.0) Albumin/Globulin Ratio 0.7 (1.0-1.7) Objective Assessment Jose LE wounds LE cellulitis with odor Chronic BLE lymphedema Yeast on feet and in groin FIGUEROA Afib Plan Plan of Care [place] Augmentin Micafungin for a few doses Topical nystatin Cont Local wound care D/w D/w nursing Thank you # [phone] PRANAV LEE MD Oct 26, 2018 12:03
[2018-10-26] MEDS: AMOXICILLIN/K CLAV 875/125MG TABLET. PO SCH ×2 (12:15→21:00)
[2018-10-26] MEDS: dilTIAZem HCL 30 MG TABLET PO SCH ×2 (12:15→21:00)
[2018-10-26] MEDS: MICAFUNGIN 100 MG in IV DEXTROSE 5% 100ML 100 ML IV SCH (13:40)
[2018-10-26] MEDS: NYSTATIN TOPICAL POWDER 15GM BOTTLE. TP SCH ×2 (13:40→21:00)
[2018-10-26 14:15] LABS: SODIUM, URINE <60 mmol/L (Not Estab.); UR POTASSIUM 27.2 mmol/L (Not Estab.)
[2018-10-26 14:41] VITALS: BP 120/79
[2018-10-26] MEDS: MULTIVITAMIN with MINERAL TABLET. PO SCH (17:27)
[2018-10-26 19:24] VITALS: BP 110/67
[2018-10-26] MEDS: LACTOBACILLUS RHAMNOSUS GG 1 CAPSULE. PO SCH (20:54)
[2018-10-26 22:58] VITALS: BP 112/69
[2018-10-27 02:24] VITALS: BP 103/70
[2018-10-27] MEDS: LEVOTHYROXINE 175 MCG TABLET PO SCH (05:44)
[2018-10-27 05:55] LABS: CALCIUM 9.8 mg/dL (8.5-10.1); CREATININE 1.8 mg/dL (0.7-1.3); GFR 37.8
[2018-10-27 06:00] LABS: POTASSIUM 5.2 mmol/L (3.5-5.1)
[2018-10-27 07:39] VITALS: BP 106/60
--- NOTE | 2018-10-27 07:50 | CONS ---
DATE OF CONSULTATION: 10/26/2018 INFECTIOUS DISEASE CONSULTATION The patient is in room 209. REQUESTING PHYSICIAN: Dr. aMr REASON FOR CONSULTATION: Lower extremity wounds. HISTORY OF PRESENT ILLNESS: The patient is a 68-year-old gentleman with history of atrial fibrillation, chronic lower extremity lymphedema for over 9 years, had some leg wounds in August, was treated in the outpatient setting by Dr. Alarcon, was on levofloxacin, stated at that time some of the redness in legs actually felt better. He was recently hospitalized at , was told he had decreased GFR, but in the outpatient setting had abnormal labs and was referred to the Emergency Room by Dr. Mcclellan. Currently, he is sitting in a chair. He has been evaluated by wound care. He continues to have a fair amount of drainage from his legs. He has chronic pain, but states he is feeling some better. He denies any fever or chills or sweats. He has no nausea or vomiting. No gross shortness of air. No complications passing his urine. Denies any trauma. PAST MEDICAL HISTORY: Positive for atrial fibrillation, congestive heart failure, lymphedema, gastroesophageal reflux disease, obstructive sleep apnea, hypothyroidism, morbid obesity. 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 REVIEW OF SYSTEMS: Otherwise negative. ALLERGIES: LISTED TO METOPROLOL, RECENTLY STARTED AND CAUSED RASH. SOCIAL HISTORY: He is . His is currently with him. No tobacco or alcohol. FAMILY HISTORY: Positive for leukemia, throat cancer, chronic bronchitis, heart disease and hypertension. CURRENT MEDICATIONS: Include aspirin, diltiazem, Synthroid, Zaroxolyn. PHYSICAL EXAMINATION: VITAL SIGNS: She is afebrile, temperature 98.2, pulse 112, respirations 20, blood pressure 112/70, satting 96% on room air. CONSTITUTIONAL: He is cooperative. He is in no acute distress. He is sitting in a chair. HEENT: His pupils are equal and reactive with normal conjunctivae. Oral cavity, pharynx is clear. NECK: Supple. Good range of motion. LUNGS: Clear to auscultation. HEART: S1, S2. ABDOMEN: Morbidly obese, soft, no guarding, no rebound. EXTREMITIES: 3+ to 4+ lower extremity edema. There is a serous drainage. He has bilateral lower extremity erythema. There is no gross warmth, but there is a strong odor associated with his legs. He also has tinea in his groin area and some on his legs. SKIN: Otherwise, warm to touch without signs of rash. NEUROLOGIC: He is nonfocal and appropriate. PSYCHIATRIC: Affect is pleasant. LABORATORY VALUES: From the 4th, white count 6.4, hemoglobin 59, platelets 349, neutrophils 53, lymphs are 33. Creatinine today of 1.9, glucose of 113. Normal liver function study tests. BNP of 593. Chest x-ray without acute pulmonary findings. IMPRESSION: 1. Bilateral lower extremity wounds. 2. Lower extremity cellulitis given the odor. 3. Chronic bilateral lower extremity lymphedema. 4. Yeast in feet and in the groin area. 5. Acute kidney injury. 6. Atrial fibrillation. RECOMMENDATIONS: We will give a trial of Augmentin. We will give IV micafungin for a few doses, have some topical nystatin. Continue local wound care. This was discussed with his . Thank you for allowing me to participate in this patient's care. If you have any questions, please do not hesitate to contact me. PRANAV LEE MD DR: SIXTO/mikayla JOB#: [id number] / [id number]
[2018-10-27] MEDS: AMOXICILLIN/K CLAV 875/125MG TABLET. PO SCH ×2 (08:29→21:21)
[2018-10-27] MEDS: LACTOBACILLUS RHAMNOSUS GG 1 CAPSULE. PO SCH ×2 (08:30→21:00)
[2018-10-27] MEDS: dilTIAZem HCL 30 MG TABLET PO SCH ×2 (08:30→21:21)
[2018-10-27] MEDS: ASPIRIN CHEWABLE 81 MG TABLET. PO SCH (08:30)
[2018-10-27] MEDS: NYSTATIN TOPICAL POWDER 15GM BOTTLE. TP SCH ×2 (08:30→21:00)
[2018-10-27] MEDS: MULTIVITAMIN with MINERAL TABLET. PO SCH (08:30)
--- NOTE | 2018-10-27 08:52 | PDOC ---
Infectious Disease Note Subjective Subjective Doing ok. Sleeping in chair Tolerating Augmentin No F/C/S/N/V/D/SOA/rash ROS ROS o/w neg Vital Sign Vital Signs Vital Signs Date Time Temp Pulse Resp B/P (MAP) Pulse Ox O2 Delivery O2 Flow Rate FiO2 10/27/18 08:30 106 106/60 10/27/18 07:39 97.2 14 98 Room Air 97.2 Physical Exam PHYSICAL EXAM CONSTITUTIONAL: He is cooperative. He is in no acute distress. He is sitting in a chair. HEENT: His pupils are equal and reactive with normal conjunctivae. Oral cavity, pharynx is clear. NECK: Supple. Good range of motion. LUNGS: Clear to auscultation. HEART: S1, S2. ABDOMEN: Morbidly obese, soft, no guarding, no rebound. EXTREMITIES: 3+ to 4+ lower extremity edema. There is a serous drainage. He has bilateral lower extremity erythema with dependent Rubor. There is no gross warmth, but there is a still some odor associated with his legs. He also has tinea in his groin area and some on his legs. SKIN: Otherwise, warm to touch without signs of rash. NEUROLOGIC: He is nonfocal and appropriate. PSYCHIATRIC: Affect is pleasant Labs Lab Laboratory Tests Test 10/27/18 04:05 Sodium Level 128 mmol/L (136-145) Potassium Level 5.2 mmol/L (3.5-5.1) Chloride Level 94 mmol/L (98-107) Carbon Dioxide Level 20 mmol/L (21-32) Anion Gap 14 (6-14) Blood Urea Nitrogen 57 mg/dL (8-26) Creatinine 1.8 mg/dL (0.7-1.3) Estimated GFR (Cockcroft-Gault) 37.8 Glucose Level 113 mg/dL (70-99) Calcium Level 9.8 mg/dL (8.5-10.1) Objective Assessment Jose LE wounds LE cellulitis with odor Chronic BLE lymphedema Yeast on feet and in groin FIGUEROA Afib Plan Plan of Care [place] Augmentin for 7 days total D/c Micafungin after todays dose Cont Topical nystatin at home Elevation of legs - social service eval for wedge pillow at home Cont Local wound care F/u Wound care center Ok to d/c home D/w PRANAV LEE MD Oct 27, 2018 08:52
--- NOTE | 2018-10-27 10:34 | PDOC ---
EMETERIO JOEL CHARGE ACCOUNT CLERK 10/27/18 1034: CARDIO Progress Notes Date and Time Date of Service 10/27/2018 Time of Evaluation 1020 Subjective Subjective: No Chest Pain, No shortness of breath, No Palpitations Vitals Vitals Vital Signs Date Time Temp Pulse Resp B/P (MAP) Pulse Ox O2 Delivery O2 Flow Rate FiO2 10/27/18 08:30 106 106/60 10/27/18 08:00 Room Air 10/27/18 07:39 97.2 14 98 97.2 Weight Weight [ ] Input and Output Intake and Output Intake and Output 10/27/18 06:59 Intake Total 1440 ml Output Total 1025 ml Balance 415 ml Intake Oral 1440 ml Output Urine Total 1025 ml Laboratory Labs Laboratory Tests Test 10/27/18 04:05 Sodium Level 128 mmol/L (136-145) Potassium Level 5.2 mmol/L (3.5-5.1) Chloride Level 94 mmol/L (98-107) Carbon Dioxide Level 20 mmol/L (21-32) Anion Gap 14 (6-14) Blood Urea Nitrogen 57 mg/dL (8-26) Creatinine 1.8 mg/dL (0.7-1.3) Estimated GFR (Cockcroft-Gault) 37.8 Glucose Level 113 mg/dL (70-99) Calcium Level 9.8 mg/dL (8.5-10.1) Physical Exam HEENT: Neck Supple W Full Motion Chest: Symmetric LUNGS: Clear to Auscultation Heart: irregularly irregular (AFIB) Abdomen: Soft N/T, Other (obese) Extremities: Other (severe LE lyphedema) Neurology: alert, oriented, follow commands Assessment Assessment 1. FIGUEROA/hyponatremia/hyperkalemia: nephrology following 2. Acute on chronic diastolic heart failure. Multifactorial with SKYE, morbid obesity and noncompliance. Echo 09/09 with preserved LV systolic function. Compensated 6. Persistent AFIB; rate controlled 7. Hypothyroidism; on replacement 8. Chronic severe LE lymphedema Recommendations 1. Defer diuresis to nephrology 2. Continue ASA for stroke prevention. anticoagulation is preferred but pt has nonadherence issues and refusing. Not interested in RHC 3. Continue with cardizem 4. Follow up in office in 4 weeks. Discussed compliance ROGER CURRIE MD 10/27/18 1520: CARDIO Progress Notes Plan Plan Pt. seen and examined. Agree with above QUARRYING MANAGER note. Supportive care. Thanks. EMETERIO JOEL APRN Oct 27, 2018 10:34 ROGER CURRIE MD Oct 27, 2018 15:20
--- NOTE | 2018-10-27 10:51 | PDOC ---
SUBJECTIVE ROS Stable, No complaints OBJECTIVE Vital Signs Vital Signs Date Time Temp Pulse Resp B/P (MAP) Pulse Ox O2 Delivery O2 Flow Rate FiO2 10/27/18 08:30 106 106/60 10/27/18 08:00 Room Air 10/27/18 07:39 97.2 14 98 97.2 I & 0 Intake and Output 10/27/18 07:00 Intake Total 1440 ml Output Total 1025 ml Balance 415 ml Intake Oral 1440 ml Output Urine Total 1025 ml PHYSICAL EXAM Physical Exam GEN.: No apparent distress. Sitting up , Morbidly Obese HEENT: OM moist NECK: Supple. LUNGS: Clear to auscultation. HEART: irreg irreg, rate controlled, S1, S2 present. Peripheral pulses intact ABDOMEN: Soft, nontender. Positive bowel sounds. EXTREMITIES: bilateral lymphedema. NEUROLOGIC: Normal speech, normal tone PSYCHIATRIC: Normal affect, normal mood. SKIN: + LE ulcerations bandaged but weeping DIAGNOSIS/ASSESSMENT Assessment & Plan FIGUEROA - Baseline Unknown , eGFR low during Hosp at 1 mo ago Renal function stable Awaiting records from Hyponatremia-asymptomatic , stable at 128 TSH normal, CtA in 2017 at [facility]- No lung mass IV Lasix 40 mg x 1 Ur and serum Osm pending results Hyperkalemia-Mild, Monitor Acute on chronic diastolic heart failure. Echo 09/09 with preserved LV systolic function Persistent AFIB; on ASA for stroke prevention. Hypothyroidism; on replacement Chronic LE lymphedema Discussed with Pt, and RN COMMENT/RELEVANT DATA Meds Current Medications Medications (Trade) Dose Ordered Sig/Melyssa Start Time Stop Time Status Last Admin Dose Admin Acetaminophen/ Hydrocodone Bitart (Lortab 10/325) 2 tab PRN Q4HRS PRN 10/25/18 09:15 10/26/18 20:02 2 TAB Amoxicillin/ Clavulanate Potassium (Augmentin 875/ 125mg) 1 tab BID 10/26/18 12:00 10/27/18 08:29 1 TAB Aspirin (Children'S Aspirin) 81 mg DAILYWBKFT 10/25/18 11:30 10/27/18 08:30 81 MG Diltiazem HCl (Cardizem) 30 mg BID 10/26/18 11:30 10/27/18 08:30 30 MG Lactobacillus Rhamnosus (Culturelle) 1 cap BID 10/26/18 21:00 10/27/18 08:30 1 CAP Levothyroxine Sodium (Synthroid) 175 mcg DAILY06 10/25/18 06:00 10/27/18 05:44 175 MCG Metolazone (Zaroxolyn) 2.5 mg QODAY 10/26/18 09:00 10/26/18 09:00 DC Micafungin Sodium 100 mg/Dextrose 100 ml @ 100 mls/hr Q24H 10/26/18 12:00 10/26/18 13:40 100 MLS/HR Multivitamins (Thera M Plus) 1 tab DAILY 10/26/18 16:00 10/27/18 08:30 1 TAB Nystatin (Nystop) 1 bee BID 10/26/18 12:00 10/27/18 08:30 1 BEE Sodium Chloride 1,000 ml @ 100 mls/hr Q10H 10/25/18 09:30 10/25/18 18:29 DC 10/25/18 09:41 100 MLS/HR Lab Laboratory Tests Test 10/27/18 04:05 Sodium Level 128 mmol/L (136-145) Potassium Level 5.2 mmol/L (3.5-5.1) Chloride Level 94 mmol/L (98-107) Carbon Dioxide Level 20 mmol/L (21-32) Anion Gap 14 (6-14) Blood Urea Nitrogen 57 mg/dL (8-26) Creatinine 1.8 mg/dL (0.7-1.3) Estimated GFR (Cockcroft-Gault) 37.8 Glucose Level 113 mg/dL (70-99) Calcium Level 9.8 mg/dL (8.5-10.1) Results All relevant outside records, renal labs, imaging studies, telemetry/EKG's were reviewed. JEREMIAH LESLIE MD Oct 27, 2018 10:51
[2018-10-27 11:00] VITALS: BP 113/69
[2018-10-27] MEDS ORDERED: FUROSEMIDE 40 MG/4 ML VIAL. IVP ONE (12:15)
[2018-10-27] MEDS: MICAFUNGIN 100 MG in IV DEXTROSE 5% 100ML 100 ML IV SCH (12:33)
[2018-10-27 14:48] VITALS: BP 121/67
--- NOTE | 2018-10-27 16:55 | PDOC ---
PROGRESS NOTES Subjective No significant changes in labs or status, heart rate controlled with diltiazem and tolerating it, pending labs still pending Objective General: up in chair with legs dangling Heart: monitor shows afib with rate in 90s Lungs: CTA Abd: obese, soft, positive bowel sounds Ext: 4+ edema with redness Vital Signs Vital Signs Date Time Temp Pulse Resp B/P (MAP) Pulse Ox O2 Delivery O2 Flow Rate FiO2 10/27/18 14:48 97.8 90 18 121/67 (85) 98 Room Air 97.8 I & O Intake and Output 10/27/18 07:00 Intake Total 1440 ml Output Total 1025 ml Balance 415 ml Intake Oral 1440 ml Output Urine Total 1025 ml Assessment and Plan hyponatremia - now off IV saline, renal consult, IV lasix today hyperkalemia - renal consult chronic Afib - cardiology consult, continue cardizem lymphedema of lower extremities - wound care consult, ID consult, started on augmentin and antifungals, he has not had HH in the past bilateral leg ulcers without PAD per prior imaging at [facility] - wound care consult FIGUEROA vs CKD - renal consult hypothyroidism, TSH normal OA with chronic pain and narcotic dependency morbid obesity - recommend bariatric surgery CHF, acute on chronic diastolic, per cardiology Isa PITTS MD Oct 27, 2018 16:55
[2018-10-27 19:46] VITALS: BP 106/56
[2018-10-27 23:37] VITALS: BP 97/63
[2018-10-28] MEDS: HYDROcodone/APAP 10/325 1 TAB TABLET PO PRN ×2 (00:29→07:38)
[2018-10-28 03:01] VITALS: BP 102/60
[2018-10-28] MEDS: LEVOTHYROXINE 175 MCG TABLET PO SCH (05:55)
[2018-10-28 06:50] LABS: CALCIUM 9.7 mg/dL (8.5-10.1); CREATININE 1.9 mg/dL (0.7-1.3); GFR 35.5; POTASSIUM 5.4 mmol/L (3.5-5.1)
[2018-10-28 06:56] LABS: ALBUMIN 3.1 g/dL (3.4-5.0); ALBUMIN/GLOBULIN RATIO 0.7 (1.0-1.7); TOTAL BILIRUBIN 0.6 mg/dL (0.2-1.0); TOTAL PROTEIN 7.5 g/dL (6.4-8.2)
[2018-10-28 07:00] VITALS: BP 165/69
[2018-10-28] MEDS: MULTIVITAMIN with MINERAL TABLET. PO SCH (08:31)
[2018-10-28] MEDS: ASPIRIN CHEWABLE 81 MG TABLET. PO SCH (08:31)
[2018-10-28] MEDS: AMOXICILLIN/K CLAV 875/125MG TABLET. PO SCH (08:31)
[2018-10-28] MEDS: dilTIAZem HCL 30 MG TABLET PO SCH (08:31)
[2018-10-28] MEDS: LACTOBACILLUS RHAMNOSUS GG 1 CAPSULE. PO SCH (08:32)
[2018-10-28] MEDS: NYSTATIN TOPICAL POWDER 15GM BOTTLE. TP SCH (08:32)
--- NOTE | 2018-10-28 10:35 | NUR ---
SS following up with referral received for [employer]el[employer]up cloud pillow. SS contacted SPD and wound care and discussed. None available at the hospital. SS contacted [employer] [facility] [employer] to inquire about coverage and cost. SS was notified that insurance does not cover. [employer] reported that they could provide pt with [employer]el[employer]up cloud pillow for $61.95 plus tax and would deliver it to pt's home. Information provided to pt's spouse. Pt's spouse reported she will order one for pt.
--- NOTE | 2018-10-28 10:38 | PDOC ---
Infectious Disease Note Subjective Subjective Doing ok. Had bilat sharp leg pain last pm but subsided Tolerating Augmentin No F/C/S/N/V/D/SOA/rash ROS ROS o/w neg Vital Sign Vital Signs Vital Signs Date Time Temp Pulse Resp B/P (MAP) Pulse Ox O2 Delivery O2 Flow Rate FiO2 10/28/18 08:31 96 165/69 10/28/18 08:10 Room Air 10/28/18 07:00 97.5 20 96 97.5 Physical Exam PHYSICAL EXAM CONSTITUTIONAL: He is cooperative. He is in no acute distress. He is sitting in a chair. HEENT: His pupils are equal and reactive with normal conjunctivae. Oral cavity, pharynx is clear. NECK: Supple. Good range of motion. LUNGS: Clear to auscultation. HEART: S1, S2. ABDOMEN: Morbidly obese, soft, no guarding, no rebound. EXTREMITIES: 3+ lower extremity edema. There is a serous drainage. He has bilateral lower extremity erythema with dependent Rubor. There is no gross warmth, but the odor associated with his legs is gone. He also has tinea in his groin area and some on his legs. SKIN: Otherwise, warm to touch without signs of rash. NEUROLOGIC: He is nonfocal and appropriate. PSYCHIATRIC: Affect is pleasant Labs Lab Laboratory Tests Test 10/28/18 06:30 Sodium Level 126 mmol/L (136-145) Potassium Level 5.4 mmol/L (3.5-5.1) Chloride Level 94 mmol/L (98-107) Carbon Dioxide Level 19 mmol/L (21-32) Anion Gap 13 (6-14) Blood Urea Nitrogen 67 mg/dL (8-26) Creatinine 1.9 mg/dL (0.7-1.3) Estimated GFR (Cockcroft-Gault) 35.5 BUN/Creatinine Ratio 35 (6-20) Glucose Level 129 mg/dL (70-99) Calcium Level 9.7 mg/dL (8.5-10.1) Total Bilirubin 0.6 mg/dL (0.2-1.0) Aspartate Amino Transf (AST/SGOT) 28 U/L (15-37) Alanine Aminotransferase (ALT/SGPT) 28 U/L (16-63) Alkaline Phosphatase 45 U/L (46-116) Total Protein 7.5 g/dL (6.4-8.2) Albumin 3.1 g/dL (3.4-5.0) Albumin/Globulin Ratio 0.7 (1.0-1.7) Objective Assessment Jose LE wounds LE cellulitis with odor - better Chronic BLE lymphedema - less edema Yeast on feet and in groin FIGUEROA Afib Plan Plan of Care [place] Augmentin for 7 more days D/c Micafungin after todays dose Cont Topical nystatin at home Elevation of legs - social service eval for wedge pillow at home Cont Local wound care F/u Wound care center/primary Ok to d/c home D/w D/w account services manager PRANAV LEE MD Oct 28, 2018 10:38
[2018-10-28] MEDS ORDERED: MICAFUNGIN 100 MG in IV DEXTROSE 5% 100ML 100 ML IV ONE (11:00)
[2018-10-28 11:30] VITALS: BP 96/63
--- NOTE | 2018-10-28 13:50 | PDOC ---
SUBJECTIVE ROS Stable, No complaints, Insists wants to go home and will follow with PCP OBJECTIVE Vital Signs Vital Signs Date Time Temp Pulse Resp B/P (MAP) Pulse Ox O2 Delivery O2 Flow Rate FiO2 10/28/18 11:30 97.8 89 18 96/63 (74) 98 Room Air 97.8 I & 0 Intake and Output 10/28/18 07:00 Intake Total 3240 ml Output Total 1675 ml Balance 1565 ml Intake Oral 3240 ml Output Urine Total 1675 ml # Voids 1 # Bowel Movements 1 PHYSICAL EXAM Physical Exam GEN.: No apparent distress. Sitting up , Morbidly Obese HEENT: OM moist NECK: Supple. LUNGS: Clear to auscultation. HEART: irreg irreg, rate controlled, S1, S2 present. Peripheral pulses intact ABDOMEN: Soft, nontender. Positive bowel sounds. EXTREMITIES: bilateral lymphedema. NEUROLOGIC: Normal speech, normal tone PSYCHIATRIC: Normal affect, normal mood. SKIN: + LE ulcerations bandaged but weeping DIAGNOSIS/ASSESSMENT Assessment & Plan FIGUEROA - Recent Hospitalization at [facility] on 09/19 Stable renal function Hyponatremia-asymptomatic , stable at 126- 128 , at [facility] on 09/19 TSH normal, CtA in 2017 at [facility]- No lung mass IV Lasix 40 mg x 1 , No response serum Osm still pending results , Ur osm >500 Pt not following Fluid restriction , CTA Normal in [address] without contrast (to complete w/u), Non smoker Refuses Meds , Non complaint with all meds in past as wee- stopped on his own ' Increase Na Intake in diet Hyperkalemia-Mild, chronic Discussed Low K diet Acute on chronic diastolic heart failure. Echo 09/09 with preserved LV systolic function Persistent AFIB; on ASA for stroke prevention. Hypothyroidism; on replacement Chronic LE lymphedema Pt and insist to be dced home. Defer to Primary, recommend follow up with PCP next week with labs and follow up on CT report For CKD pt can call our office for follow up appt(Non Urgent) COMMENT/RELEVANT DATA Meds Current Medications Medications (Trade) Dose Ordered Sig/Melyssa Start Time Stop Time Status Last Admin Dose Admin Acetaminophen/ Hydrocodone Bitart (Lortab 10/325) 2 tab PRN Q4HRS PRN 10/25/18 09:15 10/28/18 07:38 2 TAB Amoxicillin/ Clavulanate Potassium (Augmentin 875/ 125mg) 1 tab BID 10/26/18 12:00 10/28/18 08:31 1 TAB Aspirin (Children'S Aspirin) 81 mg DAILYWBKFT 10/25/18 11:30 10/28/18 08:31 81 MG Diltiazem HCl (Cardizem) 30 mg BID 10/26/18 11:30 10/28/18 08:31 30 MG Furosemide (Lasix) 40 mg 1X ONCE 10/27/18 12:15 10/27/18 12:19 DC 10/27/18 12:33 40 MG Lactobacillus Rhamnosus (Culturelle) 1 cap BID 10/26/18 21:00 10/28/18 08:32 1 CAP Levothyroxine Sodium (Synthroid) 175 mcg DAILY06 10/25/18 06:00 10/28/18 05:55 175 MCG Metolazone (Zaroxolyn) 2.5 mg QODAY 10/26/18 09:00 10/26/18 09:00 DC Micafungin Sodium 100 mg/Dextrose 100 ml @ 100 mls/hr ONCE ONCE 10/28/18 11:00 10/28/18 11:59 DC 10/28/18 11:12 100 MLS/HR Multivitamins (Thera M Plus) 1 tab DAILY 10/26/18 16:00 10/28/18 08:31 1 TAB Nystatin (Nystop) 1 bee BID 10/26/18 12:00 10/28/18 08:32 1 BEE Sodium Chloride 1,000 ml @ 100 mls/hr Q10H 10/25/18 09:30 10/25/18 18:29 DC 10/25/18 09:41 100 MLS/HR Lab Laboratory Tests Test 10/28/18 06:30 Sodium Level 126 mmol/L (136-145) Potassium Level 5.4 mmol/L (3.5-5.1) Chloride Level 94 mmol/L (98-107) Carbon Dioxide Level 19 mmol/L (21-32) Anion Gap 13 (6-14) Blood Urea Nitrogen 67 mg/dL (8-26) Creatinine 1.9 mg/dL (0.7-1.3) Estimated GFR (Cockcroft-Gault) 35.5 BUN/Creatinine Ratio 35 (6-20) Glucose Level 129 mg/dL (70-99) Calcium Level 9.7 mg/dL (8.5-10.1) Total Bilirubin 0.6 mg/dL (0.2-1.0) Aspartate Amino Transf (AST/SGOT) 28 U/L (15-37) Alanine Aminotransferase (ALT/SGPT) 28 U/L (16-63) Alkaline Phosphatase 45 U/L (46-116) Total Protein 7.5 g/dL (6.4-8.2) Albumin 3.1 g/dL (3.4-5.0) Albumin/Globulin Ratio 0.7 (1.0-1.7) Results All relevant outside records, renal labs, imaging studies, telemetry/EKG's were reviewed. JEREMIAH LESLIE MD Oct 28, 2018 13:49
--- NOTE | 2018-10-28 14:44 | NUR ---
SS following up with discharge planning. SS met with pt and pt's spouse and discussed home healthcare for home. Pt and pt's spouse declined stating that they will have regular follow ups with there doctors and wound care. Pt's RN notified.
--- NOTE | 2018-10-28 14:45 | RAD ---
CT CHEST WO CONTRAST Indication: Hyponatremia. Lymphedema. Shortness of breath. Fatigue for 2 months. Exposure: One or more of the following individualized dose reduction techniques were utilized for this examination: 1. Automated exposure control 2. Adjustment of the mA and/or kV according to patient size 3. Use of iterative reconstruction technique. Technique: Standard imaging without intravenous contrast. No prior study for comparison. Partially visualized thyroid appears symmetric. No significant lymph node enlargement. Coronary artery calcification. No pericardial effusion or pleural effusion. There is a dense nodule at the anterior left lung compatible with a granuloma. No evidence of infiltrate. Trachea and mainstem bronchi are patent. Degenerative spondylosis. No aggressive bone destruction. Limited upper abdomen evaluation due to the technique but no obvious acute finding. IMPRESSION: No acute abnormality. Electronically signed by: Дмитрий Goldstein MD (10/28/2018 2:42 PM) [id number]
[2018-10-28 14:51] VITALS: BP 108/56
[2018-10-28] MEDS ORDERED: LACT1CAP19 PO (14:52)
[2018-10-28] MEDS ORDERED: MULT1TAB90 PO (14:52)
[2018-10-28] MEDS ORDERED: DILT30TA26 PO (14:52)
[2018-10-28] MEDS ORDERED: AMOX1TAB11 PO (14:52)
[2018-10-28] MEDS ORDERED: ASPI-630 PO (14:52)
[2018-10-28] MEDS ORDERED: NYST60PO TP (14:52)
--- NOTE | 2018-10-28 16:00 | NUR ---
Discharge Note: TELMA EID Discharge instructions and discharge home medications reviewed with Patient and a copy given. All questions have been answered and understanding verbalized. Follow up information given to patient. The following instructions and handouts were given: Hyperkalemia, Hyponatremia, Atrial Fibrillation, Lymphedema, and Acute Kidney Injury. New medication information given on Cardizem, Nystatin, and Augmentin. Discontinued lines and drains: Peripheral IV intact. Patient discharged to Home or Self Care with Spouse via Wheelchair
== END 2018-10-28 16:00 | disposition home or self-care (01) | DRG 682 ==
LOC: ER 14:27 → 2 NORTH 17:50
PROVIDERS: ADMIT Family Medicine; ATTEND Family Medicine
DX: N17.9 Acute kidney failure, unspecified (principal); I50.33 Acute on chronic diastolic (congestive) heart failure; E87.1 Hypo-osmolality and hyponatremia; L97.929 Non-pressure chronic ulcer of unspecified part of left lower leg with unspecified severity; L97.919 Non-pressure chronic ulcer of unspecified part of right lower leg with unspecified severity; I48.1 Persistent atrial fibrillation; Z68.43 Body mass index [BMI] 50.0-59.9, adult; L03.119 Cellulitis of unspecified part of limb; F11.20 Opioid dependence, uncomplicated; E03.9 Hypothyroidism, unspecified; M19.90 Unspecified osteoarthritis, unspecified site; E87.5 Hyperkalemia; G89.29 Other chronic pain; K21.9 Gastro-esophageal reflux disease without esophagitis; I48.2 Chronic atrial fibrillation; I89.0 Lymphedema, not elsewhere classified; G47.33 Obstructive sleep apnea (adult) (pediatric); E66.01 Morbid (severe) obesity due to excess calories; B37.9 Candidiasis, unspecified; J84.10 Pulmonary fibrosis, unspecified; M47.9 Spondylosis, unspecified; Z80.8 Family history of malignant neoplasm of other organs or systems; Z80.6 Family history of leukemia; Z82.49 Family history of ischemic heart disease and other diseases of the circulatory system; Z82.5 Family history of asthma and other chronic lower respiratory diseases; Z91.19 Patient's noncompliance with other medical treatment and regimen
CPT/HCPCS: 36415; 71046; 71250; 80048; 80053; 81001; 82436; 82553; 83605; 83735; 83880; 83930; 83935; 84133; 84300; 84443; 84484; 85025; 93005; J1940; J2248; J7030; 99285-25